=== PATIENT | male | born 1950 | race Caucasian/White ===

== ENCOUNTER 2020-12-23 07:33 | Inpatient (IN) | payer MEDICARE, MEDICAID, SELFPAY ==
[2020-12-23] VITALS (10 sets, daily range): BP systolic 93–196; BP diastolic 58–116; PULSE 106–114; RESP 16–23; TEMP 35.6–37.3; O2SAT 92–100; BMI 19.5
--- NOTE | 2020-12-23 07:44 | EKG12_ITS ---
Test Reason : FALL Blood Pressure : / mmHG Vent. Rate : 108 BPM Atrial Rate : 100 BPM P-R Int : 000 ms QRS Dur : 078 ms QT Int : 344 ms P-R-T Axes : 000 007 061 degrees QTc Int : 460 ms Undetermined rhythm : Consider Atrial Fibrillation Low voltage QRS (Limb Leads) Confirmed by SANDIE ROGERS, LAWANDA ([id number]), loan expeditor ARSLAN GIVENS ([id number]) on 12/27/2020 8:55:06 AM Referred By: EVELIN Confirmed By:LAWANDA HOOPER MD
--- NOTE | 2020-12-23 07:48 | EDS_ITS ---
HPI History of Present Illness Chief Complaint: Fall Informant: patient and EMS Narrative Narrative: 70-year-old male with a history of seizure disorder presents to the emergency department following multiple falls over the past couple days. He tells me about 2 days ago he fell injuring his low back was able to get up and care for himself. He fell again during the night and injured his upper back and was unable to get up off the floor. Eventually he is able to crawl out of the bathroom and call his consulting technical manager of his apartment complex and then EMS was dispatched to his residence. Patient states he feels globally weak. He denies any recent seizure activity. [facility] Medical History (Updated 12/23/20 @ 10:[address] Claude Wilkes DO) High cholesterol Neurofibromatosis Seizures Home Medications ethosuximide [Zarontin] 250 mg PO BID 03/09/13 [History Last Taken Unknown] phenobarbital 32.4 mg PO TID 03/09/13 [History Last Taken Unknown] phenytoin sodium extended 100 mg PO TID 03/09/13 [History Last Taken Unknown] primidone 250 mg PO BID 03/09/13 [History Last Taken Unknown] simvastatin 10 mg PO QHS 12/23/20 [History Last Taken Unknown] Allergy/AdvReac Type Severity Reaction Status Date / Time No Known Allergies Allergy Verified 12/23/20 07:49 Surgical History unable to obtain Social History (Updated 12/23/20 @ 07:[address] Claude Wilkes DO) Smoking Status: Former smoker substance use type: does not use ROS ROS ED Constitutional Constitutional ED: Denies chills, fever(s) or weight loss Eyes Eyes: Denies change in vision or diplopia ENT ENT ED: Denies ear pain, rhinorrhea or sore throat Cardiovascular Cardiovascular: Denies chest pain, orthopnea, palpitations or racing heartbeat Respiratory/Chest Respiratory/Chest: Reports dyspnea and dyspnea on exertion; Denies cough or orthopnea Gastrointestinal Gastrointestinal: Denies abdominal pain, diarrhea, nausea or vomiting Genitourinary Genitourinary ED: Denies dysuria, hematuria or urinary frequency Musculoskeletal Musculoskeletal: Reports back pain and myalgias; Denies arthralgias Integumentary Denies abscess or rash Neurologic Neurologic: Denies headache(s) or weakness Psychiatric Psychiatric: Denies anxiety, depression, suicidal ideation or suicidal thoughts Endocrine Endocrinology: Denies polydipsia, polyphagia or polyuria Allergic/Immunologic Allergic/Immunologic ED: Denies mouth swelling, tongue swelling or urticaria EXAM Physical Exam Narrative Exam Narrative: Patient appears very elderly and frail Const Vital Signs: 12/23/20 07:34 12/23/20 08:04 12/23/20 08:07 Temperature 96.0 F L 96.0 F L Temperature Source Temporal Temporal Pulse Rate 113 H 113 H Respiratory Rate 20 H 20 H Respiratory Effort Normal Non-Labored Blood Pressure 129/105 H 129/105 H Blood Pressure Mean 113 113 Pulse Ox 92 92 Oxygen Delivery Method Room Air Room Air 12/23/20 09:01 12/23/20 10:00 Temperature 96.8 F L 96.5 F L Temperature Source Temporal Temporal Pulse Rate 108 H 109 H Respiratory Rate 20 H 23 H Respiratory Effort Blood Pressure 196/94 H 167/98 H Blood Pressure Mean 128 121 Pulse Ox 92 93 Oxygen Delivery Method Room Air Room Air Positive well nourished and well developed General Appearance ED: well developed HEENT Reports normocephalic, head/scalp atraumatic, TM's clear and moist mucous membranes Negative for trauma Tympanic Membrane ED: Yes TM's clear Eyes PERRL and EOMs intact bilaterally Neck no lymphadenopathy, supple and no JVD Resp normal respiratory effort and clear to auscultation bilaterally Cardio regular rate, regular rhythm and no murmurs GI normal to inspection, nondistended, normoactive bowel sounds and non-tender Palpation: soft Back/Spine normal ROM Back/Spine Narrative: Patient complains of generalized lumbar and thoracic back pain. Extremity General Extremety ED: Negative for edema or tenderness General Extremity: Negative for edema Neuro oriented x3 and CN's II-XII intact bilaterally Sensorium / Orientation: alert Motor Exam: strength 5/5 throughout Psych mental status grossly normal Mood & Affect: Negative for depressed or tearful Skin no rashes or lesions noted Skin Narrative: Patient has some mild erythema possible rug aragon on his knees. MDM MDM MDM Narrative Medical decision making narrative: White count 21.5 hemoglobin 16.2. Platelet count of 275. Urinalysis which was a cath specimen is 5-10 red cells 25-50 white cells 2+ bacteria negative nitrates positive leukocyte esterase. CPK is 4000. Lactic acid is normal. Patient's creatinine is elevated off baseline representing AKA with a significantly high BUN of 80. Dilantin level in the therapeutic range but phenobarbital in the supratherapeutic range. Urine culture and blood cultures were sent. CT of the brain cervical spine chest abdomen pelvis does not show anything acute and no acute fractures. Patient received IV fluids. Patient received a dose of IV Rocephin plan will be for hospitalization for continued care. Lab Data Attestation: I reviewed the patient's lab results. Labs: Laboratory Results - last 24 hr 12/23/20 12/23/20 12/23/20 08:02 08:10 08:10 WBC 21.5 H RBC 4.77 Hgb 16.2 Hct 51.2 MCV 107.3 H MCH 34.0 H MCHC 31.6 L RDW Std Deviation 58.9 H RDW Coeff of Sully 14.7 H Plt Count 275 MPV 9.9 Immature Gran % (Auto) 1.300 H Neut % (Auto) 85.9 H Lymph % (Auto) 5.8 L [place] % (Auto) 6.8 Eos % (Auto) 0.0 Baso % (Auto) 0.2 Absolute Neuts (auto) 18.5 H Absolute Lymphs (auto) 1.24 Nucleated RBC % 0.1 PT 15.4 H INR 1.3 APTT 42.8 H Sodium Potassium Chloride Carbon Dioxide Anion Gap BUN Creatinine Estim Creat Clear Calc Est GFR (MDRD) Af Amer Est GFR (MDRD) Non-Af BUN/Creatinine Ratio Glucose Lactic Acid Calcium Total Bilirubin AST ALT Alkaline Phosphatase Total Creatine Kinase Troponin I High Sens Total Protein Albumin Globulin Albumin/Globulin Ratio Lipase Urine Color Yellow Urine Clarity Sl. Cloudy Urine pH 5.0 Ur Specific [place] 1.020 Urine Protein 30 H Urine Glucose (UA) Normal Urine Ketones 15 H Urine Occult Blood 250 H Urine Nitrite Negative Urine Bilirubin Negative Urine Urobilinogen Normal Ur Leukocyte Esterase 500 H Urine RBC 5-10 SEEN Urine WBC 25-50 SEEN Ur Squamous Epith Cells 0-5 SEEN Urine Bacteria 2+ Urine Mucus 1+ Phenytoin Phenobarbital 12/23/20 12/23/20 12/23/20 08:10 08:10 08:10 WBC RBC Hgb Hct MCV MCH MCHC RDW Std Deviation RDW Coeff of Sully Plt Count MPV Immature Gran % (Auto) Neut % (Auto) Lymph % (Auto) [place] % (Auto) Eos % (Auto) Baso % (Auto) Absolute Neuts (auto) Absolute Lymphs (auto) Nucleated RBC % PT INR APTT Sodium 145 Potassium 4.6 Chloride 110 H Carbon Dioxide 17.0 L Anion Gap 18 H BUN 80 H Creatinine 2.36 H Estim Creat Clear Calc 25.11 Est GFR (MDRD) Af Amer 35 L Est GFR (MDRD) Non-Af 29 L BUN/Creatinine Ratio 33.9 H Glucose 84 Lactic Acid Cancelled Calcium 9.2 Total Bilirubin 0.40 AST 213 H ALT 86 H Alkaline Phosphatase 146 H Total Creatine Kinase 4079 H Troponin I High Sens 28 Total Protein 9.1 H Albumin 3.4 Globulin 5.7 H Albumin/Globulin Ratio 0.6 L Lipase 75 Urine Color Urine Clarity Urine pH Ur Specific [place] Urine Protein Urine Glucose (UA) Urine Ketones Urine Occult Blood Urine Nitrite Urine Bilirubin Urine Urobilinogen Ur Leukocyte Esterase Urine RBC Urine WBC Ur Squamous Epith Cells Urine Bacteria Urine Mucus Phenytoin 11.2 Phenobarbital 51.4 H* 12/23/20 09:25 WBC RBC Hgb Hct MCV MCH MCHC RDW Std Deviation RDW Coeff of Sully Plt Count MPV Immature Gran % (Auto) Neut % (Auto) Lymph % (Auto) [place] % (Auto) Eos % (Auto) Baso % (Auto) Absolute Neuts (auto) Absolute Lymphs (auto) Nucleated RBC % PT INR APTT Sodium Potassium Chloride Carbon Dioxide Anion Gap BUN Creatinine Estim Creat Clear Calc Est GFR (MDRD) Af Amer Est GFR (MDRD) Non-Af BUN/Creatinine Ratio Glucose Lactic Acid 0.6 Calcium Total Bilirubin AST ALT Alkaline Phosphatase Total Creatine Kinase Troponin I High Sens Total Protein Albumin Globulin Albumin/Globulin Ratio Lipase Urine Color Urine Clarity Urine pH Ur Specific [place]kinson Urine Protein Urine Glucose (UA) Urine Ketones Urine Occult Blood Urine Nitrite Urine Bilirubin Urine Urobilinogen Ur Leukocyte Esterase Urine RBC Urine WBC Ur Squamous Epith Cells Urine Bacteria Urine Mucus Phenytoin Phenobarbital Radiography Diagnostic Testing: Clinical Impression(s) from Imaging Studies Brain CT 12/23/20 09:36 IMPRESSION: Chronic involutional changes of the brain. Electronically Signed: Yonatan Correa MD at 10:05 EDT , Service support , Cervical Spine CT 12/23/20 09:36 IMPRESSION: Multilevel degenerative changes, as described above. Multiple well-defined small soft tissue nodules in the cervical region. Electronically Signed: Yonatan Correa MD at 10:07 EDT , Service support , Chest/Abdomen/Pelvis CT 12/23/20 09:36 IMPRESSION: 1.9 cm x 3 some cystic nodule in the anterior lateral aspect of the upper pole of the left kidney with peripheral calcification. Electronically Signed: Yonatan Correa MD at 10:13 EDT , Service support , EKG Initial EKG: Attestation: I personally reviewed and interpreted this EKG as follows: Comments: Sinus tachycardia ventricular rate of 108 bpm Discharge Plan Triage Chief Complaint: Fall ED Provider: Claude Wilkes Dx/Rx/DC Orders Clinical Impression: Acute kidney injury, Acute dehydration, Rhabdomyolysis, Acute UTI, Acute lumbar myofascial strain, Acute cervical myofascial strain Prescriptions: No Action ethosuximide [Zarontin] 250 MG capsule 250 mg PO BID RF: 0 phenytoin sodium extended 100 MG capsule 100 mg PO TID RF: 0 primidone 250 MG tablet 250 mg PO BID RF: 0 phenobarbital 32.4 MG tablet 32.4 mg PO TID RF: 0 simvastatin 10 mg Tablet 10 mg PO QHS RF: 0 Primary Care Provider: Stephanie Tejada Referrals: Stephanie Tejada MD [Primary Care Provider] - Disposition Disposition: [facility]
[2020-12-23] MEDS: 0.9% Normal Saline 1,000 ML 1000 ML IV (08:20)
[2020-12-23 08:26] LABS: Absolute Lymphocyte Count 1.24 X10^3/uL (0.83-4.51); Absolute Neutrophil Count 18.5 X10^3/uL (2.0-7.7); Basophil# 0.05 X10^3/uL; Basophil% 0.2 % (0-1); Hematocrit 51.2 % (40-54); Hemoglobin 16.2 g/dL (13.0-16.5); Lymphocyte # 1.24 X10^3/ul (0.83-4.51); Lymphocyte % 5.8 % (19-41); Mean Corp Hgb Conc 31.6 g/dL (32-36); Mean Corpuscular Volume 107.3 fL (80-94); Mean Platelet Vol. 9.9 fl (6.2-12.0); Monocyte# 1.45 X10^3/uL; Monocyte% 6.8 % (0-10); NRBC Flagged by Analyzer 0.1 % (0-5); Neutrophil # 18.47 X10^3/uL (2.7-7.7); Neutrophil % 85.9 % (47-70); Platelet Count 275 K/mm3 (150-450); RBC Distribution Width CV 14.7 % (11.6-14.6); RBC Distribution Width SD 58.9 fl (35.1-43.9); Red Blood Count 4.77 M/mm3 (4.6-6.2); White Blood Count 21.5 K/mm3 (4.4-11.0)
[2020-12-23 08:31] LABS: International Normalized Ratio 1.3; Prothrombin Time (Protime)PT. 15.4 SECONDS (11.7-14.9)
[2020-12-23 08:32] LABS: Partial Thromboplast Time 42.8 Seconds (24.1-36.2)
[2020-12-23 09:05] LABS: Color, Urine Yellow (Yellow); Glucose, Dipstick Normal (Normal); Ketone-Dipstick 15 mg/dl (Negative); Leukocyte Esterase-Dipstick 500 /ul (Negative); Nitrite-Dipstick Negative (Negative); Occult Blood-Urine 250 /ul (Negative); Protein-Dipstick 30 mg/dl (Negative); Urine Bilirubin Dipstick Negative (Negative); Urine Clarity Sl. Cloudy (Clear); Urine Urobilinogen Normal (Normal)
[2020-12-23 09:16] LABS: Phenytoin (Dilantin) Level 11.2 mL (10.0-20.0)
[2020-12-23 09:18] LABS: Bacteria 2+ /hpf (None Seen); Mucous, Urine 1+ /hpf (<or=2+); Red Blood Cells-Urine 5-10 SEEN /hpf (0-5); Squamous Epithelial Cells - UA 0-5 SEEN /hpf (0-5); White Blood Cells 25-50 SEEN /hpf (0-5)
[2020-12-23 09:31] LABS: ALB/GLOB Ratio 0.6 RATIO (0.9-2.4); AST(SGOT) 213 U/L (15-37); Alanine Aminotransfer ALT/SGPT 86 U/L (16-61); Albumin, Serum 3.4 g/dL (3.2-5.0); Alkaline Phosphatase 146 U/L (45-117); Anion Gap 18 (5-15); BUN 80 mg/dL (7-18); BUN/Creat Ratio 33.9 RATIO (10-20); CPK Total, Creatine Kinase 4079 U/L (39-308); Calcium,Total 9.2 mg/dL (8.5-10.1); Chloride 110 mmol/L (98-107); Creatinine, Serum 2.36 mg/dL (0.70-1.30); EST Glomerular Filtration Rate 29 mL/min (>60); Est Glom Filt Rate - Afr Amer 35 mL/min (>60); Estimated Creatinine Clearance 25.11 ml/min; Globulin 5.7 g/dL (2.2-4.2); Glucose 84 mg/dL (74-106); Lipase 75 U/L (73-393); Potassium 4.6 mmol/L (3.5-5.1); Protein, Total 9.1 g/dL (6.4-8.2); Sodium Level 145 mmol/L (136-145); Troponin-I HS 28 pg/mL (3.0-78.0)
--- NOTE | 2020-12-23 09:36 | CT_ITS ---
STUDY: CT CERVICAL SPINE WITHOUT CONTRAST REASON FOR EXAM: Male, 70 years old. Injury RADIATION DOSAGE (If Supplied By Facility): CTDIvol = ( 14.036 ) mGy, DLP = ( 328.59 ) mGycm TECHNIQUE: High resolution transaxial imaging was performed without contrast material. Sagittal and coronal images were reconstructed. Individualized dose optimization techniques were used for this CT. COMPARISON: None FINDINGS: Multiple subcutaneous nodules are seen in the cervical region. Does the patient have neurofibromatosis? Normal craniovertebral junction. Normal anterior atlantoaxial articulation. Normal odontoid process. Normal cervical lordosis. Normal vertebral bodies and posterior osseous elements. C2-3: Normal endplates. Normal disc height and morphology. Normal central canal and intervertebral neuroforamina. C3-4: Normal endplates. Normal disc height and morphology. Normal central canal and intervertebral neuroforamina. C4-5: Normal endplates. Normal disc height and morphology. Normal central canal and intervertebral neuroforamina. C5-6: Moderate degree of disc space narrowing. Spondylosis. Uncovertebral arthrosis. Facet joint osteoarthritis and hypertrophy. Bilateral neural foraminal stenosis. This is worse on the right side. C6-7: Facet joint osteoarthritis and hypertrophy. Mild degree of bilateral neural foraminal stenosis. C7-T1: Normal endplates. Normal disc height and morphology. Normal central canal and intervertebral neuroforamina. Calcification of the carotid bifurcations bilaterally. CT/Spine Cervical without Contras IMPRESSION: Multilevel degenerative changes, as described above. Multiple well-defined small soft tissue nodules in the cervical region. Electronically Signed: Yonatan Correa MD at 10:07 EDT , Service support ,
--- NOTE | 2020-12-23 09:36 | CT_ITS ---
STUDY: CT BRAIN WITHOUT CONTRAST REASON FOR EXAM: Male, 70 years old. Head injury. RADIATION DOSAGE (If Supplied By Facility): CTDIvol = ( 44.99 ) mGy, DLP = ( 829.85 ) mGycm TECHNIQUE: Transaxial CT imaging of the brain was performed without administration of intravenous contrast material. Individualized dose optimization techniques were used for this CT. COMPARISON: No relevant priors. FINDINGS: There are several well-defined soft tissue nodules in the skull overlying the left posterior parietal and right parietal bones. The largest nodule measures 1 cm x 1.5 cm. Normal calvarium. There is mild cerebral atrophy with widening of the extra-axial spaces and ventricular dilatation. There are areas of decreased attenuation within the white matter tracts of the supratentorial brain, consistent with microvascular disease changes. 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 Normal brainstem. Normal cerebellum. There is no intracranial hemorrhage. There are no findings of an acute ischemic infarction. Atherosclerotic calcification of the cavernous portions of the internal carotid arteries and vertebral arteries. Mild mucosal thickening of the ethmoid sinuses and maxillary sinuses. CT/Brain/Head without Contrast IMPRESSION: Chronic involutional changes of the brain. Electronically Signed: Yonatan Correa MD at 10:05 EDT , Service support ,
--- NOTE | 2020-12-23 09:36 | CT_ITS ---
STUDY: CT CHEST, ABDOMEN T PELVIS WITHOUT CONTRAST REASON FOR EXAM: Male, 70 years old. Trauma RADIATION DOSAGE (If Supplied By Facility): CTDIvol = ( 10.15 ) mGy, DLP = ( 931.67 ) mGycm TECHNIQUE: Transaxial imaging was performed without the administration of intravenous contrast material. Individualized dose optimization techniques were used for this CT. COMPARISON: No relevant priors. FINDINGS: CHEST Small benign-appearing bilateral axillary lymph nodes. Multiple small soft tissue nodules are seen in the anterior and posterior thorax. Findings suggest R no fibromatosis. Hyperinflation. Evidence of bilateral increased interstitial markings and scarring with subpleural blebs worse in the lower lobes. There is no demonstrated pleural abnormality. There are calcifications of the coronary arteries. There are multiple small lymph nodes within the mediastinum, which are normal in size and morphology most compatible with reactive lymph hyperplasia. Normal hilar regions. Normal unenhanced pulmonary arteries. There is atherosclerotic calcification of the aortic arch . There is demineralization of the thoracic spine. ABDOMEN Normal liver. Normal gallbladder and extrahepatic biliary system. Normal spleen. Normal pancreas. Normal bilateral adrenal glands. Normal right kidney. There is a 1.9 cm x 3 cm cystic nodule in the anterior lateral aspect of the upper pole of the left kidney with peripheral calcification. There is a small hiatal hernia. Normal small intestine. Normal colon. The appendix is visualized and appears normal. There is diffuse atherosclerotic calcification of the abdominal aorta and its major visceral branches, without a demonstrated aneurysm. Normal inferior vena cava. Normal retroperitoneum. Normal abdominal wall. Loss of the normal cervical lordosis. Disc space narrowing at the L2-L3 level. PELVIS A BRODY catheter is seen within the urinary bladder. Urinary bladder is empty. The prostate is enlarged. It measures 5 cm x 4.7 cm. Calcifications are seen within it. CT/CT Chest, Abd, Pelvis WO Cont IMPRESSION: 1.9 cm x 3 some cystic nodule in the anterior lateral aspect of the upper pole of the left kidney with peripheral calcification. Electronically Signed: Yonatan Correa MD at 10:13 EDT , Service support ,
[2020-12-23] MEDS: 0.9% Normal Saline 1,000 ML 250 ML IV (09:52)
[2020-12-23] MEDS: Ceftriaxone 1 GM/50 ML BAG IV (09:53)
[2020-12-23 10:20] LABS: Lactic Acid 0.6 mmol/L (0.4-1.9)
--- NOTE | 2020-12-23 11:46 | PCS.PANDOC ---
PANDEMIC DOCUMENTATION INITIATED: Date: 10/10/2020 Time: 190
[2020-12-23] MEDS: 0.9% Normal Saline 1,000 ML 150 ML IV ×2 (14:18→21:02)
--- NOTE | 2020-12-23 15:50 | CASEMGMT ---
HUGH SAGASTUME OYSTER WASHER TANIKA to room to meet with patient for initial transition planning/care coordination assessment. HUGH SAGASTUME introduced self and role at [facility]. Pt voices understanding and consents to assessment at this time. Pt resting in bed in no distress at this time. Brother, Daniel, is at bedside. Pt is A/O at this time and answers all questions appropriately. Care providers, pharmacy, and demographics verified/updated at this time. PCP: Dr Tejada. Pt last saw her in person about 1 1/2 yrs ago prior to COVID and has had 1-2 phone appts w/her since then. Specialists: Dr Godfrey @ [facility] Preferred Pharmacy: [facility] Insurance: [employer] Prescription Benefit: Yes Living Will/HPOA: Pt and danyelle state they do not think pt has LW or HCPOA and pt would like to complete these while @ [facility]. Pt states would want his brother, Daniel Hawthorne to be primary POA and 1st alternative to be his sister, Sharlene Hawthorne. Aparna GUALLPA, made aware. LNOK: Daniel, Brother. Sharlene Collado, sister. Pt also has 2 other brothers. Living Arrangements: Lives alone in single-story apartment w/3 steps to enter. Pt was independent w/ADL's and IADL's until recently he has become very weak and has had multiple falls. (Pt states he was able to do his own grocery shopping, prepare meals, home mgmt tasks, etc, prior) Transportation: Pt purchases taxi vouchers and uses [employer]. Brother, Daniel, takes him to dr palacios when available. DME: Denies using any DME. He has a cane but does not use it. HHC/SNF: No hx of either. Pt states he would like to go to SNF @ d/c and wants to get 100% better before returning home. Neither pt nor brother have preference and would like to review list of SNF's. PLAN: SNF [facility], aware of pt would like to complete AD and also pt wishing to go to SNF @ d/c and pt/brother would like list to review. Dede SNYDER RN, CM
[2020-12-23] MEDS: Phenytoin Na 100 MG Capsule PO (17:12)
--- NOTE | 2020-12-23 17:29 | CASEMGMT ---
Social Work Note SW received consult for SNF placement and Advanced Directives. SW in to speak with pt. Pt currently working with PT. SW introduced self and role at [facility]. SW spoke with pt about SNF. Patient was provided a list of SNF providers including quality and resource use data and consistent with the patient?s preferred geographic region, medical needs, and insurance network. SW also provided pt with advanced directives. SW informed pt that this worker will have SW check in with pt tomorrow regarding SNF choices and advanced directives. Pt states understanding. Plan: SNF pending acceptance and pre-cert [facility]
--- NOTE | 2020-12-23 18:07 | HP.PCM.HOS_ITS ---
HPI - General General Date of Admission: 12/23/20 HPI Narrative SABA DOMINGUEZ, is a 70 M who presents to the hospital after being found down for possible over 24 hours. He has a history of neurofibromatosis and has been getting weak over the last several days, he states that he has had multiple falls since Saturday and his last time he fell yesterday morning he was unable to get up. He was able to crawl and call for help and was brought to the ER. He has also had some weight loss, initially it was on purpose but he states lately he is just lost his appetite and has not been eating a whole lot at home. In the ER he was found to have an elevated CPK over 4000 with a creatinine of 2.36 which is above normal for him. He was also found to have a likely UTI with a leukocytosis. [facility] Medical History (Updated 12/23/20 @ 18:[address] Chase Bruno MD) High cholesterol Migraines Neurofibromatosis Seizures Home Medications ethosuximide [Zarontin] 250 mg PO BID 03/09/13 [History Last Taken 12/21/20] phenobarbital 32.4 mg PO TID 03/09/13 [History Last Taken 12/20/20] phenytoin sodium extended 100 mg PO TID 03/09/13 [History Last Taken 12/21/20] primidone 250 mg PO BID 03/09/13 [History Last Taken 12/21/20] fluticasone propionate [Flonase] 1 spray INTRANASAL DAILY 12/23/20 [History Last Taken 12/21/20] latanoprost 1 drp EACH EYE DAILY 12/23/20 [History Last Taken 12/21/20] simvastatin 10 mg PO QHS 12/23/20 [History Last Taken 12/20/20] vit D3-folic [id number] 1 tab PO DAILY 12/23/20 [History Last Taken 12/21/20] Allergy/AdvReac Type Severity Reaction Status Date / Time No Known Allergies Allergy Verified 12/23/20 07:49 Family History (Updated 12/23/20 @ 18:[address] Chase Bruno MD) Other CVA (cerebral vascular accident) Surgical History unable to obtain no surgical history Social History (Updated 12/23/20 @ 07:[address] Claude Wilkes DO) Smoking Status: Former smoker substance use type: does not use ROS Constitutional Constitutional: Reports weakness; Denies chills, fatigue, fever(s) or malaise Eyes Eyes: Denies blurry vision ENT HEENT: Denies headache(s) or nasal discharge Cardiovascular Cardiovascular: Denies chest pain, dyspnea on exertion or syncope Respiratory/Chest Respiratory/Chest: Denies cough, shortness of breath at rest or shortness of breath with exertion Gastrointestinal Gastrointestinal: Denies constipation, diarrhea, nausea or vomiting Genitourinary Genitourinary: Denies dysuria Musculoskeletal Musculoskeletal: Reports back pain Neurologic Neurologic: Denies focal weakness, numbness or tremor(s) Psychiatric Psychiatric: Denies anxiety or depression Vital Signs Vital Signs Vital Signs: 12/23/20 07:34 12/23/20 08:04 12/23/20 08:07 Temperature 96.0 F L 96.0 F L Temperature Source Temporal Temporal Pulse Rate 113 H 113 H Respiratory Rate 20 H 20 H Respiratory Effort Normal Non-Labored Respiratory Depth Respiratory Pattern Blood Pressure 129/105 H 129/105 H Blood Pressure Mean 113 113 Blood Pressure Source Blood Pressure Position Blood Pressure Location Pulse Ox 92 92 Oxygen Delivery Method Room Air Room Air Oxygen Flow Rate (L/min) 12/23/20 09:01 12/23/20 10:00 12/23/20 10:40 Temperature 96.8 F L 96.5 F L 97.7 F L Temperature Source Temporal Temporal Axillary Pulse Rate 108 H 109 H Respiratory Rate 20 H 23 H Respiratory Effort Respiratory Depth Respiratory Pattern Blood Pressure 196/94 H 167/98 H Blood Pressure Mean 128 121 Blood Pressure Source Blood Pressure Position Blood Pressure Location Pulse Ox 92 93 Oxygen Delivery Method Room Air Room Air Oxygen Flow Rate (L/min) 12/23/20 11:16 12/23/20 12:21 12/23/20 12:38 Temperature 97.7 F L 97 F L Temperature Source Oral Temporal Pulse Rate 114 H 112 H Respiratory Rate 20 H 16 Respiratory Effort Normal Respiratory Depth Normal Respiratory Pattern Normal Blood Pressure 106/65 154/116 H Blood Pressure Mean 78 128 Blood Pressure Source Monitor Blood Pressure Position Semi-Fowlers Blood Pressure Location Right Arm Pulse Ox 95 93 Oxygen Delivery Method Nasal Cannula Nasal Cannula Nasal Cannula Oxygen Flow Rate (L/min) 2 2 2 12/23/20 17:22 Temperature 97.7 F L Temperature Source Oral Pulse Rate 106 H Respiratory Rate 16 Respiratory Effort Respiratory Depth Respiratory Pattern Blood Pressure 96/58 L Blood Pressure Mean 70 Blood Pressure Source Monitor Blood Pressure Position Semi-Fowlers Blood Pressure Location Left Arm Pulse Ox 100 Oxygen Delivery Method Nasal Cannula Oxygen Flow Rate (L/min) 2 Weight Weight: 128 lb Body Mass Index (BMI) 20.0 Physical Exam Const alert, oriented x3 and no apparent distress General Appearance: cooperative HEENT normocephalic and moist oral mucous membranes Eyes PERRL, EOMs intact bilaterally and conjunctivae normal Neck supple and no JVD Resp normal respiratory effort, no retractions, no use of accessory muscles and clear to auscultation bilaterally Auscultation: Negative for crackles, rales, rhonchi or wheezes Cardio regular rate, regular rhythm, S1 normal heart sound, S2 normal heart sound and no murmurs GI soft to palpation, non-tender and non-distended; Negative for hepatosplenomegaly Extremity no clubbing, cyanosis or edema Skin Skin Narrative: Extensive neurofibromas as well as abrasions his bilateral lower extremities Neuro no focal motor deficits and no sensory deficits noted Psych affect normal Appearance: appropriate Results Lab / Micro Data Result Diagrams: 12/23/20 08:10 12/23/20 08:10 Labs: Laboratory Results - last 24 hr 12/23/20 08:02: Urine Color Yellow, Urine Clarity Sl. Cloudy, Urine pH 5.0, Ur Specific [place] 1.020, Urine Protein 30 H, Urine Glucose (UA) Normal, Urine Ketones 15 H, Urine Occult Blood 250 H, Urine Nitrite Negative, Urine Bilirubin Negative, Urine Urobilinogen Normal, Ur Leukocyte Esterase 500 H, Urine RBC 5-10 SEEN, Urine WBC 25-50 SEEN, Ur Squamous Epith Cells 0-5 SEEN, Urine Bacteria 2+, Urine Mucus 1+ 12/23/20 08:10: WBC 21.5 H, RBC 4.77, Hgb 16.2, Hct 51.2, MCV 107.3 H, MCH 34.0 H, MCHC 31.6 L, RDW Std Deviation 58.9 H, RDW Coeff of Sully 14.7 H, Plt Count 275, MPV 9.9, Immature Gran % (Auto) 1.300 H, Neut % (Auto) 85.9 H, Lymph % (Auto) 5.8 L, [place] % (Auto) 6.8, Eos % (Auto) 0.0, Baso % (Auto) 0.2, Absolute Neuts (auto) 18.5 H, Absolute Lymphs (auto) 1.24, Nucleated RBC % 0.1 12/23/20 08:10: PT 15.4 H, INR 1.3, APTT 42.8 H 12/23/20 08:10: Sodium 145, Potassium 4.6, Chloride 110 H, Carbon Dioxide 17.0 L , Anion Gap 18 H, BUN 80 H, Creatinine 2.36 H, Estim Creat Clear Calc 25.11, Est GFR (MDRD) Af Amer 35 L, Est GFR (MDRD) Non-Af 29 L, BUN/Creatinine Ratio 33.9 H , Glucose 84, Calcium 9.2, Total Bilirubin 0.40, AST 213 H, ALT 86 H, Alkaline Phosphatase 146 H, Total Creatine Kinase 4079 H, Troponin I High Sens 28, Total Protein 9.1 H, Albumin 3.4, Globulin 5.7 H, Albumin/Globulin Ratio 0.6 L, Lipase 75 12/23/20 08:10: Lactic Acid Cancelled 12/23/20 08:10: Phenytoin 11.2, Phenobarbital 51.4 H* 12/23/20 09:25: Lactic Acid 0.[address] 12/23/20 09:36 IMPRESSION: Chronic involutional changes of the brain. Electronically Signed: Yonatan Correa MD at 10:05 EDT , Service support , Cervical Spine CT 12/23/20 09:36 IMPRESSION: Multilevel degenerative changes, as described above. Multiple well-defined small soft tissue nodules in the cervical region. Electronically Signed: Yonatan Correa MD at 10:07 EDT , Service support , Chest/Abdomen/Pelvis CT 12/23/20 09:36 IMPRESSION: 1.9 cm x 3 some cystic nodule in the anterior lateral aspect of the upper pole of the left kidney with peripheral calcification. Electronically Signed: Yonatan Correa MD at 10:13 EDT , Service support , Assessment & Plan Assessment/Plan (1) Rhabdomyolysis: (2) Acute UTI: (3) Acute kidney injury: (4) Sepsis: PLAN: 1. Sepsis secondary to UTI complicated by rhabdomyolysis/ARTURO -UA is consistent with UTI, will continue with Rocephin -Continue with aggressive IV fluids secondary to his sepsis and his rhabdomyolysis -Repeat CPK in the morning -Blood cultures and urine cultures are pending -PT/OT for evaluation and placement 2. Neurofibromatosis/epilepsy -We will obtain a speech therapy consult secondary to some swallowing issues at the bedside swallow by nursing -If unable to continue with p.o. antiseizure medications, will make adjustments to IV -Phenytoin level is normal DVT: SCDs Charges/Coding Visit Charges Inpatient E&M: 67419 Init Hosp L3
[2020-12-23] MEDS: 0.9% Saline Lock 10 ML Syringe IV (21:02)
[2020-12-23] MEDS: Primidone 250 MG Tablet PO (21:04)
[2020-12-23] MEDS: Atorvastatin Calcium 10 MG Tablet 5 MG PO (21:04)
[2020-12-23] MEDS: ETHOSUXIMIDE 250 MG CAPSULE PO (21:19)
[2020-12-24] VITALS (15 sets, daily range): BP systolic 81–124; BP diastolic 42–72; PULSE 74–128; RESP 18–30; TEMP 36.6–39.5; O2SAT 93–99
[2020-12-24] MEDS: 0.9% Normal Saline 1,000 ML 150 ML IV (03:12)
[2020-12-24 06:37] LABS: Absolute Lymphocyte Count 0.67 X10^3/uL (0.83-4.51); Eosinophil# 0.01 X10^3/uL; Eosinophils% 0.1 % (0-5); Hematocrit 34.4 % (40-54); Hemoglobin 11.1 g/dL (13.0-16.5); Lymphocyte # 0.67 X10^3/ul (0.83-4.51); Lymphocyte % 7.1 % (19-41); Mean Corp Hgb Conc 32.3 g/dL (32-36); Mean Corpuscular Hgb 33.9 pg (27.0-32.0); Mean Corpuscular Volume 105.2 fL (80-94); Mean Platelet Vol. 9.6 fl (6.2-12.0); Monocyte# 0.73 X10^3/uL; Monocyte% 7.7 % (0-10); NRBC Flagged by Analyzer 0 % (0-5); Neutrophil # 8.02 X10^3/uL (2.7-7.7); Neutrophil % 84.6 % (47-70); Platelet Count 136 K/mm3 (150-450); RBC Distribution Width CV 14.8 % (11.6-14.6); RBC Distribution Width SD 56.8 fl (35.1-43.9); Red Blood Count 3.27 M/mm3 (4.6-6.2); White Blood Count 9.5 K/mm3 (4.4-11.0)
[2020-12-24 07:33] LABS: Anion Gap 3 (5-15); BUN 40 mg/dL (7-18); BUN/Creat Ratio 35.1 RATIO (10-20); Calcium,Total 7.9 mg/dL (8.5-10.1); Chloride 123 mmol/L (98-107); Creatinine, Serum 1.14 mg/dL (0.70-1.30); EST Glomerular Filtration Rate 68 mL/min (>60); Est Glom Filt Rate - Afr Amer 82 mL/min (>60); Estimated Creatinine Clearance 50.22 ml/min; Glucose 113 mg/dL (74-106); Potassium 4.2 mmol/L (3.5-5.1); Sodium Level 150 mmol/L (136-145)
[2020-12-24] MEDS: Ceftriaxone 1 GM/50 ML BAG IV (10:07)
[2020-12-24] MEDS: Primidone 250 MG Tablet PO ×2 (10:11→20:43)
[2020-12-24] MEDS: Phenytoin Na 100 MG Capsule PO ×3 (10:11→17:03)
[2020-12-24] MEDS: ETHOSUXIMIDE 250 MG CAPSULE PO ×2 (10:14→20:48)
--- NOTE | 2020-12-24 10:15 | PN.HOSP_ITS ---
Subjective Subjective Doing well, no issues overnight. Does have some back pain that is rating a 4 out of 10 Objective Data Objective Data Vital Signs: Vital Signs Temp Pulse Resp BP Pulse Ox 98.8 F 106 H 20 H 95/54 L 94 12/24/20 08:36 12/24/20 08:36 12/24/20 08:36 12/24/20 08:36 12/24/20 08:36 Oxygen Flow Rate (L/min) 2 Oxygen Delivery Method Nasal Cannula Weight: 128 lb Body Mass Index (BMI) 20.0 Intake & Output: Intake and Output for Last 24 Hours 12/23/20 12/24/20 12/25/20 03:59 03:59 03:59 Intake Total 3975.00 / 3975.00 862.5 / 862.5 Output Total 950 / 950 275 / 275 Balance 3025.00 / 3025.00 587.5 / 587.5 Lab / Micro Data Result Diagrams: 12/24/20 06:30 12/24/20 06:30 Labs: Laboratory Results - last 24 hr 12/23/20 09:25: Lactic Acid 0.6 12/24/20 06:30: WBC 9.5, RBC 3.27 L, Hgb 11.1 L, Hct 34.4 L, MCV 105.2 H, MCH 33.9 H, MCHC 32.3, RDW Std Deviation 56.8 H, RDW Coeff of Sully 14.8 H, Plt Count 136 L, MPV 9.6, Immature Gran % (Auto) 0.500, Neut % (Auto) 84.6 H, Lymph % (Auto) 7.1 L, [place] % (Auto) 7.7, Eos % (Auto) 0.1, Baso % (Auto) 0.0, Absolute Neuts (auto) 8.0 H, Absolute Lymphs (auto) 0.67 L, Nucleated RBC % 0 12/24/20 06:30: Sodium 150 H, Potassium 4.2, Chloride 123 H, Carbon Dioxide 24.0, Anion Gap 3 L, BUN 40 H, Creatinine 1.14, Estim Creat Clear Calc 50.22, Est GFR (MDRD) Af Amer 82, Est GFR (MDRD) Non-Af 68, BUN/Creatinine Ratio 35.1 H , Glucose 113 H, Calcium 7.9 L 12/24/20 06:30: Phenobarbital 44.3 H* Physical Exam Const alert, oriented x3 and no apparent distress General Appearance: cooperative HEENT normocephalic and moist oral mucous membranes Eyes PERRL, EOMs intact bilaterally and conjunctivae normal Neck supple and no JVD Resp normal respiratory effort, no retractions, no use of accessory muscles and clear to auscultation bilaterally Auscultation: Negative for crackles, rales, rhonchi or wheezes Cardio regular rate, regular rhythm, S1 normal heart sound, S2 normal heart sound and no murmurs GI soft to palpation, non-tender and non-distended; Negative for hepatosplenomegaly Extremity no clubbing, cyanosis or edema Skin Skin Narrative: Extensive neurofibromas as well as abrasions over his bilateral lower extremities Neuro no focal motor deficits and no sensory deficits noted Psych affect normal Appearance: appropriate Assessment & Plan Assessment/Plan (1) Rhabdomyolysis: (2) Acute UTI: (3) Acute kidney injury: (4) Sepsis: PLAN: 1. Sepsis secondary to UTI complicated by rhabdomyolysis/ARTURO -UA is consistent with UTI, will continue with Rocephin -Creatinine has improved, however he is now hypernatremic and hyperchloremic therefore we will change him over to D5W -Repeat CPK in the morning -Blood cultures and urine cultures are pending -PT/OT for evaluation and placement -Speech therapy for evaluation 2. Neurofibromatosis/epilepsy -We will obtain a speech therapy consult secondary to some swallowing issues at the bedside swallow by nursing -If unable to continue with p.o. antiseizure medications, will make adjustments to IV -Phenytoin level is normal DVT: SCDs Charges/Coding Visit Charges Inpatient E&M: 89184 Subs Hosp L2
--- NOTE | 2020-12-24 13:00 | CM.ED ---
SW Note Referral Source: SW Referral Reason: Discharge Planning and Advanced Directive SW met with patient and his brother, Daniel Bella. Shayne inquired about the list and stated that his sister in law works at the [facility] but it is not highlighted. RAMU explained highlighted SNFs are in network. RAMU asked if family has determined a SNF and Shayne said that his sister is working on researching it now. RAMU requested that they leave message for Assigned child welfare caseworker, Syl, so she is aware of the plan on Saturday. Shayne verbalized understanding. SW and RN met with patient as Shayne had completed the Advanced Directives and this greeting card writer and RN were going to witness. However, patient started to sit up to sign but then said that he was having difficulty breathing. SW asked patient if he wanted to proceed to sign the Advanced Directives or wait to sign later. Patient said that he would sign them later. Shayne said that patient and him have discussed his (patients) wishes and are clear about the patient's desires and wishes but the Advanced Directives are a formality. Patient will be here over the weekend, per family, and thus assigned social secretary can follow up with patient on Saturday. RAMU provided Shayne with unit phone call and assigned social secretary phone number as he inquired as to how to obtain information. RAMU advised he can call unit or social secretary for status update. No other issues or concerns voiced. RAMU updated this is daily report. Plan: SNF at discharge. Anitha MELO
--- NOTE | 2020-12-24 13:20 | EKG12_ITS ---
Test Reason : MORNING EKG Blood Pressure : / mmHG Vent. Rate : 093 BPM Atrial Rate : 093 BPM P-R Int : 138 ms QRS Dur : 084 ms QT Int : 350 ms P-R-T Axes : 035 -08 035 degrees QTc Int : 435 ms Sinus rhythm with Premature atrial complexes Otherwise normal ECG When compared with ECG of 25-DEC-2020 18:20, MANUAL COMPARISON REQUIRED, DATA IS UNCONFIRMED Confirmed by LEIF ROGERS, LOYD ([id number]), website/blog editor ARSLAN GIVENS ([id number]) on 12/27/2020 12:29:10 P M Referred By: NIKHIL Confirmed By:BRADY YADAV MD
--- NOTE | 2020-12-24 13:25 | RAD_ITS ---
History: SOB EXAMINATION/TECHNIQUE: XR Chest 1 View: Portable COMPARISON: CT chest December 23, 2020 FINDINGS: LINES/DEVICES: None. LUNGS: Bilateral interstitial lung densities consistent with acute or chronic interstitial lung disease. No pneumothorax. MEDIASTINUM AND CARDIOVASCULAR STRUCTURES: Cardiac silhouette not enlarged. Central airways and mediastinal contour are unremarkable. BONES AND SOFT TISSUES: Unremarkable. RAD/Chest 1 View (Portable) IMPRESSION: Diffuse interstitial lung disease. at 1437 Reported and signed by: Jarett Hodgson MD Electronically Signed: Jarett Hodgson MD at 14:36 EDT Tel , Service support ,
[2020-12-24] MEDS: Lidocaine 5% Patch 1 PATCH TOPICAL (13:30)
--- NOTE | 2020-12-24 13:30 | NURSING ---
Patient was sitting in chair, states it was hard the breathe. VS taken and pulse ox was in the 70's. Patient was tachycardic. physical integration practitioner was called and patient was placed on non-rebreather. He was assisted back to bed. Dr. Bruno was notified and orders for EKG and chest xray were obtained. Pulse ox in the 90's with the NRB on. Was eventually weaned to 5L 02 N/C. Will continue to monitor.
--- NOTE | 2020-12-24 14:19 | CT_ITS ---
EXAM: CT ANGIOGRAPHY CHEST WITHOUT AND WITH INTRAVENOUS CONTRAST : 1950 CLINICAL INDICATION: Shortness of breath TECHNIQUE: Helically acquired angiography images were obtained of the chest without and with intravenous contrast. This CT exam was performed using one or more of the following dose reduction techniques: automated exposure control, adjustment of the mA and/or kV according to patient size, and/or use of iterative reconstruction technique. This report was created using [employer] report generation technology. MIP reconstructed images were created and reviewed. CONTRAST: IV 100mL Isovue-370 COMPARISON: December 23, 2020 FINDINGS: PULMONARY ARTERIES: Unremarkable. Normal in caliber. No evidence of pulmonary embolism. AORTA: Unremarkable. Normal in caliber. No evidence of dissection. GREAT VESSELS OF AORTIC ARCH: Unremarkable. Normal in caliber. No evidence of dissection. LUNGS AND PLEURAL SPACES: Increasing airspace opacification of both lower lobes of the lung which may represent pneumonia or pulmonary edema. The peripheral interstitial thickening of both lungs again seen related to chronic interstitial lung disease. Small peripheral pulmonary blebs are noted. No mass. No pleural effusion or thickening. HEART: Heart is normal size. No pericardial effusion. No signs of right heart strain. MEDIASTINUM: Moderate size hiatal hernia again noted. Stable prominent mediastinal lymph nodes noted likely reactive in nature. Esophagus is unremarkable. THYROID: Unremarkable. No thyroid lesions. BONES/JOINTS: Unremarkable. No suspicious lytic or blastic abnormality. CT/CTA Chest W/WO Contrast IMPRESSION: 1. No evidence of acute pulmonary embolism. 2. Increasing bibasilar pulmonary opacification which may represent pneumonia or pulmonary edema. 3. Chronic interstitial lung disease. Individualized dose optimization techniques were used for this CT. at 1637 Reported and signed by: Jarett Hodgson MD Electronically Signed: Jarett Hodgson MD at 16:36 EDT Tel , Service support ,
[2020-12-24] MEDS: Acetaminophen 325 MG Tablet 650 MG PO (14:49)
--- NOTE | 2020-12-24 16:58 | NURSING ---
LAB CALLED WITH RESULTS FOR BLOOD CULTURE AND TEXT SENT TO THIERRY Villarreal
[2020-12-24] MEDS: Furosemide 20 MG/2 ML VIAL IV (17:03)
[2020-12-24] MEDS: 0.9% Saline Lock 10 ML Syringe IV ×2 (17:03→20:44)
[2020-12-24] MEDS: Atorvastatin Calcium 10 MG Tablet 5 MG PO (20:43)
[2020-12-25] VITALS (23 sets, daily range): BP systolic 73–122; BP diastolic 45–68; PULSE 89–163; RESP 18–25; TEMP 36.4–39; O2SAT 92–100
[2020-12-25 06:34] LABS: Absolute Lymphocyte Count 1.01 X10^3/uL (0.83-4.51); Absolute Neutrophil Count 5.3 X10^3/uL (2.0-7.7); Basophil# 0.01 X10^3/uL; Basophil% 0.1 % (0-1); Eosinophil# 0.04 X10^3/uL; Eosinophils% 0.6 % (0-5); Hematocrit 33.3 % (40-54); Hemoglobin 10.9 g/dL (13.0-16.5); Lymphocyte # 1.01 X10^3/ul (0.83-4.51); Lymphocyte % 14.5 % (19-41); Mean Corp Hgb Conc 32.7 g/dL (32-36); Mean Corpuscular Hgb 34.2 pg (27.0-32.0); Mean Corpuscular Volume 104.4 fL (80-94); Mean Platelet Vol. 9.5 fl (6.2-12.0); Monocyte# 0.56 X10^3/uL; NRBC Flagged by Analyzer 0 % (0-5); Neutrophil # 5.32 X10^3/uL (2.7-7.7); Neutrophil % 76.2 % (47-70); Platelet Count 102 K/mm3 (150-450); RBC Distribution Width CV 14.7 % (11.6-14.6); RBC Distribution Width SD 57.5 fl (35.1-43.9); Red Blood Count 3.19 M/mm3 (4.6-6.2)
[2020-12-25 07:22] LABS: ALB/GLOB Ratio 0.5 RATIO (0.9-2.4); AST(SGOT) 82 U/L (15-37); Alanine Aminotransfer ALT/SGPT 49 U/L (16-61); Alkaline Phosphatase 106 U/L (45-117); Anion Gap 5 (5-15); BUN 18 mg/dL (7-18); BUN/Creat Ratio 24.1 RATIO (10-20); CPK Total, Creatine Kinase 1025 U/L (39-308); Calcium,Total 8.2 mg/dL (8.5-10.1); Chloride 116 mmol/L (98-107); Creatinine, Serum 0.75 mg/dL (0.70-1.30); EST Glomerular Filtration Rate 110 mL/min (>60); Est Glom Filt Rate - Afr Amer 133 mL/min (>60); Estimated Creatinine Clearance 57.25 ml/min; Glucose 93 mg/dL (74-106); Potassium 3.5 mmol/L (3.5-5.1); Sodium Level 147 mmol/L (136-145)
[2020-12-25] MEDS: Phenytoin Na 100 MG Capsule PO ×3 (08:24→16:57)
[2020-12-25] MEDS: Furosemide 20 MG/2 ML VIAL IV (08:24)
[2020-12-25] MEDS: Ceftriaxone 1 GM/50 ML BAG IV (09:58)
[2020-12-25] MEDS: Lidocaine 5% Patch 1 PATCH TOPICAL (09:58)
[2020-12-25] MEDS: Primidone 250 MG Tablet PO ×2 (09:59→21:14)
[2020-12-25] MEDS: ETHOSUXIMIDE 250 MG CAPSULE PO ×2 (10:02→21:14)
[2020-12-25] MEDS: Phenobarbital 32.4 MG Tablet PO ×2 (10:02→21:17)
--- NOTE | 2020-12-25 11:08 | PCM.PN.HOSP ---
Subjective Subjective Doing well, his oxygen has improved a little bit down to 3 L nasal cannula. He does have crackles on exam. The Lasix helped yesterday. His blood pressures to that this morning are stable at 122 systolic Objective Data Objective Data Vital Signs: Vital Signs Temp Pulse Resp BP Pulse Ox 98.4 F 91 20 H 92/57 L 94 12/25/20 09:56 12/25/20 09:56 12/25/20 09:56 12/25/20 09:56 12/25/20 09:56 Oxygen Flow Rate (L/min) 3 Oxygen Delivery Method Room Air Weight: 128 lb Body Mass Index (BMI) 20.0 Intake & Output: Intake and Output for Last 24 Hours 12/24/20 12/25/20 12/26/20 03:59 03:59 03:59 Intake Total 3975.00 / 3975.00 2296.25 / 2296.25 250 / 250 Output Total 950 / 950 2050 / 2050 375 / 375 Balance 3025.00 / 3025.00 246.25 / 246.25 -125 / -125 Lab / Micro Data Result Diagrams: 12/25/20 06:00 12/25/20 06:00 Labs: Laboratory Results - last 24 hr 12/25/20 06:00: WBC 7.0, RBC 3.19 L, Hgb 10.9 L, Hct 33.3 L, MCV 104.4 H, MCH 34.2 H, MCHC 32.7, RDW Std Deviation 57.5 H, RDW Coeff of Sully 14.7 H, Plt Count 102 L, MPV 9.5, Immature Gran % (Auto) 0.600, Neut % (Auto) 76.2 H, Lymph % (Auto) 14.5 L, [place] % (Auto) 8.0, Eos % (Auto) 0.6, Baso % (Auto) 0.1, Absolute Neuts (auto) 5.3, Absolute Lymphs (auto) 1.01, Nucleated RBC % 0 12/25/20 06:00: Sodium 147 H, Potassium 3.5, Chloride 116 H, Carbon Dioxide 26.0, Anion Gap 5, BUN 18, Creatinine 0.75, Estim Creat Clear Calc 57.25, Est GFR (MDRD) Af Amer 133, Est GFR (MDRD) Non-Af 110, BUN/Creatinine Ratio 24.1 H, Glucose 93, Calcium 8.2 L, Total Bilirubin 0.30, AST 82 H, ALT 49, Alkaline Phosphatase 106, Total Creatine Kinase 1025 H, Total Protein 6.0 L, Albumin 2.0 L, Globulin 4.0, Albumin/Globulin Ratio 0.5 L Micro: Microbiology 12/23/20 08:02 Urine Catheter - Whitaker Urine Culture - Preliminary Gram negative danilo 12/23/20 08:59 Blood Culture (Wb) - Anticubital Left Blood Culture - Preliminary No growth in 48 hours. 12/23/20 08:10 Blood Culture (Wb) - Anticubital Left Bacteria Detection (PCR) - Final Coag Negative Staph 12/23/20 08:10 Blood Culture (Wb) - Anticubital Left Blood Culture - Preliminary Radiography Diagnostic Testing: Radiology Impression Chest X-Ray 12/24/20 13:25 IMPRESSION: Diffuse interstitial lung disease. at 1437 Reported and signed by: Jarett Hodgson MD Electronically Signed: Jarett Hodgson MD at 14:36 EDT Tel , Service support , Chest CTA 12/24/20 14:19 IMPRESSION: 1. No evidence of acute pulmonary embolism. 2. Increasing bibasilar pulmonary opacification which may represent pneumonia or pulmonary edema. 3. Chronic interstitial lung disease. Individualized dose optimization techniques were used for this CT. at 1637 Reported and signed by: Jarett Hodgson MD Electronically Signed: Jarett Hodgson MD at 16:36 EDT Tel , Service support , Physical Exam Const alert, oriented x3 and no apparent distress General Appearance: cooperative HEENT normocephalic and moist oral mucous membranes Eyes PERRL, EOMs intact bilaterally and conjunctivae normal Neck supple and no JVD Resp normal respiratory effort, no retractions and no use of accessory muscles Auscultation: crackles; Negative for rales, rhonchi or wheezes Cardio regular rate, regular rhythm, S1 normal heart sound, S2 normal heart sound and no murmurs GI soft to palpation, non-tender and non-distended; Negative for hepatosplenomegaly Extremity no clubbing, cyanosis or edema Skin Skin Narrative: Extensive neurofibromas as well as abrasions over his bilateral lower extremities Neuro no focal motor deficits and no sensory deficits noted Psych affect normal Appearance: appropriate Assessment & Plan Assessment/Plan (1) Rhabdomyolysis: (2) Acute UTI: (3) Acute kidney injury: (4) Sepsis: (5) Acute respiratory failure with hypoxia: (6) Pulmonary edema: PLAN: 1. Sepsis secondary to UTI complicated by rhabdomyolysis/Acute hypoxic respiratory failure secondary to pulmonary edema/ARTURO -UA is consistent with UTI, will continue with Rocephin -We will discontinue all fluids secondary to his episode last evening where he became significantly hypoxic and tachycardic. CTA of the chest was negative for PE and he did have significant improvement with a dose of Lasix which will be repeated this morning. -Repeat CPK in the morning -Blood cultures with 1 out of 4 coag negative staph, urine cultures with gram-negative danilo. Blood cultures are contaminant -PT/OT for evaluation and placement -Speech therapy for evaluation 2. Neurofibromatosis/epilepsy -Speech therapy evaluated him and made recommendations for pur?ed food and nectar thick liquids -Phenytoin level is normal and phenobarbital level is coming down transitioned to twice daily dosing instead of 3 times daily dosing DVT: SCDs Charges/Coding Visit Charges Inpatient E&M: 74873 Subs Hosp L2
[2020-12-25] MEDS: Acetaminophen 325 MG Tablet 650 MG PO (15:10)
--- NOTE | 2020-12-25 17:17 | EKG12_ITS ---
Test Reason : Blood Pressure : / mmHG Vent. Rate : 149 BPM Atrial Rate : 166 BPM P-R Int : 000 ms QRS Dur : 082 ms QT Int : 270 ms P-R-T Axes : 000 -28 051 degrees QTc Int : 425 ms Atrial fibrillation Nonspecific T wave abnormality , probably digitalis effect Abnormal ECG When compared with ECG of 25-DEC-2020 17:20, MANUAL COMPARISON REQUIRED, DATA IS UNCONFIRMED Confirmed by LEIF ROGERS, LOYD ([id number]), editor newspaper ARSLAN GIVENS ([id number]) on 12/27/2020 12:29:38 P M Referred By: Confirmed By:BRADY YADAV MD
--- NOTE | 2020-12-25 17:32 | NURSING ---
VS were being taken and patient's HR was noted to be in the 150's on the monitor and via auscultation. Patient denies symptoms. States he feels fine. Denies cp, sob, etc. And EKG was done and showed aflutter, non-specific t wave abnormalities. Dr. Bruno was notified and will transfer patient to PCU. Another set of VS taken revleals a bp of 73/61. Dr. Bruno aware as well. x1 afternoon dose of lasix held.
--- NOTE | 2020-12-25 17:45 | NURSING ---
Report called to HUGH Cueva in ICU.
--- NOTE | 2020-12-25 17:50 | NURSING ---
Patient transferred to ICU with this RN and HUGH Neri.
[2020-12-25] MEDS: Norepinephrine 8 mg/250 mL 0.9% NS 9.4 MG CONT INF (18:20)
[2020-12-25] MEDS: 0.9% Normal Saline 1,000 ML 75 ML IV (18:30)
--- NOTE | 2020-12-25 18:51 | PCM.PN.BLA ---
Progress Note Yesterday afternoon he developed shortness of breath and was found to be hypoxic to the 70s and tachycardic. This was worked up with a CTA to the chest which was negative for a PE but he did have increased interstitial edema secondary to the IV fluids he was receiving secondary to his rhabdomyolysis, UTI and acute renal failure. He is unaware of any history of heart failure and the brother does not think he has a history of heart failure. He was started on IV Lasix 20 mg and he diuresed and his blood pressure improved and his oxygen requirements went from 5 L to 3 L overnight. This morning he was doing well and received another dose of IV Lasix. He is currently 3 L positive. Around 530 I was notified that he went into an abnormal rhythm with a heart rate to the 150s and 160s. He was still alert but was becoming hypotensive down into the 70s systolic. An EKG was obtained that showed a potentially abnormal sinus mechanism tachycardia. P waves were evident in the V1 lead. Cardiology was consulted and they agreed with my assessment on the EKG and that cardioversion would likely not be helpful. We transferred him to the ICU where he was started on peripheral Levophed to bolster his blood pressures and he was also started on a little bit of fluid out of the concern that he may have been over diuresed. Repeat EKG did show more clearly A. fib, therefore he was given a bolus of IV amiodarone and started on a heparin drip as well. If his blood pressures does not improve with these interventions he may need to be cardioverted Critical care time assessing patient and discussing with consultants and treatments about 45 minutes Procedures Hospitalists Procedures: 82821 Critial Care 1st Hr
[2020-12-25 19:05] LABS: International Normalized Ratio 1.3; Prothrombin Time (Protime)PT. 15.5 SECONDS (11.7-14.9)
[2020-12-25 19:06] LABS: Partial Thromboplast Time 51.8 Seconds (24.1-36.2)
[2020-12-25] MEDS: HEPARIN/D5w 25,000 UNITS 25,000 UNITS/250 ML IV.SOLN. 8 UNITS IV (20:57)
[2020-12-25] MEDS: Heparin Injection (Vial) 5,000 UNIT/ML VIAL 4000 UNIT IV (20:58)
[2020-12-25] MEDS: Atorvastatin Calcium 10 MG Tablet 5 MG PO (21:14)
[2020-12-26] VITALS (32 sets, daily range): BP systolic 87–112; BP diastolic 54–80; PULSE 86–165; RESP 14–28; TEMP 36.7–37.4; O2SAT 91–100
[2020-12-26 03:40] LABS: Absolute Lymphocyte Count 1.35 X10^3/uL (0.83-4.51); Absolute Neutrophil Count 9.4 X10^3/uL (2.0-7.7); Basophil# 0.05 X10^3/uL; Basophil% 0.4 % (0-1); Eosinophil# 0.16 X10^3/uL; Eosinophils% 1.3 % (0-5); Hematocrit 39.6 % (40-54); Hemoglobin 12.9 g/dL (13.0-16.5); Lymphocyte # 1.35 X10^3/ul (0.83-4.51); Lymphocyte % 11.2 % (19-41); Mean Corp Hgb Conc 32.6 g/dL (32-36); Mean Corpuscular Hgb 34.3 pg (27.0-32.0); Mean Corpuscular Volume 105.3 fL (80-94); Mean Platelet Vol. 10.5 fl (6.2-12.0); Monocyte# 1.05 X10^3/uL; Monocyte% 8.7 % (0-10); NRBC Flagged by Analyzer 0 % (0-5); Neutrophil # 9.35 X10^3/uL (2.7-7.7); Neutrophil % 77.2 % (47-70); Platelet Count 133 K/mm3 (150-450); RBC Distribution Width CV 14.5 % (11.6-14.6); RBC Distribution Width SD 56.2 fl (35.1-43.9); Red Blood Count 3.76 M/mm3 (4.6-6.2); White Blood Count 12.1 K/mm3 (4.4-11.0)
[2020-12-26 03:51] LABS: Anion Gap 5 (5-15); BUN 15 mg/dL (7-18); BUN/Creat Ratio 18.5 RATIO (10-20); Calcium,Total 8.2 mg/dL (8.5-10.1); Chloride 109 mmol/L (98-107); Creatinine, Serum 0.81 mg/dL (0.70-1.30); EST Glomerular Filtration Rate 100 mL/min (>60); Est Glom Filt Rate - Afr Amer 121 mL/min (>60); Estimated Creatinine Clearance 70.68 ml/min; Glucose 102 mg/dL (74-106); Potassium 3.6 mmol/L (3.5-5.1); Sodium Level 143 mmol/L (136-145)
[2020-12-26 03:58] LABS: Partial Thromboplast Time 125.8 Seconds (24.1-36.2)
--- NOTE | 2020-12-26 05:00 | ECHOCS_ITS ---
Reason For Study: AFib/Flutter Procedure This was a 2D Doppler, Color Flow transthoracic echocardiogram. The study was technically difficult. Contrast injection was performed. Exam performed portable in ICU/CCU. Left Ventricle Normal LV size. Left ventricular systolic function is normal. The estimated ejection fraction is 65 %. No evidence for diastolic dysfunction. No regional wall motion abnormalities noted. Right Ventricle Normal RV size. Normal systolic function. Atria Normal left atrium. Normal right atrium. No doppler evidence for ASD. Mitral Valve There is no mitral annular calcification. Normal mitral valve. Trivial mitral valve insufficiency. Tricuspid Valve Normal tricuspid valve. Mild tricuspid valve insufficiency. Right ventricular systolic pressure estimated to be 68 mmHg. Aortic Valve The aortic valve is not well visualized. Mild (1+) aortic valve insufficiency. Pulmonic Valve The pulmonic valve is not well visualized. Great Vessels Borderline enlarged aortic root. Pericardium/Pleural No pericardial effusion. Medication Diluted definity 3ml given slow IV push to enhance endocardial definition. MMode/2D Measurements & Calculations LVIDd: 4.0 cm IVSd: 0.83 cm Ao root diam: 3.9 cm LVIDs: 2.9 cm LVPWd: 0.84 cm FS: 28.4 % LAV(MOD-bp): 24.8 ml LA A4 area: 10.9 cm2 RA A4 area: 14.8 cm2 LAV(MOD-bp) Indexed: 14.6 ml/m2 LAV(MOD-sp2): 32.2 ml LAV(MOD-sp4): 19.1 ml Time Measurements MV dec time: 0.26 sec Doppler Measurements & Calculations MV E max kendall: 43.7 cm/sec Lat Peak E' Kendall: 6.2 cm/sec Med Peak E' Kendall: 4.8 cm/sec MV A max kendall: 76.3 cm/sec E/E' lat: 7.1 E/E' med: 9.2 MV E/A: 0.57 MV V2 max: 75.9 cm/sec MV P1/2t max kendall: 63.1 cm/sec Ao V2 max: 102.8 cm/sec MV max P.3 mmHg MV P1/2t: 73.0 msec Ao max P.2 mmHg MV V2 mean: 39.6 cm/sec MV dec slope: 253.4 cm/sec2 MV mean P.77 mmHg MV V2 VTI: 18.6 cm MVA(P1/2t): 3.0 cm2 AI max kendall: 360.2 cm/sec LV V1 max: 84.8 cm/sec PA V2 max: 69.9 cm/sec AI max P.9 mmHg LV V1 max P.9 mmHg AI dec slope: 313.6 cm/sec2 AI P1/2t: 336.4 msec TR max kendall: 402.9 cm/sec TR max P.9 mmHg ECHO/Echo Complete W/ Contrast Interpretation Summary The study was technically difficult. Contrast injection was performed. Left ventricular systolic function is normal. The estimated ejection fraction is 65 %. Trivial mitral valve insufficiency. Mild tricuspid valve insufficiency. Mild (1+) aortic valve insufficiency. Borderline enlarged aortic root. Right ventricular systolic pressure estimated to be 68 mmHg c/w pulmonary hyper tension. No evidence for diastolic dysfunction. Ordering Physician: Hilary Stanley Referring Physician: Stephanie Tejada Performed By: Gigi Clark RCS
--- NOTE | 2020-12-26 05:00 | EKG12_ITS ---
Test Reason : TACHY Blood Pressure : / mmHG Vent. Rate : 122 BPM Atrial Rate : 122 BPM P-R Int : 136 ms QRS Dur : 078 ms QT Int : 282 ms P-R-T Axes : 060 -20 064 degrees QTc Int : 401 ms Sinus tachycardia Otherwise normal ECG When compared with ECG of 23-DEC-2020 09:01, MANUAL COMPARISON REQUIRED, DATA IS UNCONFIRMED Confirmed by LEIF ROGERS, LOYD ([id number]), primer expeditor and drier ARSLAN GIVENS ([id number]) on 12/27/2020 12:30:38 P M Referred By: NIKHIL Confirmed By:BRADY YADAV MD
[2020-12-26] MEDS: 0.9% Saline Lock 10 ML Syringe IV (05:26)
[2020-12-26] MEDS: Amiodarone 200 MG Tablet PO ×2 (05:31→21:11)
--- NOTE | 2020-12-26 06:48 | EX.PCM.CONCC ---
Assessment & Plan Assessment/Plan (1) Sepsis: PLAN: RECOMMENDATIONS: 1. Continue medical management of atrial fibrillation per cardiology recommendations. 2. Wean supplemental oxygen to maintain saturations at or above 90%. 3. Encourage incentive spirometer use and mobilize patient as tolerated. 4. Continue antimicrobials. 5. The patient is medically stable for transfer out of the intensive care unit. 6. Will sign off from a critical care perspective. IMPRESSIONS: 1. Hypotension The patient was initially transferred to the ICU with hypotension, requiring vasopressor support. I do suspect that his hypotension was likely secondary to intravascular volume depletion in the setting of diuresis coupled with an arrhythmia genic etiology in the setting of atrial fibrillation with RVR. The patient did receive some some supplemental IV fluid hydration along with medical management of his atrial fibrillation. Since that time, his hemodynamic status has stabilized. The patient has been weaned off of vasopressor support. He remains hemodynamically stable. 2. Atrial fibrillation with RVR The patient is since converted back to normal sinus rhythm. Echocardiogram is pending. Continue medical management per cardiology recommendations. 3. Acute kidney injury Potentially related to rhabdomyolysis. IV fluids were already initiated. Continue to monitor urine output. No current indication for renal replacement therapy. 4. History of neurofibromatosis and epilepsy Complicates care, management, recovery and prognosis. Continue home medications as indicated. This note was generated with [employer] dictation software. It may contain incorrect words, spelling, and punctuation that were not noted in checking the note before signing. HPI Consult Data Date of Consult: 12/26/20 HPI Narrative Reason for Consultation: Sinus tachycardia, UTI, rhabdomyolysis HPI Narrative: The patient is a 70-year-old male, with a history as outlined below, who initially presented to the emergency department on December 23 after being found down, in the setting of progressive generalized weakness. The patient had apparently experienced several falls in the days leading up to his hospitalization. He does have a history of neurofibromatosis. On presentation to the emergency department, the patient was initially noted to be afebrile and hemodynamically stable. He was, nevertheless tachycardic and tachypneic. Initial laboratory evaluation revealed an elevated white blood cell count to 21,000. Coagulation profile revealed an INR of 1.3. Chemistry profile was notable for a bicarbonate of 17, anion gap of 18, BUN of 80 and creatinine of 2.36. Lactate was within normal limits. AST and ALT were increased to 213 and 86, respectively. Total CK was elevated to 4000. Urine analysis was positive for leukocyte esterase and 2+ urine bacteria. Phenobarbital level was elevated at 51. Diffuse interstitial lung disease was noted on chest imaging. The patient was initially admitted to the hospital, where he was placed on the medical surgical floor for management of sepsis secondary to UTI. On December 25, the patient developed shortness of breath and was found to be hypoxemic. CTA showed no evidence for PE. The patient also developed atrial fibrillation with RVR and was therefore transitioned to the medical intensive care unit, where he received IV amiodarone and had to be started on vasopressor support. The patient remains on supplemental IV fluids, a continuous heparin infusion and antimicrobials. As of early this morning, the patient was able to be weaned off of Levophed completely. [facility] Medical History (Updated 12/26/20 @ 09:[address] Bernabe Lemon MD) Atrial fibrillation and flutter High cholesterol Migraines Neurofibromatosis Neurofibromatosis Seizures Home Medications ethosuximide [Zarontin] 250 mg PO BID 03/09/13 [History Last Taken 12/21/20] phenobarbital 32.4 mg PO TID 03/09/13 [History Last Taken 12/20/20] phenytoin sodium extended 100 mg PO TID 03/09/13 [History Last Taken 12/21/20] primidone 250 mg PO BID 03/09/13 [History Last Taken 12/21/20] fluticasone propionate [Flonase] 1 spray INTRANASAL DAILY 12/23/20 [History Last Taken 12/21/20] latanoprost 1 drp EACH EYE DAILY 12/23/20 [History Last Taken 12/21/20] simvastatin 10 mg PO QHS 12/23/20 [History Last Taken 12/20/20] vit D3-folic [id number] 1 tab PO DAILY 12/23/20 [History Last Taken 12/21/20] Allergy/AdvReac Type Severity Reaction Status Date / Time No Known Allergies Allergy Verified 12/23/20 07:49 Family History (Updated 12/23/20 @ 18:[address] Chase Bruno MD) Other CVA (cerebral vascular accident) Surgical History no surgical history Social History (Updated 12/23/20 @ 07:[address] Claude Wilkes DO) Smoking Status: Former smoker substance use type: does not use ROS Constitutional Constitutional: Reports fatigue and weakness Eyes Eyes: Denies blurry vision or change in vision ENT HEENT: Denies headache(s), hoarseness or loss taste/smell Cardiovascular Cardiovascular: Reports dyspnea Respiratory/Chest Respiratory/Chest: Reports dyspnea; Denies cough Gastrointestinal Gastrointestinal: Denies abdominal pain, diarrhea, nausea or vomiting Genitourinary Genitourinary: Denies difficulty urinating Musculoskeletal Musculoskeletal: Denies arthralgias Integumentary Integumentary: Reports skin ulcer Neurologic Neurologic: Denies abnormal gait or abnormal speech Psychiatric Psychiatric: Denies anxiety or depression Endocrine Endocrinology: Reports fatigue Hematologic/Lymphatic Hematologic/Lymphatic: Denies easy bleeding or easy bruising Physical Exam Const alert and no apparent distress General Appearance: cooperative HEENT normocephalic and head/scalp atraumatic Eyes PERRL, EOMs intact bilaterally and conjunctivae normal Neck supple General: trachea midline Resp Auscultation: diminished lung sounds Cardio regular rate and regular rhythm GI normal to inspection, nondistended, normoactive bowel sounds Extremity no clubbing, cyanosis or edema Skin Skin Narrative: Multiple dermatofibroma scattered throughout body. Neuro moves all extremities and no focal motor deficits Psych Mood & Affect: flat affect Lab / Micro Data Result Diagrams: 12/26/20 03:30 12/26/20 03:30 Labs: Laboratory Results - last 24 hr 12/25/20 06:00: Sodium 147 H, Potassium 3.5, Chloride 116 H, Carbon Dioxide 26.0, Anion Gap 5, BUN 18, Creatinine 0.75, Estim Creat Clear Calc 57.25, Est GFR (MDRD) Af Amer 133, Est GFR (MDRD) Non-Af 110, BUN/Creatinine Ratio 24.1 H, Glucose 93, Calcium 8.2 L, Total Bilirubin 0.30, AST 82 H, ALT 49, Alkaline Phosphatase 106, Total Creatine Kinase 1025 H, Total Protein 6.0 L, Albumin 2.0 L, Globulin 4.0, Albumin/Globulin Ratio 0.5 L 12/25/20 18:45: PT 15.5 H, INR 1.3, APTT 51.8 H 12/26/20 03:30: Sodium 143, Potassium 3.6, Chloride 109 H, Carbon Dioxide 29.0, Anion Gap 5, BUN 15, Creatinine 0.81, Estim Creat Clear Calc 70.68, Est GFR (MDRD) Af Amer 121, Est GFR (MDRD) Non-Af 100, BUN/Creatinine Ratio 18.5, Glucose 102, Calcium 8.2 L 12/26/20 03:30: APTT 125.8 H* 12/26/20 03:30: WBC 12.1 H, RBC 3.76 L, Hgb 12.9 L, Hct 39.6 L, MCV 105.3 H, MCH 34.3 H, MCHC 32.6, RDW Std Deviation 56.2 H, RDW Coeff of Sully 14.5, Plt Count 133 L, MPV 10.5, Immature Gran % (Auto) 1.200 H, Neut % (Auto) 77.2 H, Lymph % (Auto) 11.2 L, [place] % (Auto) 8.7, Eos % (Auto) 1.3, Baso % (Auto) 0.4, Absolute Neuts (auto) 9.4 H, Absolute Lymphs (auto) 1.35, Nucleated RBC % 0 Micro: Microbiology 12/23/20 08:10 Blood Culture (Wb) - Anticubital Left Bacteria Detection (PCR) - Final Coag Negative Staph 12/23/20 08:10 Blood Culture (Wb) - Anticubital Left Blood Culture - Preliminary Coag Negative Staph 12/23/20 08:02 Urine Catheter - Whitaker Urine Culture - Preliminary Gram negative danilo 12/23/20 08:59 Blood Culture (Wb) - Anticubital Left Blood Culture - Preliminary No growth in 48 hours. Charges/Coding Visit Charges Inpatient E&M: 99968 Init Hosp L3
[2020-12-26 07:21] LABS: Troponin-I HS 37 pg/mL (3.0-78.0)
--- NOTE | 2020-12-26 07:40 | PCM.PN.HOSP ---
Subjective Subjective Patient afebrile. Mild short of breath blood pressure on lower side and higher 90s. Respiratory rate in 20 to 24/min. Objective Data Objective Data Vital Signs: Vital Signs Temp Pulse Resp BP Pulse Ox 98.9 F 94 14 93/56 L 99 12/26/20 00:00 12/26/20 07:15 12/26/20 07:00 12/26/20 07:15 12/26/20 07:00 Oxygen Flow Rate (L/min) 3 Oxygen Delivery Method Nasal Cannula Weight: 133 lb 6.075 oz Body Mass Index (BMI) 20.0 Intake & Output: Intake and Output for Last 24 Hours 12/24/20 12/25/20 12/26/20 23:59 23:59 23:59 Intake Total 3021.25 / 3221.25 1642.39 / 1804.97 771.15 / 771.15 Output Total 1625 / 2500 1850 / 1850 200 / 200 Balance 1396.25 / 721.25 -207.61 / -45.03 571.15 / 571.15 Lab / Micro Data Result Diagrams: 12/26/20 03:30 12/26/20 03:30 Labs: Laboratory Results - last 24 hr 12/25/20 18:45: PT 15.5 H, INR 1.3, APTT 51.8 H 12/26/20 03:30: Sodium 143, Potassium 3.6, Chloride 109 H, Carbon Dioxide 29.0, Anion Gap 5, BUN 15, Creatinine 0.81, Estim Creat Clear Calc 70.68, Est GFR (MDRD) Af Amer 121, Est GFR (MDRD) Non-Af 100, BUN/Creatinine Ratio 18.5, Glucose 102, Calcium 8.2 L 12/26/20 03:30: APTT 125.8 H* 12/26/20 03:30: WBC 12.1 H, RBC 3.76 L, Hgb 12.9 L, Hct 39.6 L, MCV 105.3 H, MCH 34.3 H, MCHC 32.6, RDW Std Deviation 56.2 H, RDW Coeff of Sully 14.5, Plt Count 133 L, MPV 10.5, Immature Gran % (Auto) 1.200 H, Neut % (Auto) 77.2 H, Lymph % (Auto) 11.2 L, [place] % (Auto) 8.7, Eos % (Auto) 1.3, Baso % (Auto) 0.4, Absolute Neuts (auto) 9.4 H, Absolute Lymphs (auto) 1.35, Nucleated RBC % 0 12/26/20 03:30: Troponin I High Sens 37 Micro: Microbiology 12/23/20 08:10 Blood Culture (Wb) - Anticubital Left Bacteria Detection (PCR) - Final Coag Negative Staph 12/23/20 08:10 Blood Culture (Wb) - Anticubital Left Blood Culture - Preliminary Coag Negative Staph 12/23/20 08:02 Urine Catheter - Whitaker Urine Culture - Preliminary Gram negative danilo 12/23/20 08:59 Blood Culture (Wb) - Anticubital Left Blood Culture - Preliminary No growth in 48 hours. Physical Exam Narrative General: Awake, oriented x3, Cooperative HEENT: Atraumatic, PERRLA, EOMI, Normocephalic Oral: No Gingival or Mucosal Lesions/ Ulcerations Neck: Supple, No JVD, Negative Carotid Bruits Lungs: Air entry diminished in bilateral lung bases. No crepitation/rhonchi Cardiovascular: Regular rate, Regular Rhythm, Normal S1, Normal S2, No murmurs Abdomen: Bowel Sounds Present, Soft, Non Tender, Non-Distended : Whitaker catheter. Dark urine. No renal angle tenderness. No suprapubic tenderness. Extremities: No edema, Capillary Refill Less than 3 Seconds Skin: Multiple subcutaneous nodules all over the body. Musculoskeletal: No Tenderness to Palpation of Joints or Extremities Neurological: Cranial nerves II-XII grossly intact, weakness of both lower extremity muscles at knee and hip joint. Psych/Mental Status: Flat affect. Assessment & Plan Assessment/Plan (1) Rhabdomyolysis: (2) Acute UTI: (3) Acute kidney injury: (4) Sepsis: (5) Acute respiratory failure with hypoxia: (6) Pulmonary edema: PLAN: 1. Acute kidney injury, most probably from rhabdomyolysis and septic shock mostly due to UTI: Patient is admitted in ICU. Urine culture shows E. coli 80,000-100,000 colonies. Blood culture commonly is negative staph. Urine output is low, oliguria. On IV ceftriaxone. Patient was on norepinephrine drip last night currently off. 2. Acute hypoxic respiratory failure secondary to pulmonary edema: CT angiogram negative for PE. Since patient had fluid overload and Lasix was given. PT OT and speech evaluation. 3. Paroxysmal A. fib with RVR: On IV amiodarone and heparin drip. Patient history of frequent fall with debilitation not good candidate for long-term oral systemic anticoagulant therapy. 4. Neurofibromatosis with history of epilepsy: Phenytoin level was normal. Patient on ethosuximide, phenobarbital, primidone and Dilantin. Phenobarbital level is elevated at 44.3. Phenytoin level normal DVT: On IV heparin drip Charges/Coding Visit Charges Inpatient E&M: 67612 Subs Hosp L3
[2020-12-26] MEDS: Primidone 250 MG Tablet PO ×2 (08:42→21:11)
[2020-12-26] MEDS: Phenytoin Na 100 MG Capsule PO ×3 (08:43→18:51)
[2020-12-26] MEDS: ETHOSUXIMIDE 250 MG CAPSULE PO ×2 (08:44→21:12)
[2020-12-26] MEDS: Ceftriaxone 1 GM/50 ML BAG IV (08:44)
--- NOTE | 2020-12-26 09:01 | PCM.CONS.C ---
Assessment & Plan Assessment/Plan (1) Atrial fibrillation and flutter: PLAN: The patient appears to have had paroxysmal atrial fibrillation/flutter. At the present time he is in sinus rhythm. He is pending further cardiovascular evaluation with a transthoracic echocardiogram. He is continuing medical therapy with IV amiodarone which has been converted to oral amiodarone beginning this day (partially secondary to loss of his IV access and difficulty regaining IV access) He is continuing IV heparin at the moment. However, based upon his debilitated state, frequent falls, etc., he may not be an ideal candidate for long-term oral systemic anticoagulant therapy. (2) Rhabdomyolysis: PLAN: The patient was found to have findings compatible with rhabdomyolysis. He is continuing evaluation care per internal medicine and pulmonology/critical care medicine. (3) Sepsis: PLAN: The patient was thought to have sepsis secondary to UTI. He was transiently on IV vasopressor support. That has been placed on hold at this time. He will continue evaluation care per internal medicine and pulmonology/critical care medicine. (4) Acute UTI: PLAN: The patient is undergoing evaluation care for his UTI. (5) Acute kidney injury: PLAN: The patient was thought to have acute kidney injury secondary to his acute noncardiovascular events. His renal function was noted to be improving. He will continue evaluation and care. (6) Neurofibromatosis: PLAN: The patient has a longstanding history of neurofibromatosis. He states his main concern, based upon this diagnosis, is his weakness and frequent falls. Again his weakness and frequent falls does make it challenging for him to be considered a candidate for long-term oral systemic anticoagulant therapy as the risk-benefit ratio may not be in his favor. Addt'l Comments The patient's case was discussed and reviewed with the patient, Dr. Stanley, and Dr. Mckee. This note was generated using a voice recognition system and there may be incorrect words, spelling or punctuation that were not noted when reviewing the office note prior to saving. HPI Consult Data Date of Consult: 12/26/20 HPI Narrative HPI Narrative: SABA DOMINGUEZ, is a 70-year-old white male who presents for cardiovascular consultation based upon concerns of atrial fibrillation superimposed upon findings thought compatible with rhabdomyolysis superimposed upon a history of neurofibromatosis. Based upon the patient's history and the [facility] medical records available for review it appears the patient has had recent falling episodes. He was able to summon assistance and was brought to [facility] for further evaluation. There were concerns of objective findings compatible with rhabdomyolysis as well as concerns of findings of sepsis related to an underlying UTI. He was placed in the ICU for further evaluation and care. During his ICU stay he developed atrial flutter/fibrillation. He was treated medically with IV amiodarone therapy and IV heparin therapy. He has subsequent been noted by ECG this day 2 of return to sinus rhythm. During this time he does not recall any ongoing chest discomfort or difficulty breathing. He does not recall any obvious palpitations or rapid heart rate sensations. He does not recall any episodes of syncope. He did have abnormal CPK levels compatible with his rhabdomyolysis which have improved. His troponin I level was negative. His creatinine level was increased and has subsequently been decreasing. His ECG demonstrated throughout his stay from sinus rhythm atrial fibrillation/flutter and then back to sinus rhythm a nonspecific T wave abnormality. He states his main concerns are feeling weak and his multiple falling episodes. [facility] Medical History (Updated 12/26/20 @ 09:[address] Bernabe Lemon MD) Atrial fibrillation and flutter High cholesterol Migraines Neurofibromatosis Neurofibromatosis Seizures Home Medications ethosuximide [Zarontin] 250 mg PO BID 03/09/13 [History Last Taken 12/21/20] phenobarbital 32.4 mg PO TID 03/09/13 [History Last Taken 12/20/20] phenytoin sodium extended 100 mg PO TID 03/09/13 [History Last Taken 12/21/20] primidone 250 mg PO BID 03/09/13 [History Last Taken 12/21/20] fluticasone propionate [Flonase] 1 spray INTRANASAL DAILY 12/23/20 [History Last Taken 12/21/20] latanoprost 1 drp EACH EYE DAILY 12/23/20 [History Last Taken 12/21/20] simvastatin 10 mg PO QHS 12/23/20 [History Last Taken 12/20/20] vit D3-folic [id number] 1 tab PO DAILY 12/23/20 [History Last Taken 12/21/20] Allergy/AdvReac Type Severity Reaction Status Date / Time No Known Allergies Allergy Verified 12/23/20 07:49 Family History (Updated 10/29/21 @ 18:[address] Chase Bruno MD) Other CVA (cerebral vascular accident) Surgical History no surgical history Social History (Updated 12/23/20 @ 07:[address] Claude Wilkes DO) Smoking Status: Former smoker substance use type: does not use ROS Constitutional Constitutional: Reports weakness Eyes Eyes: Reports as per HPI ENT HEENT: Reports as per HPI Cardiovascular Cardiovascular: Reports weakness in extremities Respiratory/Chest Respiratory/Chest: Reports as per HPI Gastrointestinal Gastrointestinal: Reports as per HPI Genitourinary Genitourinary: Reports as per HPI Musculoskeletal Musculoskeletal: Reports muscle weakness Integumentary Integumentary: Reports other Details: Endings compatible with neurofibromatosis Neurologic Neurologic: Reports as per HPI Psychiatric Psychiatric: Reports as per HPI Physical Exam Const alert and oriented x3 Orientation / Consciousness: awake HEENT normocephalic and head/scalp atraumatic Eyes PERRL and EOMs intact bilaterally Neck full ROM, supple and no JVD Resp clear to auscultation bilaterally Cardio regular rate, regular rhythm, S1 normal heart sound and S2 normal heart sound GI normal to inspection, nondistended, normoactive bowel sounds Extremity no pedal edema Skin Skin Narrative: Dermatologic findings compatible with neurofibromatosis Neuro moves all extremities Psych mental status grossly normal Risk Stratification Risk Stratification Applicable: No Procedure Criteria Type of Procedure Procedure Type: Elective Elective Risks - COVID COVID Risk Discussion: The surgeon/proceduralist and patient have discussed in detail the risk of exposure to and/or potential harm posed by the COVID-19 virus with having a surgery/procedure at this time versus the risk of delaying the surgery/procedure. It is not possible to know either the risk of delaying the surgery or procedure or chance of getting an infection with perfect accuracy, but a joint decision was made between the patient and the surgeon/proceduralist to proceed at this time with the scheduled surgery/procedure as indicated on the consent form. Objective Data Vital Signs: Vital Signs Temp Pulse Resp BP Pulse Ox 98.9 F 94 14 93/56 L 99 12/26/20 00:00 12/26/20 07:15 12/26/20 07:00 12/26/20 07:15 12/26/20 07:00 Oxygen Flow Rate (L/min) 3 Oxygen Delivery Method Nasal Cannula Weight: 133 lb 6.075 oz Body Mass Index (BMI) 20.0 Intake & Output: Intake and Output for Last 24 Hours 12/24/20 12/25/20 12/26/20 23:59 23:59 23:59 Intake Total 3021.25 / 3221.25 1642.39 / 1804.97 771.15 / 771.15 Output Total 1625 / 2500 1850 / 1850 200 / 200 Balance 1396.25 / 721.25 -207.61 / -45.03 571.15 / 571.15 Lab / Micro Data Result Diagrams: 12/26/20 03:30 12/26/20 03:30 Labs: Laboratory Results - last 24 hr 12/25/20 18:45: PT 15.5 H, INR 1.3, APTT 51.8 H 12/26/20 03:30: Sodium 143, Potassium 3.6, Chloride 109 H, Carbon Dioxide 29.0, Anion Gap 5, BUN 15, Creatinine 0.81, Estim Creat Clear Calc 70.68, Est GFR (MDRD) Af Amer 121, Est GFR (MDRD) Non-Af 100, BUN/Creatinine Ratio 18.5, Glucose 102, Calcium 8.2 L 12/26/20 03:30: APTT 125.8 H* 12/26/20 03:30: WBC 12.1 H, RBC 3.76 L, Hgb 12.9 L, Hct 39.6 L, MCV 105.3 H, MCH 34.3 H, MCHC 32.6, RDW Std Deviation 56.2 H, RDW Coeff of Sully 14.5, Plt Count 133 L, MPV 10.5, Immature Gran % (Auto) 1.200 H, Neut % (Auto) 77.2 H, Lymph % (Auto) 11.2 L, [place] % (Auto) 8.7, Eos % (Auto) 1.3, Baso % (Auto) 0.4, Absolute Neuts (auto) 9.4 H, Absolute Lymphs (auto) 1.35, Nucleated RBC % 0 12/26/20 03:30: Troponin I High Sens 37 Micro: Microbiology 12/23/20 08:02 Urine Catheter - Whitaker Urine Culture - Final Escherichia coli 12/23/20 08:10 Blood Culture (Wb) - Anticubital Left Bacteria Detection (PCR) - Final Coag Negative Staph 12/23/20 08:10 Blood Culture (Wb) - Anticubital Left Blood Culture - Preliminary Coag Negative Staph 12/23/20 08:59 Blood Culture (Wb) - Anticubital Left Blood Culture - Preliminary No growth in 48 hours. Cardiology Labs/Tests 12/25/20 18:45: PT 15.5 H, INR 1.3, APTT 51.8 H 12/26/20 03:30: Sodium 143, Potassium 3.6, Chloride 109 H, Carbon Dioxide 29.0, Anion Gap 5, BUN 15, Creatinine 0.81, Est GFR (MDRD) Af Amer 121, Est GFR (MDRD) Non-Af 100, BUN/Creatinine Ratio 18.5, Glucose 102, Calcium 8.2 L 12/26/20 03:30: APTT 125.8 H* 12/26/20 03:30: WBC 12.1 H, RBC 3.76 L, Hgb 12.9 L, Hct 39.6 L, MCV 105.3 H, MCH 34.3 H, MCHC 32.6, Plt Count 133 L, MPV 10.5, Immature Gran % (Auto) 1.200 H, Neut % (Auto) 77.2 H, Lymph % (Auto) 11.2 L, [place] % (Auto) 8.7, Eos % (Auto) 1.3, Baso % (Auto) 0.4, Absolute Neuts (auto) 9.4 H, Nucleated RBC % 0 Rhythm: Sinus rhythm EKG: As noted above ECHO: Pending
[2020-12-26 09:11] LABS: BNP,B-Type NATRIURETIC PEPTIDE 223.7 pg/mL (0-100)
[2020-12-26] MEDS: 0.9% Normal Saline 1,000 ML 75 ML IV (09:13)
[2020-12-26] MEDS: Lidocaine 5% Patch 1 PATCH TOPICAL (10:04)
[2020-12-26] MEDS: Phenobarbital 32.4 MG Tablet PO ×2 (10:07→21:14)
--- NOTE | 2020-12-26 11:09 | CASEMGMT ---
Addendum entered by Edith Mcgee 12/26/20 14:41: SW spoke w/Justine at [facility], confirmed they do not take pt's insurance. SW spoke w/pt and pt's brother, confirmed with them that [facility] does not take pt's insurance. SW explained will start the referral process to the other facilities on the list he made once pt is closer to getting out of the ICU. Pt's brother states understanding. SW will continue to follow. GRADY Hammer Addendum entered by Edith Mcgee 12/26/20 13:10: Pt's brother Shayne is here in the hospital, SW spoke w/Shayne and pt in room. We discussed LW/POA forms, they are on the window sill but pt still does not feel well enough to sign the forms. Shayne gave SW list of nursing homes they would like to consider. Their first choice would be the [facility] as pt's sister in law's sister works there. They may not be in network however, SW explained will call to find out if they truly do not take pt's insurance. If they do not take pt's insurance, the next choices are 1. [facility]. [facility] [address] [facility]. [facility]. SW called [facility], SW attempted to leave a message in admissions, but the voicemail is full. SW will try again later. GRADY Hammer Original Note: RAMU called pt's brother, message left. SW will continue to follow for support/discharge needs. GRADY Hammer
[2020-12-26 13:39] LABS: Partial Thromboplast Time 85.6 Seconds (24.1-36.2)
[2020-12-26] MEDS: Lactated Ringers 500 ML 999 ML IV (14:21)
[2020-12-26] MEDS: Acetaminophen 325 MG Tablet 650 MG PO (16:27)
--- NOTE | 2020-12-26 20:00 | NURSING ---
Pt had PTT due at 1900. Lab notified this RN they were unable to draw blood after multiple attempts. This RN notified battery recharger. thread inspector notified joint supervisor on shift. Both battery recharger and joint supervisor attempted to draw PTT and unsuccessful.
[2020-12-26] MEDS: Atorvastatin Calcium 10 MG Tablet 5 MG PO (21:10)
[2020-12-26] MEDS: 0.45% Normal Saline 1,000 ML 60 ML IV (21:14)
[2020-12-27] VITALS (12 sets, daily range): BP systolic 92–121; BP diastolic 60–69; PULSE 83–103; RESP 16–20; TEMP 36.6–37.3; O2SAT 94–97
[2020-12-27 01:49] LABS: Partial Thromboplast Time 51.7 Seconds (24.1-36.2)
--- NOTE | 2020-12-27 04:40 | EKG12_ITS ---
Test Reason : AM EKG Blood Pressure : / mmHG Vent. Rate : 094 BPM Atrial Rate : 094 BPM P-R Int : 136 ms QRS Dur : 084 ms QT Int : 350 ms P-R-T Axes : 049 014 037 degrees QTc Int : 437 ms Sinus rhythm with Premature atrial complexes Low voltage QRS (Limb Leads) Confirmed by SANDIE ROGERS, LAWANDA ([id number]), state editor ARSLAN GIVENS ([id number]) on 12/28/2020 8:54:04 AM Referred By: JONATHON Confirmed By:LAWANDA HOOPER MD
--- NOTE | 2020-12-27 05:55 | EKG12_ITS ---
Test Reason : TACHYCARDIA Blood Pressure : / mmHG Vent. Rate : 163 BPM Atrial Rate : 326 BPM P-R Int : 000 ms QRS Dur : 078 ms QT Int : 216 ms P-R-T Axes : 242 -39 094 degrees QTc Int : 355 ms Atrial flutter with variable A-V block with premature ventricular or aberrantly conducted complexes Left axis deviation Nonspecific ST and T wave abnormality Abnormal ECG When compared with ECG of 24-DEC-2020 13:27, MANUAL COMPARISON REQUIRED, DATA IS UNCONFIRMED Confirmed by LEIF ROGERS, LOYD ([id number]), website/blog editor ARSLAN GIVENS ([id number]) on 12/27/2020 12:29:54 P M Referred By: NIKHIL Confirmed By:BRAYD YADAV MD
--- NOTE | 2020-12-27 08:12 | PN.HOSP_ITS ---
Subjective Subjective No acute issues overnight. Patient still mild short of breath on 4 L of oxygen. 2D echo was done. Objective Data Objective Data Vital Signs: Vital Signs Temp Pulse Resp BP Pulse Ox 98.7 F 94 20 H 99/62 96 12/27/20 04:30 12/27/20 07:06 12/27/20 04:30 12/27/20 04:30 12/27/20 04:30 Oxygen Flow Rate (L/min) 4 Oxygen Delivery Method Nasal Cannula Weight: 137 lb 9.095 oz Body Mass Index (BMI) 20.0 Intake & Output: Intake and Output for Last 24 Hours 12/25/20 12/26/20 12/27/20 23:59 23:59 23:59 Intake Total 1642.39 / 1804.97 2540.15 / 2600.15 106.13 / 106.13 Output Total 1850 / 1850 205 / 455 325 / 325 Balance -207.61 / -45.03 2335.15 / 2145.15 -218.87 / -218.87 Lab / Micro Data Result Diagrams: 12/27/20 07:53 12/27/20 07:53 Labs: Laboratory Results - last 24 hr 12/26/20 03:30: B-Natriuretic Peptide 223.7 H 12/26/20 13:05: APTT 85.6 H 12/27/20 01:30: APTT 51.7 H Micro: Microbiology 12/23/20 08:02 Urine Catheter - Whitaker Urine Culture - Final Escherichia coli 12/23/20 08:10 Blood Culture (Wb) - Anticubital Left Bacteria Detection (PCR) - Final Coag Negative Staph 12/23/20 08:10 Blood Culture (Wb) - Anticubital Left Blood Culture - Preliminary Coag Negative Staph 12/23/20 08:59 Blood Culture (Wb) - Anticubital Left Blood Culture - Preliminary No growth in 48 hours. Radiography Diagnostic Testing: Radiology Impression Echocardiogram 12/26/20 05:00 Interpretation Summary The study was technically difficult. Contrast injection was performed. Left ventricular systolic function is normal. The estimated ejection fraction is 65 %. Trivial mitral valve insufficiency. Mild tricuspid valve insufficiency. Mild (1+) aortic valve insufficiency. Borderline enlarged aortic root. Right ventricular systolic pressure estimated to be 68 mmHg c/w pulmonary hypertension. No evidence for diastolic dysfunction. Ordering Physician: Hilary Stanley Referring Physician: Stephanie Tejada Performed By: Gigi Clark RCS Physical Exam Narrative General: Awake, oriented x3, Cooperative HEENT: Atraumatic, PERRLA, EOMI, Normocephalic Oral: No Gingival or Mucosal Lesions/ Ulcerations Neck: Supple, No JVD, Negative Carotid Bruits Lungs: Air entry diminished in bilateral lung bases. No crepitation/rhonchi Cardiovascular: Regular rate, Regular Rhythm, Normal S1, P2 loud, No murmurs Abdomen: Bowel Sounds Present, Soft, Non Tender, Non-Distended : Whitaker catheter. Dark urine. No renal angle tenderness. No suprapubic tenderness. Extremities: No edema, Capillary Refill Less than 3 Seconds Skin: Multiple subcutaneous nodules all over the body. Musculoskeletal: No Tenderness to Palpation of Joints or Extremities Neurological: Cranial nerves II-XII grossly intact, weakness of both lower extremity muscles at knee and hip joint. Psych/Mental Status: Flat affect. Assessment & Plan Assessment/Plan (1) Rhabdomyolysis: (2) Acute UTI: (3) Acute kidney injury: (4) Sepsis: (5) Acute respiratory failure with hypoxia: (6) Pulmonary edema: PLAN: 1. Acute kidney injury, most probably from rhabdomyolysis and septic shock mostly due to UTI: Patient is admitted in ICU. Urine culture shows E. coli 80,000-100,000 colonies. Blood culture coagulase negative staph. Urine output is low, oliguria. On IV ceftriaxone. Patient was on norepinephrine drip last night currently off. 12/27: Patient was transferred to PCU on 12/26. No fever. Patient has coagulase- negative staph, skin contamination. Urine culture also not in pathology cringe but since patient has septic shock he is on ceftriaxone. 2. Acute hypoxic respiratory failure secondary to pulmonary edema with severe pulmonary hypertension: CT angiogram negative for PE. Since patient had fluid overload and Lasix was given. PT OT and speech evaluation. 2D echo was noted and shows RVSP of 62 mainly consistent with severe pulmonary hypertension. Mild TR and AR. 3. Paroxysmal A. fib with RVR: On IV amiodarone and heparin drip. Patient history of frequent fall with debilitation not good candidate for long-term oral systemic anticoagulant therapy. 4. Neurofibromatosis with history of epilepsy: Phenytoin level was normal. Pa tient on ethosuximide, phenobarbital, primidone and Dilantin. Phenobarbital level is elevated at 44.3. Phenytoin level normal DVT: On IV heparin drip Charges/Coding Visit Charges Inpatient E&M: 94154 Subs Hosp L2
[2020-12-27 08:21] LABS: Hematocrit 34.2 % (40-54); Hemoglobin 11.2 g/dL (13.0-16.5); Mean Corp Hgb Conc 32.7 g/dL (32-36); Mean Corpuscular Hgb 33.9 pg (27.0-32.0); Mean Corpuscular Volume 103.6 fL (80-94); Mean Platelet Vol. 10.9 fl (6.2-12.0); Platelet Count 120 K/mm3 (150-450); RBC Distribution Width CV 14.2 % (11.6-14.6); RBC Distribution Width SD 54.2 fl (35.1-43.9); White Blood Count 12.1 K/mm3 (4.4-11.0)
[2020-12-27 08:34] LABS: International Normalized Ratio 1.4; Prothrombin Time (Protime)PT. 16.5 SECONDS (11.7-14.9)
--- NOTE | 2020-12-27 08:34 | PN.CARD_ITS ---
Subjective Subjective The patient is awake and alert. He denies ongoing chest discomfort or difficulty breathing at this time. He has not sensed any palpitations or rapid heart rates. Objective Data Vital Signs: Vital Signs Temp Pulse Resp BP Pulse Ox 98.7 F 94 20 H 99/62 96 12/27/20 04:30 12/27/20 07:06 12/27/20 04:30 12/27/20 04:30 12/27/20 04:30 Oxygen Flow Rate (L/min) 4 Oxygen Delivery Method Nasal Cannula Weight: 137 lb 9.095 oz Body Mass Index (BMI) 20.0 Intake & Output: Intake and Output for Last 24 Hours 12/25/20 12/26/20 12/27/20 23:59 23:59 23:59 Intake Total 1642.39 / 1804.97 2540.15 / 2600.15 106.13 / 106.13 Output Total 1850 / 1850 205 / 455 325 / 325 Balance -207.61 / -45.03 2335.15 / 2145.15 -218.87 / -218.87 Lab / Micro Data Result Diagrams: 12/27/20 07:53 12/26/20 03:30 Labs: Laboratory Results - last 24 hr 12/26/20 03:30: B-Natriuretic Peptide 223.7 H 12/26/20 13:05: APTT 85.6 H 12/27/20 01:30: APTT 51.7 H 12/27/20 07:53: WBC 12.1 H, RBC 3.30 L, Hgb 11.2 L, Hct 34.2 L, MCV 103.6 H, MCH 33.9 H, MCHC 32.7, RDW Std Deviation 54.2 H, RDW Coeff of Sully 14.2, Plt Count 120 L, MPV 10.9 Micro: Microbiology 12/23/20 08:02 Urine Catheter - Whitaker Urine Culture - Final Escherichia coli Cardiology Labs/Tests 12/26/20 03:30: B-Natriuretic Peptide 223.7 H 12/26/20 13:05: APTT 85.6 H 12/27/20 01:30: APTT 51.7 H 12/27/20 07:53: WBC 12.1 H, RBC 3.30 L, Hgb 11.2 L, Hct 34.2 L, MCV 103.6 H, MCH 33.9 H, MCHC 32.7, Plt Count 120 L, MPV 10.9 Rhythm: Sinus rhythm; PACs EKG: Sinus rhythm; PACs ECHO: As noted below Radiography Diagnostic Testing: Radiology Impression Echocardiogram 12/26/20 05:00 Interpretation Summary The study was technically difficult. Contrast injection was performed. Left ventricular systolic function is normal. The estimated ejection fraction is 65 %. Trivial mitral valve insufficiency. Mild tricuspid valve insufficiency. Mild (1+) aortic valve insufficiency. Borderline enlarged aortic root. Right ventricular systolic pressure estimated to be 68 mmHg c/w pulmonary hypertension. No evidence for diastolic dysfunction. Ordering Physician: Hilary Stanley Referring Physician: Stephanie Tejada Performed By: Gigi Clark RCS Physical Exam Const alert and oriented x3 Orientation / Consciousness: awake HEENT normocephalic and head/scalp atraumatic Eyes PERRL and EOMs intact bilaterally Neck full ROM, supple and no JVD Resp clear to auscultation bilaterally Cardio regular rate, regular rhythm, S1 normal heart sound and S2 normal heart sound GI normal to inspection, nondistended, normoactive bowel sounds Extremity no pedal edema Skin Skin Narrative: Dermatologic findings compatible with neurofibromatosis Neuro moves all extremities Psych mental status grossly normal Assessment & Plan Assessment/Plan (1) Atrial fibrillation and flutter: PLAN: The patient appears to have had paroxysmal atrial fibrillation/flutter. At the present time he is in sinus rhythm. He has undergone evaluation with a transthoracic echocardiogram with the results as noted. He is continuing oral amiodarone therapy at this time. He is continuing IV heparin at the moment. However, as he appears to be remaining in sinus rhythm at this time, it appears this can be discontinued. (2) Rhabdomyolysis: PLAN: The patient was found to have findings compatible with rhabdomyolysis. He is continuing evaluation care per internal medicine and pulmonology/critical care medicine. (3) Sepsis: PLAN: The patient was thought to have sepsis secondary to UTI. He will continue evaluation care per internal medicine and pulmonology/critical care medicine. (4) Acute UTI: PLAN: The patient is undergoing evaluation care for his UTI. (5) Acute kidney injury: PLAN: The patient was thought to have acute kidney injury secondary to his acute noncardiovascular events. His renal function was noted to be improving. He will continue evaluation and care. (6) Neurofibromatosis: PLAN: The patient has a longstanding history of neurofibromatosis. He states his main concern, based upon this diagnosis, is his weakness and frequent falls. Again his weakness and frequent falls does make it challenging for him to be considered a candidate for long-term oral systemic anticoagulant therapy as the risk-benefit ratio may not be in his favor. Addt'l Comments The above was discussed and reviewed with the patient. This note was generated using a voice recognition system and there may be incorrect words, spelling or punctuation that were not noted when reviewing the office note prior to saving.
[2020-12-27 08:35] LABS: Partial Thromboplast Time 60.3 Seconds (24.1-36.2)
[2020-12-27] MEDS: Primidone 250 MG Tablet PO ×2 (08:46→20:01)
[2020-12-27] MEDS: Amiodarone 200 MG Tablet PO ×2 (08:46→20:00)
[2020-12-27] MEDS: Phenytoin Na 100 MG Capsule PO ×3 (08:46→18:19)
[2020-12-27] MEDS: ETHOSUXIMIDE 250 MG CAPSULE PO ×2 (08:47→20:02)
--- NOTE | 2020-12-27 08:48 | CASEMGMT ---
Pt moved down to PCU. SW called [facility], faxed referral. SW also faxed referral to [facility], let Madelyn at [facility] know about referral as well, and that family is looking at a couple of different facilities. SW will continue to follow. GRADY Hammer
[2020-12-27] MEDS: Aspirin 81 MG TAB.CHEW PO (08:53)
[2020-12-27] MEDS: Phenobarbital 32.4 MG Tablet PO ×2 (08:53→20:04)
[2020-12-27 08:56] LABS: Anion Gap 6 (5-15); BUN 16 mg/dL (7-18); Calcium,Total 8.4 mg/dL (8.5-10.1); Chloride 110 mmol/L (98-107); Creatinine, Serum 0.84 mg/dL (0.70-1.30); EST Glomerular Filtration Rate 96 mL/min (>60); Est Glom Filt Rate - Afr Amer 116 mL/min (>60); Estimated Creatinine Clearance 73.25 ml/min; Glucose 87 mg/dL (74-106); Potassium 4.2 mmol/L (3.5-5.1); Sodium Level 141 mmol/L (136-145)
[2020-12-27] MEDS: Ceftriaxone 1 GM/50 ML BAG IV (09:07)
--- NOTE | 2020-12-27 09:55 | CASEMGMT ---
RAMU received a phone call from Madelyn with [facility]. [facility] can accept patient. RAMU is waiting on [facility]'s response as this was patient and family's 1st choice. Toña MARION
--- NOTE | 2020-12-27 11:09 | CASEMGMT ---
SW received a call that [facility] can take pt. Message left for U to let Ramona at [facility] know when to start precert. GRADY Hammer
--- NOTE | 2020-12-27 11:18 | CASEMGMT ---
RAMU called Marilin at [facility] and told her to go ahead and start the pre-cert. RAMU also called Madelyn with [facility] and let her know that patient has chosen another facility. RAMU then called patient's brother Shayne and let him know [facility] is able to accept patient. RAMU let Shayne know that patient will stay in the hospital until insurance gives approval. Shayne also asked SW about having patient sign Healthcare POA papers. RAMU told Shayne that SW will check with patient today. Plan: [facility] pending pre-cert and patient being medically ready. Toña Carrasquillo [facility] [employer]
[2020-12-27] MEDS: 0.45% Normal Saline 1,000 ML 60 ML IV (13:54)
[2020-12-27] MEDS: Atorvastatin Calcium 10 MG Tablet 5 MG PO (20:01)
[2020-12-27] MEDS: Acetaminophen 325 MG Tablet 650 MG PO (23:12)
[2020-12-28] VITALS (13 sets, daily range): BP systolic 103–108; BP diastolic 59–73; PULSE 81–95; RESP 17–18; TEMP 36.4–37.1; O2SAT 92–98
[2020-12-28] MEDS: 0.45% Normal Saline 1,000 ML 60 ML IV ×2 (04:57→20:51)
[2020-12-28] MEDS: 0.9% Saline Lock 10 ML Syringe IV (04:58)
[2020-12-28] MEDS: Amiodarone 200 MG Tablet PO (09:29)
[2020-12-28] MEDS: Primidone 250 MG Tablet PO ×2 (09:29→20:50)
[2020-12-28] MEDS: Aspirin 81 MG TAB.CHEW PO (09:29)
[2020-12-28] MEDS: Phenytoin Na 100 MG Capsule PO ×3 (09:29→17:37)
[2020-12-28] MEDS: ETHOSUXIMIDE 250 MG CAPSULE PO ×2 (09:33→20:51)
[2020-12-28] MEDS: Ceftriaxone 1 GM/50 ML BAG IV (09:33)
[2020-12-28] MEDS: Phenobarbital 32.4 MG Tablet PO ×2 (09:41→20:50)
--- NOTE | 2020-12-28 09:54 | PCM.TXEXTCAR ---
Diet 12/23/20 17:01 Diet: Regular - General Food consistency:: Pureed Liquid Consistency:: [place]/Mildly Thick Type of Dietary Supplement:: Ensure Pudding Diet Comments: assist,alt. sips/bites,no straws;applesauce,apple juice &van ES pud Qmeal Routine Orders/Code Status Suppository Type: Dulcolax 10mg Suppository Frequency: Daily PRN Wound(s) right elbow: Wound Type: Abrasion right knee: Wound Type: Abrasion Therapies Weight Bearing: Weight bearing as tolerated Extremity Affected:: Bilateral Lower Physical Therapy: Eval and Treat Occupational Therapy: Eval and Treat Speech Therapy: Eval and Treat Problem/Diagnosis (1) Rhabdomyolysis: Status: Acute (2) Acute UTI: Status: Acute (3) Acute kidney injury: Status: Acute (4) Sepsis: Status: Acute (5) Acute respiratory failure with hypoxia: Status: Acute (6) Pulmonary edema: Status: Acute Allergies/Procedures Done in Hospital Allergies No Known Allergies Allergy (Verified 12/23/20 07:49) Type of Care/Length of Stay Estimated LOS: Convalescent Care Less Than 30 days Type of Care Needed: Skilled Rehab Potential: Good Prognosis: Good Additional Orders/Day of Discharge Day of Discharge: 12/28/20 Dietary and Speech Recommendations Dietitian Recommendations/Changes: Continue Regular diet w/ consistency as per PLASTIC WELDING MACHINE OPERATOR--currently pureed w/ nectar-thick liquids & tolerating well. Will add 120 ml ensure enlive 4x/day w/ medpass. Will add ensure pudding TID w/ meals. Cardiac diet as indicted if PO optimal at meals. Discharge Plan Admission Admit Date/Time: 12/23/20 11:18 Primary Reason for Your Visit: Acute kidney injury Attending Provider: Sumanth Mckee Primary Care Provider: Stephanie Tejada Consulting Providers: Hilary Stanley ; Femi Hernandez ; Agapito Herrera ; Liseth Orellana ANTIQUE COLLECTOR Discharge Orders/Prescriptions Prescriptions: New amiodarone 200 mg Tablet 200 mg PO BID Qty: 0 RF: 0 Continued ethosuximide [Zarontin] 250 MG capsule 250 mg PO BID RF: 0 phenytoin sodium extended 100 MG capsule 100 mg PO TID RF: 0 primidone 250 MG tablet 250 mg PO BID RF: 0 simvastatin 10 mg Tablet 10 mg PO QHS RF: 0 fluticasone propionate 50 mcg/actuation [place],Suspension 1 spray INTRANASAL DAILY RF: 0 latanoprost 0.005 % Drops 1 drp EACH EYE DAILY RF: 0 vit D3-folic [id number] 2,000-800-0.32 unit-mcg-mg Tablet 1 tab PO DAILY RF: 0 Changed phenobarbital 32.4 MG tablet 32.4 mg PO BID Qty: 0 RF: 0 Referrals / Follow Up: Stephanie Tejada MD [Primary Care Provider] - Within 2 Weeks Thiago Mayorga MD [STAFF PHYSICIAN] - Within 2 Weeks (FOR SEIZURE WITH Neurofibromatosis) Maximus Lopez MD [STAFF PHYSICIAN] - Within 1 Month (as needed for UTI ) Disposition Disposition (needs filled in before D/C Order can be placed): Shelter Facility
--- NOTE | 2020-12-28 11:52 | DS.PCM_ITS ---
Providers Date of Admission: 12/23/20 Primary Care Physician: Dr. Stephanie Tejada MD Consultations 12/25/20 18:42 Consult: Cardiology Routine Consulting Provider: Hilary Stanley Reason for Consult: Sinus tach EMERGENT Consult: Yes MD Notified: Yes Date Notified: 12/25/20 Time Notified: 17:58 Method of Notification: Verbal Consult: Supercharger Repair Supervisor / Pulmonary Medicine Routine Consulting Provider: Pulmonary Medicine [facility] Reason for Consult: Sinus tach, UTI, Rhabdo EMERGENT Consult: No MD Notified: Yes Date Notified: 12/25/20 Time Notified: 17:59 Method of Notification: Text Reason For Visit: ARTURO RHABDOMYOLYSIS Diagnosis Discharge Diagnosis (1) Rhabdomyolysis: Status: Acute Code(s): M62.82 - Rhabdomyolysis (2) Acute UTI: Status: Acute Code(s): N39.0 - Urinary tract infection, site not specified (3) Acute kidney injury: Status: Acute Code(s): N17.9 - Acute kidney failure, unspecified (4) Sepsis: Status: Acute Code(s): A41.9 - Sepsis, unspecified organism (5) Acute respiratory failure with hypoxia: Status: Acute Code(s): J96.01 - Acute respiratory failure with hypoxia (6) Pulmonary edema: Status: Acute Code(s): J81.1 - Chronic pulmonary edema Medications at Discharge Home Medications ethosuximide [Zarontin] 250 mg PO BID 03/09/13 phenobarbital 32.4 mg PO TID 03/09/13 phenytoin sodium extended 100 mg PO TID 03/09/13 primidone 250 mg PO BID 03/09/13 fluticasone propionate [Flonase] 1 spray INTRANASAL DAILY 12/23/20 latanoprost 1 drp EACH EYE DAILY 12/23/20 simvastatin 10 mg PO QHS 12/23/20 vit D3-folic [id number] 1 tab PO DAILY 12/23/20 Weight / BMI Weight Weight: 141 lb 1.533 oz Body Mass Index (BMI) 20.0 ABG / Lab / Microbiology Data Result Diagrams: 12/27/20 07:53 12/27/20 07:53 Microbiology: Microbiology 12/23/20 08:59 Blood Culture (Wb) - Anticubital Left Blood Culture - Final No growth in 5 days. 12/23/20 08:10 Blood Culture (Wb) - Anticubital Left Bacteria Detection (PCR) - Final Coag Negative Staph 12/23/20 08:10 Blood Culture (Wb) - Anticubital Left Blood Culture - Final Coag Negative Staph 12/23/20 08:02 Urine Catheter - Whitaker Urine Culture - Final Escherichia coli Discharge Plan Admission Admit Date/Time: 12/23/20 11:18 Attending Provider: Sumanth Mckee Primary Care Provider: Stephanie Teajda Consulting Providers: Hilary Stanley ; Femi Hernandez ; Agapito Herrera ; Liseth Orellana RESOURCE RECOVERY ENGINEER Discharge Orders/Prescriptions Prescriptions: No Action ethosuximide [Zarontin] 250 MG capsule 250 mg PO BID RF: 0 phenytoin sodium extended 100 MG capsule 100 mg PO TID RF: 0 primidone 250 MG tablet 250 mg PO BID RF: 0 phenobarbital 32.4 MG tablet 32.4 mg PO TID RF: 0 simvastatin 10 mg Tablet 10 mg PO QHS RF: 0 fluticasone propionate [Flonase] 50 mcg/actuation [place],Suspension 1 spray INTRANASAL DAILY RF: 0 latanoprost 0.005 % Drops 1 drp EACH EYE DAILY RF: 0 vit D3-folic [id number] 2,000-800-0.32 unit-mcg-mg Tablet 1 tab PO DAILY RF: 0 Referrals / Follow Up: Stephanie Tejada MD [Primary Care Provider] -
--- NOTE | 2020-12-28 11:52 | DCINST_ITS ---
Discharge Instructions Follow Up Care Test Results: Test results from this visit will be discussed in further detail at your follow-up appointment, if applicable. Discharge Plan Admission Admit Date/Time: 12/23/20 11:18 Attending Provider: Sumanth Mckee Primary Care Provider: Stephanie Tejada Consulting Providers: Hilary Stanley ; Femi Hernandez ; Agapito Herrera ; Liseth Orellana FOREIGN DIPLOMAT Discharge Orders/Prescriptions Prescriptions: No Action ethosuximide [Zarontin] 250 MG capsule 250 mg PO BID RF: 0 phenytoin sodium extended 100 MG capsule 100 mg PO TID RF: 0 primidone 250 MG tablet 250 mg PO BID RF: 0 phenobarbital 32.4 MG tablet 32.4 mg PO TID RF: 0 simvastatin 10 mg Tablet 10 mg PO QHS RF: 0 fluticasone propionate [Flonase] 50 mcg/actuation [place],Suspension 1 spray INTRANASAL DAILY RF: 0 latanoprost 0.005 % Drops 1 drp EACH EYE DAILY RF: 0 vit D3-folic [id number] 2,000-800-0.32 unit-mcg-mg Tablet 1 tab PO DAILY RF: 0 Referrals / Follow Up: Stephanie Tejada MD [Primary Care Provider] -
[2020-12-28] MEDS: Acetaminophen 325 MG Tablet 650 MG PO ×2 (11:57→20:38)
--- NOTE | 2020-12-28 13:55 | CASEMGMT ---
RAMU spoke with Marilin at [facility] and patient was approved. RAMU let Marilin know that patient will be coming today. RAMU completed convalescent on HENS. RAMU called patient's brother, Shayne. RAMU let him know patient was approved and will go to [facility] today. Shayne asked about clothing for patient and visitation at [facility]. RAMU told him patient will get to wear regular clothes. RAMU told him SW will have to call [facility] to check on the current visitation. RAMU let Shayne know that RAMU will let him know when a time has been set up. Toña Carrasquillo PARTNER [employer] [place]
--- NOTE | 2020-12-28 14:13 | CASEMGMT ---
RAMU spoke with Marilin at [facility] and let her know patient's rapid COVID test was positive. RAMU let Marilin know that a PCR test that is more accurate was ordered. RAMU told her it would be back today and SW will let her know as soon as RAMU knows something more. Toña Carrasquillo PHYSICIST [employer] [place]
--- NOTE | 2020-12-28 14:38 | PN.HOSP_ITS ---
Subjective Subjective Patient on 2 L of oxygen. Objective Data Objective Data Vital Signs: Vital Signs Temp Pulse Resp BP Pulse Ox 98.8 F 84 17 104/68 95 12/28/20 09:18 12/28/20 11:23 12/28/20 09:18 12/28/20 09:18 12/28/20 09:18 Oxygen Flow Rate (L/min) 2 Oxygen Delivery Method Nasal Cannula Weight: 141 lb 1.533 oz Body Mass Index (BMI) 20.0 Intake & Output: Intake and Output for Last 24 Hours 12/26/20 12/27/20 12/28/20 23:59 23:59 23:59 Intake Total 2540.15 / 2600.15 1732.21 / 1732.21 1472 / 1472 Output Total 205 / 455 1475 / 1475 425 / 425 Balance 2335.15 / 2145.15 257.21 / 257.21 1047 / 1047 Lab / Micro Data Result Diagrams: 12/27/20 07:53 12/27/20 07:53 Micro: Microbiology 12/28/20 13:00 Nasal Secretion SARS-CoV-2 Antigen (Rapid) - Final SARS-CoV-2 (COVID 19) 12/23/20 08:59 Blood Culture (Wb) - Anticubital Left Blood Culture - Final No growth in 5 days. 12/23/20 08:10 Blood Culture (Wb) - Anticubital Left Bacteria Detection (PCR) - Final Coag Negative Staph 12/23/20 08:10 Blood Culture (Wb) - Anticubital Left Blood Culture - Final Coag Negative Staph 12/23/20 08:02 Urine Catheter - Whitaker Urine Culture - Final Escherichia coli Physical Exam Narrative General: Awake, oriented x3, Cooperative HEENT: Atraumatic, PERRLA, EOMI, Normocephalic Oral: No Gingival or Mucosal Lesions/ Ulcerations Neck: Supple, No JVD, Negative Carotid Bruits Lungs: Air entry diminished in bilateral lung bases. No crepitation/rhonchi Cardiovascular: Regular rate, Regular Rhythm, Normal S1, P2 loud, No murmurs Abdomen: Bowel Sounds Present, Soft, Non Tender, Non-Distended : Whitaker catheter. Dark urine. No renal angle tenderness. No suprapubic tenderness. Extremities: No edema, Capillary Refill Less than 3 Seconds Skin: Multiple subcutaneous nodules all over the body. Mild bruise present on right leg from fall since admission. Healing Musculoskeletal: No Tenderness to Palpation of Joints or Extremities Neurological: Cranial nerves II-XII grossly intact, weakness of both lower extre mity muscles at knee and hip joint. Psych/Mental Status: Flat affect. Assessment & Plan Assessment/Plan (1) Rhabdomyolysis: (2) Acute UTI: (3) Acute kidney injury: (4) Sepsis: (5) Acute respiratory failure with hypoxia: (6) Pulmonary edema: PLAN: 1. Acute kidney injury, most probably from rhabdomyolysis and septic shock mostly due to UTI: Patient is admitted in ICU. Urine culture shows E. coli 80 ,000-100,000 colonies. Blood culture coagulase negative staph. Urine output is low, oliguria. On IV ceftriaxone. Patient was on norepinephrine drip last night currently off. 12/27: Patient was transferred to PCU on 12/26. No fever. Patient has coagulase- negative staph, skin contamination. Urine culture also not in pathology cringe but since patient has septic shock he is on ceftriaxone. 12/28: Patient on 6-day of ceftriaxone. Will stop tomorrow. Rapid antigen came positive just before discharge to SNF. PCR is ordered. 2. Acute hypoxic respiratory failure secondary to pulmonary edema with severe pulmonary hypertension: CT angiogram negative for PE. Since patient had fluid overload and Lasix was given. PT OT and speech evaluation. 2D echo was noted and shows RVSP of 62 mainly consistent with severe pulmonary hypertension. Mild TR and AR. 3. Paroxysmal A. fib with RVR: On IV amiodarone and heparin drip. Patient history of frequent fall with debilitation not good candidate for long-term oral systemic anticoagulant therapy. 4. Neurofibromatosis with history of epilepsy: Phenytoin level was normal. Patient on ethosuximide, phenobarbital, primidone and Dilantin. Phenobarbital le supa is elevated at 44.3. Phenytoin level normal DVT: On IV heparin drip Charges/Coding Visit Charges Inpatient E&M: 56766 Subs Hosp L2
--- NOTE | 2020-12-28 14:48 | CASEMGMT ---
ARMU received a call from Marilin at [facility]. Marilin said that they can no longer accept patient due to the positive test. RAMU asked if his PCR is negative can they take him and she said no. RAMU notified physician as discharge will now have to be canceled. Patient will need a new pre-cert for whichever facility he ends up going to. RAMU called patient's brother, Shayne. RAMU let Shayne know the above information. RAMU let him know patient will not be discharged today since we will need to pick a new facility and we will need another insurance authorization. RAMU let Shayne know SW will update him when SW has more information. Toña Carrasquillo PET FOOD DEBONER [place]
--- NOTE | 2020-12-28 15:41 | PN.CARD_ITS ---
Subjective Subjective The patient appears to be resting comfortably today with no acute cardiovascular complaints. Objective Data Vital Signs: Vital Signs Temp Pulse Resp BP Pulse Ox 97.7 F L 81 18 107/67 96 12/28/20 15:10 12/28/20 15:10 12/28/20 15:10 12/28/20 15:10 12/28/20 15:10 Oxygen Flow Rate (L/min) 2 Oxygen Delivery Method Nasal Cannula Weight: 141 lb 1.533 oz Body Mass Index (BMI) 20.0 Intake & Output: Intake and Output for Last 24 Hours 12/26/20 12/27/20 12/28/20 23:59 23:59 23:59 Intake Total 2540.15 / 2600.15 1732.21 / 1732.21 1472 / 1472 Output Total 205 / 455 1475 / 1475 425 / 425 Balance 2335.15 / 2145.15 257.21 / 257.21 1047 / 1047 Lab / Micro Data Result Diagrams: 12/27/20 07:53 12/27/20 07:53 Micro: Microbiology 12/28/20 13:00 Nasal Secretion SARS-CoV-2 Antigen (Rapid) - Final SARS-CoV-2 (COVID 19) 12/23/20 08:59 Blood Culture (Wb) - Anticubital Left Blood Culture - Final No growth in 5 days. 12/23/20 08:10 Blood Culture (Wb) - Anticubital Left Bacteria Detection (PCR) - Final Coag Negative Staph 12/23/20 08:10 Blood Culture (Wb) - Anticubital Left Blood Culture - Final Coag Negative Staph Cardiology Labs/Tests Rhythm: Sinus rhythm Physical Exam Const alert and oriented x3 Orientation / Consciousness: awake HEENT normocephalic and head/scalp atraumatic Eyes PERRL and EOMs intact bilaterally Neck full ROM, supple and no JVD Resp clear to auscultation bilaterally Cardio regular rate, regular rhythm, S1 normal heart sound and S2 normal heart sound GI normal to inspection, nondistended, normoactive bowel sounds Extremity no pedal edema Skin Skin Narrative: Dermatologic findings compatible with neurofibromatosis Neuro moves all extremities Psych mental status grossly normal Assessment & Plan Assessment/Plan (1) Atrial fibrillation and flutter: PLAN: The patient appears to have had paroxysmal atrial fibrillation/flutter. At the present time he is in sinus rhythm. He has undergone evaluation with a transthoracic echocardiogram with the results as noted. He is continuing oral amiodarone therapy at this time. His dose will be decreased to daily. As his clinical course progresses, if he maintains sinus rhythm, perhaps he can discontinue this medication and be followed for any obvious recurrence of his atrial dysrhythmia. (2) Rhabdomyolysis: PLAN: The patient was found to have findings compatible with rhabdomyo lysis. He is continuing evaluation care per internal medicine and pulmonology/critical care medicine. (3) Sepsis: PLAN: The patient was thought to have sepsis secondary to UTI. He will continue evaluation care per internal medicine and pulmonology/critical care medicine. (4) Acute UTI: PLAN: The patient is undergoing evaluation care for his UTI. (5) Acute kidney injury: PLAN: The patient was thought to have acute kidney injury secondary to his acute noncardiovascular events. His renal function was noted to be improving. He will continue evaluation and care. (6) Neurofibromatosis: PLAN: The patient has a longstanding history of neurofibromatosis. He states his main concern, based upon this diagnosis, is his weakness and frequent falls. Again his weakness and frequent falls does make it challenging for him to be considered a candidate for long-term oral systemic anticoagulant therapy as the risk-benefit ratio may not be in his favor. Addt'l Comments This note was generated using a voice recognition system and there may be incorrect words, spelling or punctuation that were not noted when reviewing the office note prior to saving.
[2020-12-28 17:26] LABS: Probe Check PASS
[2020-12-28] MEDS: dexAMETHasone 4 MG Tablet 6 MG PO (20:50)
[2020-12-28] MEDS: Atorvastatin Calcium 10 MG Tablet 5 MG PO (20:50)
[2020-12-29] VITALS (13 sets, daily range): BP systolic 93–134; BP diastolic 57–75; PULSE 80–95; RESP 16–18; TEMP 36.4–36.6; O2SAT 93–100
--- NOTE | 2020-12-29 08:51 | CASEMGMT ---
SW reviewed chart and noted patient's PCR test is positive for COVID. SW will talk with patient's brother, Shayne regarding placement. The only local facility that is accepting positive patient's is [facility]. They are in network with patient's insurance. Toña Carrasquillo SENIOR TECHNICAL SUPPORT ENGINEER [facility]
[2020-12-29] MEDS: Ceftriaxone 1 GM/50 ML BAG IV (09:02)
[2020-12-29] MEDS: dexAMETHasone 4 MG Tablet 6 MG PO (09:04)
[2020-12-29] MEDS: ETHOSUXIMIDE 250 MG CAPSULE PO ×2 (09:04→21:30)
[2020-12-29] MEDS: Primidone 250 MG Tablet PO ×2 (09:04→21:30)
[2020-12-29] MEDS: Aspirin 81 MG TAB.CHEW PO (09:05)
[2020-12-29] MEDS: Amiodarone 200 MG Tablet PO (09:05)
[2020-12-29] MEDS: Phenobarbital 32.4 MG Tablet PO ×2 (09:05→21:36)
[2020-12-29] MEDS: Phenytoin Na 100 MG Capsule PO ×3 (09:05→17:24)
--- NOTE | 2020-12-29 09:17 | CASEMGMT ---
RAMU called patient's brother, Shayne and left him a voice mail requesting a return call. Toña MARION
--- NOTE | 2020-12-29 09:30 | CASEMGMT ---
RAMU received a call from patient's sister, Criss. She said Shayne is unavailable right now and she wanted to call SW back. She asked if patient will be discharged right away or if they will treat patient for COVID. RAMU told her SW does not know as this will be up to the physician. RAMU told her that [facility] is the only local facility that is taking positive patients. RAMU told her [facility] in [place] is the next closest facility and the other ones are in [facility]. Criss said they are not happy with patient going to [facility]. She is waiting on a return call from the charge nurse. She will talk with her brothers and someone will get back to RAMU. Toña Carrasquillo BOAT DIESEL MOTOR MECHANIC SANAM
--- NOTE | 2020-12-29 10:18 | RAD_ITS ---
STUDY: X-RAY CHEST REASON FOR EXAM: Male, 70 years old. covid pneumonia TECHNIQUE: Single AP portable view of the chest. COMPARISON: Comparison is made with prior study dated 12/24/2020. FINDINGS: EKG electrodes are seen. Persistent bibasilar infiltrates more prominent on the left side. 129 of the right costo phrenic angle. Normal size heart. Normal mediastinum and ankur. Normal visualized pulmonary arteries. Normal visualized aortic arch and descending thoracic aorta. Normal visualized thoracic spine. There is degenerative osteoarthritis of the bilateral shoulders. Multiple nodules are seen within the soft tissues. There is no demonstrated abnormality of the visualized soft tissue structures of the upper abdomen. RAD/Chest 1 View (Portable) IMPRESSION: Essentially stable examination with evidence of bibasilar infiltrates more prominent at the left lung base. Blunting of the right costophrenic angle. Electronically Signed: Yonatan Correa MD at 13:42 EDT , Service support ,
--- NOTE | 2020-12-29 10:21 | CASEMGMT ---
RAMU received another phone call from patient's sister Criss. Criss lives in [facility]. Criss asked RAMU to check with [facility] [place] to see if they are accepting positive patients. RAMU also answered some other questions Criss asked. Toña MARION
--- NOTE | 2020-12-29 11:04 | NURSING ---
Update provided to patient's sister Madelyn.
[2020-12-29 11:39] LABS: Absolute Lymphocyte Count 0.65 X10^3/uL (0.83-4.51); Absolute Neutrophil Count 11.9 X10^3/uL (2.0-7.7); Basophil# 0.03 X10^3/uL; Basophil% 0.2 % (0-1); Eosinophil# 0.35 X10^3/uL; Eosinophils% 2.5 % (0-5); Hematocrit 36.8 % (40-54); Hemoglobin 12.4 g/dL (13.0-16.5); Lymphocyte # 0.65 X10^3/ul (0.83-4.51); Lymphocyte % 4.7 % (19-41); Mean Corp Hgb Conc 33.7 g/dL (32-36); Mean Corpuscular Hgb 34.3 pg (27.0-32.0); Mean Corpuscular Volume 101.7 fL (80-94); Monocyte# 0.84 X10^3/uL; NRBC Flagged by Analyzer 0 % (0-5); Neutrophil # 11.93 X10^3/uL (2.7-7.7); Neutrophil % 85.4 % (47-70); Platelet Count 169 K/mm3 (150-450); RBC Distribution Width CV 13.9 % (11.6-14.6); RBC Distribution Width SD 52.4 fl (35.1-43.9); Red Blood Count 3.62 M/mm3 (4.6-6.2)
[2020-12-29 11:55] LABS: ALB/GLOB Ratio 0.3 RATIO (0.9-2.4); AST(SGOT) 26 U/L (15-37); Alanine Aminotransfer ALT/SGPT 24 U/L (16-61); Albumin, Serum 1.6 g/dL (3.2-5.0); Alkaline Phosphatase 84 U/L (45-117); Anion Gap 9 (5-15); BUN 15 mg/dL (7-18); BUN/Creat Ratio 14.9 RATIO (10-20); Calcium,Total 8.6 mg/dL (8.5-10.1); Chloride 104 mmol/L (98-107); Creatinine, Serum 1.01 mg/dL (0.70-1.30); EST Glomerular Filtration Rate 78 mL/min (>60); Est Glom Filt Rate - Afr Amer 94 mL/min (>60); Glucose 111 mg/dL (74-106); Magnesium 1.8 mg/dL (1.6-2.6); Potassium 3.8 mmol/L (3.5-5.1); Protein, Total 6.6 g/dL (6.4-8.2); Sodium Level 136 mmol/L (136-145)
--- NOTE | 2020-12-29 12:46 | PN.CARD_ITS ---
Subjective Subjective The patient is awake and alert. He does not describe any new acute cardiovascular symptoms. Objective Data Vital Signs: Vital Signs Temp Pulse Resp BP Pulse Ox 97.6 F L 83 16 98/61 96 12/29/20 11:00 12/29/20 11:00 12/29/20 11:00 12/29/20 11:00 12/29/20 11:42 Oxygen Flow Rate (L/min) 2 Oxygen Delivery Method Nasal Cannula Weight: 140 lb 3.424 oz Body Mass Index (BMI) 20.0 Intake & Output: Intake and Output for Last 24 Hours 12/27/20 12/28/20 12/29/20 23:59 23:59 23:59 Intake Total 1732.21 / 1732.21 2268 / 2268 1261 / 1261 Output Total 1475 / 1475 825 / 825 350 / 350 Balance 257.21 / 257.21 1443 / 1443 911 / 911 Lab / Micro Data Result Diagrams: 12/29/20 11:22 12/29/20 11:22 Labs: Laboratory Results - last 24 hr 12/28/20 15:00: COVID-19 (JORGE A) Positive 12/29/20 11:22: WBC 14.0 H, RBC 3.62 L, Hgb 12.4 L, Hct 36.8 L, MCV 101.7 H, MCH 34.3 H, MCHC 33.7, RDW Std Deviation 52.4 H, RDW Coeff of Sully 13.9, Plt Count 169, MPV 11.0, Immature Gran % (Auto) 1.200 H, Neut % (Auto) 85.4 H, Lymph % (Auto) 4.7 L, Dickenson % (Auto) 6.0, Eos % (Auto) 2.5, Baso % (Auto) 0.2, Absolute Neuts (auto) 11.9 H, Absolute Lymphs (auto) 0.65 L, Nucleated RBC % 0 12/29/20 11:22: Sodium 136, Potassium 3.8, Chloride 104, Carbon Dioxide 23.0, Anion Gap 9, BUN 15, Creatinine 1.01, Estim Creat Clear Calc 62.10, Est GFR (M DRD) Af Amer 94, Est GFR (MDRD) Non-Af 78, BUN/Creatinine Ratio 14.9, Glucose 111 H, Calcium 8.6, Magnesium 1.8, Total Bilirubin 0.20, AST 26, ALT 24, Alkaline Phosphatase 84, Total Protein 6.6, Albumin 1.6 L, Globulin 5.0 H, Albumin/Globulin Ratio 0.3 L Micro: Microbiology 12/28/20 13:00 Nasal Secretion SARS-CoV-2 Antigen (Rapid) - Final SARS-CoV-2 (COVID 19) 12/23/20 08:59 Blood Culture (Wb) - Anticubital Left Blood Culture - Final No growth in 5 days. 12/23/20 08:10 Blood Culture (Wb) - Anticubital Left Bacteria Detection (PCR) - Final Coag Negative Staph 12/23/20 08:10 Blood Culture (Wb) - Anticubital Left Blood Culture - Final Coag Negative Staph Cardiology Labs/Tests 12/29/20 11:22: WBC 14.0 H, RBC 3.62 L, Hgb 12.4 L, Hct 36.8 L, MCV 101.7 H, MCH 34.3 H, MCHC 33.7, Plt Count 169, MPV 11.0, Immature Gran % (Auto) 1.200 H, Neut % (Auto) 85.4 H, Lymph % (Auto) 4.7 L, Dickenson % (Auto) 6.0, Eos % (Auto) 2.5, Baso % (Auto) 0.2, Absolute Neuts (auto) 11.9 H, Nucleated RBC % 0 12/29/20 11:22: Sodium 136, Potassium 3.8, Chloride 104, Carbon Dioxide 23.0, Anion Gap 9, BUN 15, Creatinine 1.01, Est GFR (MDRD) Af Amer 94, Est GFR (MDRD) Non-Af 78, BUN/Creatinine Ratio 14.9, Glucose 111 H, Calcium 8.6, Magnesium 1.8, Total Bilirubin 0.20 Rhythm: Sinus rhythm; one brief episode appearing compatible with PAF. Physical Exam Const alert and oriented x3 Orientation / Consciousness: awake HEENT normocephalic and head/scalp atraumatic Eyes PERRL and EOMs intact bilaterally Neck full ROM, supple and no JVD Resp clear to auscultation bilaterally Cardio regular rate, regular rhythm, S1 normal heart sound and S2 normal heart sound GI normal to inspection, nondistended, normoactive bowel sounds Extremity no pedal edema Skin Skin Narrative: Dermatologic findings compatible with neurofibromatosis Neuro moves all extremities Psych mental status grossly normal Assessment & Plan Assessment/Plan (1) Atrial fibrillation and flutter: PLAN: The patient appears to have had paroxysmal atrial fibrillation/flutter. At the present time he is in sinus rhythm. He appears to have had one brief episode appearing compatible with PAF. Based upon the above he will continue his amiodarone therapy at this time. He can continue anticoagulant therapy as deemed appropriate, however, again based upon his history he does not appear to be an ideal candidate for long-term oral systemic anticoagulant therapy. (2) Rhabdomyolysis: PLAN: The patient was found to have findings compatible with rhabdomyolysis. He is continuing evaluation care per internal medicine and pulmonology/critical care medicine. (3) Sepsis: PLAN: The patient was thought to have sepsis secondary to UTI. He will continue evaluation care per internal medicine and pulmonology/critical care medicine. (4) Acute UTI: PLAN: The patient is undergoing evaluation care for his UTI. (5) Acute kidney injury: PLAN: The patient was thought to have acute kidney injury secondary to his acute noncardiovascular events. His renal function was noted to be improving. He will continue evaluation and care. (6) Neurofibromatosis: PLAN: The patient has a longstanding history of neurofibromatosis. He states his main concern, based upon this diagnosis, is his weakness and frequent falls. Again his weakness and frequent falls does make it challenging for him to be considered a candidate for long-term oral systemic anticoagulant therapy as the risk-benefit ratio may not be in his favor. (7) COVID-19: PLAN: The patient has now been tested and reported positive for COVID-19. He will continue evaluation care per internal medicine and infectious disease as deemed appropriate. Addt'l Comments This note was generated using a voice recognition system and there may be incorrect words, spelling or punctuation that were not noted when reviewing the office note prior to saving.
[2020-12-29] MEDS: 0.45% Normal Saline 1,000 ML 60 ML IV (13:13)
--- NOTE | 2020-12-29 14:07 | PCM.PN.HOSP ---
Subjective Subjective Patient does not have any increase in shortness of breath. On further history he said he has chronic shortness of breath intermittently on and off. He does not have personal history of smoking but secondhand smoke inhalation. Does not have evaluation PFT for COPD. Chest x-ray and labs were ordered. ID consulted. Objective Data Objective Data Vital Signs: Vital Signs Temp Pulse Resp BP Pulse Ox 97.6 F L 83 16 98/61 96 12/29/20 11:00 12/29/20 11:00 12/29/20 11:00 12/29/20 11:00 12/29/20 11:42 Oxygen Flow Rate (L/min) 2 Oxygen Delivery Method Nasal Cannula Weight: 140 lb 3.424 oz Body Mass Index (BMI) 20.0 Intake & Output: Intake and Output for Last 24 Hours 12/27/20 12/28/20 12/29/20 23:59 23:59 23:59 Intake Total 1732.21 / 1732.21 2268 / 2268 1482 / 1482 Output Total 1475 / 1475 825 / 825 350 / 350 Balance 257.21 / 257.21 1443 / 1443 1132 / 1132 Lab / Micro Data Result Diagrams: 12/29/20 11:22 12/29/20 11:22 Labs: Laboratory Results - last 24 hr 12/28/20 15:00: COVID-19 (JORGE A) Positive 12/29/20 11:22: WBC 14.0 H, RBC 3.62 L, Hgb 12.4 L, Hct 36.8 L, MCV 101.7 H, MCH 34.3 H, MCHC 33.7, RDW Std Deviation 52.4 H, RDW Coeff of Sully 13.9, Plt Count 169, MPV 11.0, Immature Gran % (Auto) 1.200 H, Neut % (Auto) 85.4 H, Lymph % (Auto) 4.7 L, [place] % (Auto) 6.0, Eos % (Auto) 2.5, Baso % (Auto) 0.2, Absolute Neuts (auto) 11.9 H, Absolute Lymphs (auto) 0.65 L, Nucleated RBC % 0 12/29/20 11:22: Sodium 136, Potassium 3.8, Chloride 104, Carbon Dioxide 23.0, Anion Gap 9, BUN 15, Creatinine 1.01, Estim Creat Clear Calc 62.10, Est GFR (MDRD) Af Amer 94, Est GFR (MDRD) Non-Af 78, BUN/Creatinine Ratio 14.9, Glucose 111 H, Calcium 8.6, Magnesium 1.8, Total Bilirubin 0.20, AST 26, ALT 24, Alkaline Phosphatase 84, Total Protein 6.6, Albumin 1.6 L, Globulin 5.0 H, Albumin/Globulin Ratio 0.3 L Micro: Microbiology 12/28/20 13:00 Nasal Secretion SARS-CoV-2 Antigen (Rapid) - Final SARS-CoV-2 (COVID 19) 12/23/20 08:59 Blood Culture (Wb) - Anticubital Left Blood Culture - Final No growth in 5 days. 12/23/20 08:10 Blood Culture (Wb) - Anticubital Left Bacteria Detection (PCR) - Final Coag Negative Staph 12/23/20 08:10 Blood Culture (Wb) - Anticubital Left Blood Culture - Final Coag Negative Staph 12/23/20 08:02 Urine Catheter - Whitaker Urine Culture - Final Escherichia coli Radiography Diagnostic Testing: Radiology Impression Chest X-Ray 12/29/20 10:18 IMPRESSION: Essentially stable examination with evidence of bibasilar infiltrates more prominent at the left lung base. Blunting of the right costophrenic angle. Electronically Signed: Yonatan Correa MD at 13:42 EDT , Service support , Physical Exam Narrative General: Awake, oriented x3, Cooperative HEENT: Atraumatic, PERRLA, EOMI, Normocephalic Oral: No Gingival or Mucosal Lesions/ Ulcerations Neck: Supple, No JVD, Negative Carotid Bruits Lungs: Air entry diminished in bilateral lung bases. No crepitation/rhonchi Cardiovascular: Regular rate, Regular Rhythm, Normal S1, P2 loud, No murmurs Abdomen: Bowel Sounds Present, Soft, Non Tender, Non-Distended : No renal angle tenderness. No suprapubic tenderness. Extremities: No edema, Capillary Refill Less than 3 Seconds Skin: Multiple subcutaneous nodules all over the body. Mild bruise present on right leg from fall since admission. Healing Musculoskeletal: No Tenderness to Palpation of Joints or Extremities Neurological: Cranial nerves II-XII grossly intact, weakness of both lower extremity muscles at knee and hip joint. Psych/Mental Status: Flat affect. Assessment & Plan Assessment/Plan (1) Rhabdomyolysis: (2) Acute UTI: (3) Acute kidney injury: (4) Sepsis: (5) Acute respiratory failure with hypoxia: (6) Pulmonary edema: PLAN: 1. Acute kidney injury, most probably from rhabdomyolysis and septic shock mostly due to UTI: Patient is admitted in ICU. Urine culture shows E. coli 80,000-100,000 colonies. Blood culture coagulase negative staph. Urine output is low, oliguria. On IV ceftriaxone. Patient was on norepinephrine drip last night currently off. 12/27: Patient was transferred to PCU on 12/26. No fever. Patient has coagulase-negative staph, skin contamination. Urine culture also not in pathology cringe but since patient has septic shock he is on ceftriaxone. 12/28: Patient on 6-day of ceftriaxone. Will stop tomorrow. Rapid antigen came positive just before discharge to SNF. PCR is ordered. 12/29: PCR is positive. Patient was a started on dexamethasone yesterday. ID consulted and is out of window for remdesivir. Exact time of onset of cold symptoms unclear patient has chronic shortness of breath and he was found laying on the floor, reason for admission with rhabdomyolysis. Discussed with the rehabilitation case coordinator will need SNF with new application for pre-CERT. 2. Acute hypoxic respiratory failure secondary to pulmonary edema with severe pulmonary hypertension: CT angiogram negative for PE. Since patient had fluid overload and Lasix was given. PT OT and speech evaluation. 2D echo was noted and shows RVSP of 62 mainly consistent with severe pulmonary hypertension. Mild TR and AR. 3. Paroxysmal A. fib with RVR: On IV amiodarone and heparin drip. Patient history of frequent fall with debilitation not good candidate for long-term oral systemic anticoagulant therapy. Patient heparin drip changed to Lovenox. Patient not a good candidate for anticoagulant and is not a good candidate for for NOACs because of strong P glycoprotein inducer as his multiple antiepileptic medications including Dilantin, phenobarbital and primidone. 4. Neurofibromatosis with history of epilepsy: Phenytoin level was normal. Patient on ethosuximide, phenobarbital, primidone and Dilantin. Phenobarbital level is elevated at 44.3. Phenytoin level normal DVT: On Lovenox as mentioned above. Charges/Coding Visit Charges Inpatient E&M: 74079 Subs Hosp L2
[2020-12-29] MEDS: Enoxaparin 60 MG/0.6 ML Syringe SC (15:16)
--- NOTE | 2020-12-29 15:31 | CON.PCM.ID_ITS ---
Assessment & Plan Assessment/Plan (1) COVID-19: PLAN: Now covid (+). Not screened on admit. Stable low level O2 reqs. On dex. CT showed no PE on admit. Completes ceftriaxone tomorrow. Fever resolved. Isolate for 20 days from (+) test 12/28. Will follow, thank you (2) Neurofibromatosis: (3) Acute UTI: (4) Acute respiratory failure with hypoxia: HPI Consult Data Date of Consult: 12/29/20 HPI Narrative HPI Narrative: SABA DOMINGUEZ, is a 70 M who presented with fall and found down at home. Denies feeling sick prior to that. No sick contacts. Some chronic cou gh, some chronic prostate issues, some chronic headache. Came to ED, admitted to icu with afib. Has been on ceftriaxone for uti, dysuria improved. Mild fever intermittently here. Covid done yesterday prior to ECF transfer, now covid (+); was not tested on admit. Started on dex. Feeling ok. No change in taste or smell. Full ROS performed and neg except as noted above. [facility] Medical History Atrial fibrillation and flutter COVID-19 High cholesterol Migraines Neurofibromatosis Neurofibromatosis Seizures Home Medications ethosuximide [Zarontin] 250 mg PO BID 03/09/13 [History Last Taken 12/21/20] phenytoin sodium extended 100 mg PO TID 03/09/13 [History Last Taken 12/21/20] primidone 250 mg PO BID 03/09/13 [History Last Taken 12/21/20] fluticasone propionate 1 spray INTRANASAL DAILY 12/23/20 [History Last Taken 12/21/20] latanoprost 1 drp EACH EYE DAILY 12/23/20 [History Last Taken 12/21/20] simvastatin 10 mg PO QHS 12/23/20 [History Last Taken 12/20/20] vit D3-folic ooyl-D5-S7-B12 1 tab PO DAILY 12/23/20 [History Last Taken 12/21/20] amiodarone 200 mg PO BID #0 tab 12/28/20 [Rx Last Taken Unknown] phenobarbital 32.4 mg PO BID #0 tab 12/28/20 [Rx Last Taken 12/20/20] Allergy/AdvReac Type Severity Reaction Status Date / Time No Known Allergies Allergy Verified 12/23/20 07:49 Family History (Updated 12/23/20 @ 18:[address] Chase Bruno MD) Other CVA (cerebral vascular accident) Surgical History no surgical history Social History (Updated 12/23/20 @ 07:[address] Claude Wilkes, DO) Smoking Status: Former smoker substance use type: does not use Physical Exam Const alert and no apparent distress General Appearance: cooperative Exam Limitations: no limitations HEENT normocephalic and head/scalp atraumatic Eyes PERRL and EOMs intact bilaterally Neck supple and No nodes Resp clear to auscultation bilaterally Auscultation: wheezes Cardio regular rate and regular rhythm GI normal to inspection, nondistended, normoactive bowel sounds Extremity no clubbing, cyanosis or edema Skin no rashes or lesions noted Skin Narrative: neurofibromatosis Neuro CN's II-XII intact bilaterally Lab / Micro Data Result Diagrams: 12/29/20 11:22 12/29/20 11:22 Labs: Laboratory Results - last 24 hr 12/28/20 15:00: COVID-19 (JORGE A) Positive 12/29/20 11:22: WBC 14.0 H, RBC 3.62 L, Hgb 12.4 L, Hct 36.8 L, MCV 101.7 H, MCH 34.3 H, MCHC 33.7, RDW Std Deviation 52.4 H, RDW Coeff of Sully 13.9, Plt Count 169, MPV 11.0, Immature Gran % (Auto) 1.200 H, Neut % (Auto) 85.4 H, Lymph % (Auto) 4.7 L, [place] % (Auto) 6.0, Eos % (Auto) 2.5, Baso % (Auto) 0.2, Absolute Neuts (auto) 11.9 H, Absolute Lymphs (auto) 0.65 L, Nucleated RBC % 0 12/29/20 11:22: Sodium 136, Potassium 3.8, Chloride 104, Carbon Dioxide 23.0, Anion Gap 9, BUN 15, Creatinine 1.01, Estim Creat Clear Calc 62.10, Est GFR (MDRD) Af Amer 94, Est GFR (MDRD) Non-Af 78, BUN/Creatinine Ratio 14.9, Glucose 111 H, Calcium 8.6, Magnesium 1.8, Total Bilirubin 0.20, AST 26, ALT 24, Alkaline Phosphatase 84, Total Protein 6.6, Albumin 1.6 L, Globulin 5.0 H, Albumin/Globulin Ratio 0.3 L Micro: Microbiology 12/28/20 13:00 Nasal Secretion SARS-CoV-2 Antigen (Rapid) - Final SARS-CoV-2 (COVID 19) Radiology Impression Chest X-Ray 12/29/20 10:18 IMPRESSION: Essentially stable examination with evidence of bibasilar infiltrates more prominent at the left lung base. Blunting of the right costophrenic angle. Electronically Signed: Yonatan Correa MD at 13:42 EDT , Service support ,
[2020-12-29] MEDS: Atorvastatin Calcium 10 MG Tablet 5 MG PO (21:29)
[2020-12-29] MEDS: Acetaminophen 325 MG Tablet 650 MG PO (21:30)
--- NOTE | 2020-12-29 22:00 | NURSING ---
po 97% on 2lnc. 02 decreased to 1lnc
[2020-12-30] VITALS (17 sets, daily range): BP systolic 91–160; BP diastolic 58–136; PULSE 81–130; RESP 16–24; TEMP 36.6–36.9; O2SAT 68–100
[2020-12-30] MEDS: Enoxaparin 60 MG/0.6 ML Syringe SC ×3 (01:52→21:53)
--- NOTE | 2020-12-30 02:01 | NURSING ---
Pt placed on ra
--- NOTE | 2020-12-30 06:49 | CASEMGMT ---
Late Entry: Noted from 12-29-20 SW had numerous phone calls from patient's sister Criss. Criss asked SW to check with [facility] about taking patient despite they are not in network and do not take positive COVID patients. A family member works there and told Criss they will look at the referral. SW called [facility] and this is not accurate. SW notified Criss. SW also notified Criss SW did check with the [facility] and they are not taking positive patients unless they are on a vent. Criss asked if RAMU could check with other facilities in [facility]. She was going to check with some as well and hopefully have a list for SW tomorrow. RAMU did call about 6 facilities and none of them were accepting positive COVID patients. Toña Carrasquillo MANAGER SURGERY [place]
--- NOTE | 2020-12-30 06:55 | EKG12_ITS ---
Test Reason : TACHYCARDIA Blood Pressure : / mmHG Vent. Rate : 137 BPM Atrial Rate : 441 BPM P-R Int : 000 ms QRS Dur : 072 ms QT Int : 268 ms P-R-T Axes : 054 000 060 degrees QTc Int : 404 ms Somatic/Motion Artifact Sinus tachycardia Nonspecific ST abnormality Abnormal ECG Confirmed by SANDIE ROGERS, LAWANDA ([id number]), marketing editor ARSLAN GIVENS ([id number]) on 01/02/2021 11:16:27 AM Referred By: JONATHON Confirmed By:LAWANDA HOOPER MD
[2020-12-30 06:59] LABS: Absolute Lymphocyte Count 1.03 X10^3/uL (0.83-4.51); Basophil# 0.04 X10^3/uL; Basophil% 0.4 % (0-1); Eosinophil# 0.41 X10^3/uL; Eosinophils% 3.6 % (0-5); Hematocrit 36.1 % (40-54); Hemoglobin 12.2 g/dL (13.0-16.5); Lymphocyte # 1.03 X10^3/ul (0.83-4.51); Lymphocyte % 9.1 % (19-41); Mean Corp Hgb Conc 33.8 g/dL (32-36); Mean Corpuscular Hgb 33.7 pg (27.0-32.0); Mean Corpuscular Volume 99.7 fL (80-94); Mean Platelet Vol. 11.2 fl (6.2-12.0); Monocyte% 6.2 % (0-10); NRBC Flagged by Analyzer 0 % (0-5); Neutrophil # 9.01 X10^3/uL (2.7-7.7); Neutrophil % 79.2 % (47-70); Platelet Count 213 K/mm3 (150-450); RBC Distribution Width CV 13.7 % (11.6-14.6); RBC Distribution Width SD 50.1 fl (35.1-43.9); Red Blood Count 3.62 M/mm3 (4.6-6.2); White Blood Count 11.4 K/mm3 (4.4-11.0)
--- NOTE | 2020-12-30 07:03 | NURSING ---
PT woke and started shaking c/o could not catch his breath. hrt went into 130. . Pt shaking all over when enter room. pulse ox 68%. pt placed on 50% mask. pulse ox 84%. pt then changed to 100% nonrebreather mask. resp getting ekg. pulse ox 100% on 100% nonrebreather mask.
[2020-12-30 07:30] LABS: Anion Gap 7 (5-15); BUN 17 mg/dL (7-18); BUN/Creat Ratio 16.7 RATIO (10-20); Calcium,Total 8.4 mg/dL (8.5-10.1); Chloride 107 mmol/L (98-107); Creatinine, Serum 1.02 mg/dL (0.70-1.30); EST Glomerular Filtration Rate 77 mL/min (>60); Est Glom Filt Rate - Afr Amer 93 mL/min (>60); Estimated Creatinine Clearance 61.87 ml/min; Glucose 83 mg/dL (74-106); Potassium 3.9 mmol/L (3.5-5.1); Sodium Level 138 mmol/L (136-145)
--- NOTE | 2020-12-30 07:30 | NURSING ---
dr roberts in to see pt
--- NOTE | 2020-12-30 07:46 | CT_ITS ---
STUDY: CT BRAIN WITHOUT CONTRAST REASON FOR EXAM: Male, 70 years old. Altered mental status, seizure? RADIATION DOSAGE (If Supplied By Facility): CTDIvol = ( 44.99 ) mGy, DLP = ( 796.11 ) mGycm TECHNIQUE: Transaxial CT imaging of the brain was performed without administration of intravenous contrast material. Individualized dose optimization techniques were used for this CT. COMPARISON: Comparison is made with prior examination dated 12/23/2020. FINDINGS: Multiple small soft tissue nodules are once again seen overlying the skull. Normal calvarium. There is mild cerebral atrophy with widening of the extra-axial spaces and ventricular dilatation. There are areas of decreased attenuation within the white matter tracts of the supratentorial brain, consistent with microvascular disease changes. 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 Old lacunar infarct in the left basal ganglion. Normal brainstem. Normal cerebellum. There is no intracranial hemorrhage. There are no findings of an acute ischemic infarction. Mild degree of mucosal thickening of the right maxillary sinus. Mild degree of mucosal thickening of the ethmoid sinuses and frontal sinuses. CT/Brain/Head without Contrast IMPRESSION: Chronic involutional changes of the brain. Electronically Signed: Yonatan Correa MD at 8:56 EDT , Service support ,
--- NOTE | 2020-12-30 07:49 | TELEMED_ITS ---
SOC Telemed has confirmed receipt of a request for visit. This document confirms receipt of the order initiating the consult. To find the results of the consultation, please view the patient's reports for the scanned Telemed Consult.
[2020-12-30 08:14] LABS: CPK Total, Creatine Kinase 43 U/L (39-308)
[2020-12-30] MEDS: LORazepam 2 MG/ML Syringe 1 MG IV (08:17)
[2020-12-30 08:21] LABS: AST(SGOT) 27 U/L (15-37); Alanine Aminotransfer ALT/SGPT 21 U/L (16-61); Albumin, Serum 1.7 g/dL (3.2-5.0); Alkaline Phosphatase 78 U/L (45-117); Bilirubin, Direct 0.07 mg/dL (0.00-0.30); Globulin 4.6 g/dL (2.2-4.2); Magnesium 1.9 mg/dL (1.6-2.6); Phosphorus 2.4 mg/dL (2.5-4.9); Protein, Total 6.3 g/dL (6.4-8.2)
[2020-12-30 09:12] LABS: Phenytoin (Dilantin) Level 3.9 mL (10.0-20.0)
--- NOTE | 2020-12-30 09:18 | CASEMGMT ---
RAMU called [facility] and they do not have any COVID positive beds available. SW called [facility] and they do possibly have a bed available. SW let her know SW will likely be sending a referral. RAMU called patient's sister Criss and let her know above. She was in agreement with RAMU faxing a referral to [facility]. RAMU asked if SW should call her with updates or Shayne. Criss said SW can call her with updates. SW faxed referral to [facility]. Await their response. Toña Carrasquillo ASSEMBLY AND PACKING SUPERVISOR SANAM
[2020-12-30] MEDS: Primidone 250 MG Tablet PO ×2 (09:24→21:54)
[2020-12-30] MEDS: dexAMETHasone 4 MG Tablet 6 MG PO (09:26)
[2020-12-30] MEDS: Amiodarone 200 MG Tablet PO (09:26)
[2020-12-30] MEDS: Aspirin 81 MG TAB.CHEW PO (09:27)
[2020-12-30] MEDS: Phenobarbital 32.4 MG Tablet PO ×2 (09:27→21:54)
[2020-12-30] MEDS: Phenytoin Na 100 MG Capsule PO ×2 (09:27→11:43)
[2020-12-30] MEDS: ETHOSUXIMIDE 250 MG CAPSULE PO ×2 (09:32→21:54)
[2020-12-30] MEDS: Lidocaine 5% Patch 1 PATCH TOPICAL (11:43)
--- NOTE | 2020-12-30 15:09 | PCM.PN.HOSP ---
Subjective Subjective The night nurse called me spool carrier stating that patient has altered mental status. As per the night nurse, he has started shaking complain of could not catch his breath. Heart rate was in 130s. Pulse ox was 68% and patient was put on nonrebreather. Subsequently twelve-lead EKG was done which showed mainly artifacts, sinus tachycardia. His previous EKG on 25 December 2020 showed atrial flutter with variable AV block, PVCs, LAD, nonspecific ST abnormality at 163 beats. Although it looks supraventricular tachycardia. Objective Data Objective Data Vital Signs: Vital Signs Temp Pulse Resp BP Pulse Ox 98.1 F 82 16 91/63 97 12/30/20 14:05 12/30/20 14:05 12/30/20 14:05 12/30/20 14:05 12/30/20 14:05 Oxygen Flow Rate (L/min) 2 Oxygen Delivery Method Nasal Cannula Weight: 141 lb 1.533 oz Body Mass Index (BMI) 20.0 Intake & Output: Intake and Output for Last 24 Hours 12/28/20 12/29/20 12/30/20 23:59 23:59 23:59 Intake Total 2268 / 2268 1744 / 1864 180 / 180 Output Total 825 / 825 475 / 675 600 / 600 Balance 1443 / 1443 1269 / 1189 -420 / -420 Lab / Micro Data Result Diagrams: 12/30/20 06:16 12/30/20 06:16 Labs: Laboratory Results - last 24 hr 12/30/20 06:16: WBC 11.4 H, RBC 3.62 L, Hgb 12.2 L, Hct 36.1 L, MCV 99.7 H, MCH 33.7 H, MCHC 33.8, RDW Std Deviation 50.1 H, RDW Coeff of Sully 13.7, Plt Count 213, MPV 11.2, Immature Gran % (Auto) 1.500 H, Neut % (Auto) 79.2 H, Lymph % (Auto) 9.1 L, [place] % (Auto) 6.2, Eos % (Auto) 3.6, Baso % (Auto) 0.4, Absolute Neuts (auto) 9.0 H, Absolute Lymphs (auto) 1.03, Nucleated RBC % 0 12/30/20 06:16: Sodium 138, Potassium 3.9, Chloride 107, Carbon Dioxide 24.0, Anion Gap 7, BUN 17, Creatinine 1.02, Estim Creat Clear Calc 61.87, Est GFR (MDRD) Af Amer 93, Est GFR (MDRD) Non-Af 77, BUN/Creatinine Ratio 16.7, Glucose 83, Calcium 8.4 L 12/30/20 06:16: Phosphorus 2.4 L, Magnesium 1.9, Total Bilirubin 0.20, Direct Bilirubin 0.07, AST 27, ALT 21, Alkaline Phosphatase 78, Total Protein 6.3 L, Albumin 1.7 L, Globulin 4.6 H 12/30/20 06:16: Total Creatine Kinase 43 12/30/20 08:10: Phenytoin 3.9 L, Phenobarbital 42.0 H* Micro: Microbiology 12/28/20 13:00 Nasal Secretion SARS-CoV-2 Antigen (Rapid) - Final SARS-CoV-2 (COVID 19) 12/23/20 08:59 Blood Culture (Wb) - Anticubital Left Blood Culture - Final No growth in 5 days. 12/23/20 08:10 Blood Culture (Wb) - Anticubital Left Bacteria Detection (PCR) - Final Coag Negative Staph 12/23/20 08:10 Blood Culture (Wb) - Anticubital Left Blood Culture - Final Coag Negative Staph 12/23/20 08:02 Urine Catheter - Whitaker Urine Culture - Final Escherichia coli Radiography Diagnostic Testing: Radiology Impression Brain CT 12/30/20 07:46 IMPRESSION: Chronic involutional changes of the brain. Electronically Signed: Yonatan Correa MD at 8:56 EDT , Service support , Physical Exam Narrative General: Awake, oriented x3, Cooperative HEENT: Atraumatic, PERRLA, EOMI, Normocephalic Oral: No Gingival or Mucosal Lesions/ Ulcerations Neck: Supple, No JVD, Negative Carotid Bruits Lungs: Air entry diminished in bilateral lung bases. No crepitation/rhonchi Cardiovascular: Regular rate, Regular Rhythm, Normal S1, P2 loud, No murmurs Abdomen: Bowel Sounds Present, Soft, Non Tender, Non-Distended : No renal angle tenderness. No suprapubic tenderness. Extremities: No edema, Capillary Refill Less than 3 Seconds Skin: Multiple subcutaneous nodules all over the body. Mild bruise present on right leg from fall since admission. Healing Musculoskeletal: No Tenderness to Palpation of Joints or Extremities. Mild weakness of both lower extremity muscles at knee and hip joint Neurological: Cranial nerves II-XII grossly intact. DTR 2+. Babinski sign negative. No hypertonia or clonus or muscle rigidity. Psych/Mental Status: Flat affect. Assessment & Plan Assessment/Plan (1) Rhabdomyolysis: (2) Acute UTI: (3) Acute kidney injury: (4) Sepsis: (5) Acute respiratory failure with hypoxia: (6) Pulmonary edema: PLAN: 1. Acute kidney injury, most probably from rhabdomyolysis and septic shock mostly due to UTI: Patient is admitted in ICU. Urine culture shows E. coli 80,000-100,000 colonies. Blood culture coagulase negative staph. Urine output is low, oliguria. On IV ceftriaxone. Patient was on norepinephrine drip last night currently off. 12/27: Patient was transferred to PCU on 12/26. No fever. Patient has coagulase-negative staph, skin contamination. Urine culture also not in pathology cringe but since patient has septic shock he is on ceftriaxone. 12/28: Patient on 6-day of ceftriaxone. Will stop tomorrow. Rapid antigen came positive just before discharge to SNF. PCR is ordered. 12/29: PCR is positive. Patient was a started on dexamethasone yesterday. ID consulted and is out of window for remdesivir. Exact time of onset of cold symptoms unclear patient has chronic shortness of breath and he was found laying on the floor, reason for admission with rhabdomyolysis. Discussed with the case therapist will need SNF with new application for pre-CERT. recommended to isolate for 20 days from 12/28. 12/30: As per nursing staff does not see any tonicoclonic seizure-like movement but patient was generalized shaking. Patient has altered mental status. Concern for nonconvulsive seizure. Phenytoin level 3.9, phenobarbital 42. Serum phosphorus 2.4. Serum magnesium normal. Leukocytosis better. Albumin level 1.7. Dilantin dose increased to 200 mg twice daily from 100 mg 3 times daily. EEG done not read. CT head did not show any acute change. SOC neurology consult order for further opinion. Dilantin has interaction with amiodarone but continued with saturator operator recommendation. Hypophosphatemia, phosphorus replaced. Discussed with the nursing staff. MRI brain ordered 2. Acute hypoxic respiratory failure secondary to pulmonary edema with severe pulmonary hypertension: CT angiogram negative for PE. Since patient had fluid overload and Lasix was given. PT OT and speech evaluation. 2D echo was noted and shows RVSP of 62 mainly consistent with severe pulmonary hypertension. Mild TR and AR. 3. Paroxysmal A. fib with RVR: On IV amiodarone and heparin drip. Patient history of frequent fall with debilitation not good candidate for long-term oral systemic anticoagulant therapy. Patient heparin drip changed to Lovenox. Patient not a good candidate for anticoagulant and is not a good candidate for for NOACs because of strong P glycoprotein inducer as his multiple antiepileptic medications including Dilantin, phenobarbital and primidone. 4. Neurofibromatosis with history of epilepsy: Phenytoin level was normal. Patient on ethosuximide, phenobarbital, primidone and Dilantin. Phenobarbital level is elevated at 44.3. Phenytoin level normal DVT: On Lovenox as mentioned above. Total time of the visit including total time spent in counseling or coordination of care, (more than 50% of the total time, spent in obtaining medical information from nurses and other ancillary care providers,explaining to the patient about labs, imaging, diagnosis and management), discussion with consultants, review of labs and imaging is 30 minutes. Microbiology Past 72 Hours 12/28/20 13:00 Nasal Secretion SARS-CoV-2 Antigen (Rapid) - Final SARS-CoV-2 (COVID 19) 12/23/20 08:59 Blood Culture (Wb) - Anticubital Left Blood Culture - Final No growth in 5 days. 12/23/20 08:10 Blood Culture (Wb) - Anticubital Left Bacteria Detection (PCR) - Final Coag Negative Staph 12/23/20 08:10 Blood Culture (Wb) - Anticubital Left Blood Culture - Final Coag Negative Staph Laboratory Results 12/30/20 06:16: WBC 11.4 H, RBC 3.62 L, Hgb 12.2 L, Hct 36.1 L, MCV 99.7 H, MCH 33.7 H, MCHC 33.8, RDW Std Deviation 50.1 H, RDW Coeff of Sully 13.7, Plt Count 213, MPV 11.2, Immature Gran % (Auto) 1.500 H, Neut % (Auto) 79.2 H, Lymph % (Auto) 9.1 L, [place] % (Auto) 6.2, Eos % (Auto) 3.6, Baso % (Auto) 0.4, Absolute Neuts (auto) 9.0 H, Absolute Lymphs (auto) 1.03, Nucleated RBC % 0 12/30/20 06:16: Sodium 138, Potassium 3.9, Chloride 107, Carbon Dioxide 24.0, Anion Gap 7, BUN 17, Creatinine 1.02, Estim Creat Clear Calc 61.87, Est GFR (MDRD) Af Amer 93, Est GFR (MDRD) Non-Af 77, BUN/Creatinine Ratio 16.7, Glucose 83, Calcium 8.4 L 12/30/20 06:16: Phosphorus 2.4 L, Magnesium 1.9, Total Bilirubin 0.20, Direct Bilirubin 0.07, AST 27, ALT 21, Alkaline Phosphatase 78, Total Protein 6.3 L, Albumin 1.7 L, Globulin 4.6 H 12/30/20 06:16: Total Creatine Kinase 43 12/30/20 08:10: Phenytoin 3.9 L, Phenobarbital 42.0 H* Charges/Coding Visit Charges Inpatient E&M: 83000 Subs Hosp L3
--- NOTE | 2020-12-30 15:17 | CASEMGMT ---
RAMU spoke with Ritesh at [facility] and they do not have beds right now. Ritesh thinks they may have beds at the beginning of next week. RAMU will follow up with her on Saturday. RAMU called patient's sister Criss with updates. Criss continues to call places in the area where she lives. She will continue to work on it over the weekend. RAMU will follow up on Saturday. Toña MARION
[2020-12-30] MEDS: Na Biphos/Potassium Phosphate PACKET 1 PACKET PO ×2 (16:34→21:54)
[2020-12-30] MEDS: Phenytoin Na 100 MG Capsule 200 MG PO (16:34)
[2020-12-30] MEDS: Atorvastatin Calcium 10 MG Tablet 5 MG PO (21:54)
[2020-12-31] VITALS (13 sets, daily range): BP systolic 89–115; BP diastolic 59–74; PULSE 79–94; RESP 16–24; TEMP 36.4–37.1; O2SAT 92–100
[2020-12-31 07:56] LABS: Absolute Lymphocyte Count 1.01 X10^3/uL (0.83-4.51); Absolute Neutrophil Count 6.8 X10^3/uL (2.0-7.7); Basophil# 0.03 X10^3/uL; Basophil% 0.3 % (0-1); Eosinophil# 0.36 X10^3/uL; Eosinophils% 3.9 % (0-5); Hematocrit 30.1 % (40-54); Lymphocyte # 1.01 X10^3/ul (0.83-4.51); Lymphocyte % 10.9 % (19-41); Mean Corp Hgb Conc 33.2 g/dL (32-36); Mean Corpuscular Hgb 33.7 pg (27.0-32.0); Mean Corpuscular Volume 101.3 fL (80-94); Mean Platelet Vol. 10.4 fl (6.2-12.0); Monocyte# 0.94 X10^3/uL; Monocyte% 10.1 % (0-10); NRBC Flagged by Analyzer 0 % (0-5); Neutrophil % 73.4 % (47-70); Platelet Count 187 K/mm3 (150-450); RBC Distribution Width CV 13.8 % (11.6-14.6); RBC Distribution Width SD 51.6 fl (35.1-43.9); Red Blood Count 2.97 M/mm3 (4.6-6.2); White Blood Count 9.3 K/mm3 (4.4-11.0)
[2020-12-31 08:12] LABS: Anion Gap 6 (5-15); BUN 21 mg/dL (7-18); Calcium,Total 7.8 mg/dL (8.5-10.1); Chloride 106 mmol/L (98-107); Creatinine, Serum 1.91 mg/dL (0.70-1.30); EST Glomerular Filtration Rate 37 mL/min (>60); Est Glom Filt Rate - Afr Amer 45 mL/min (>60); Estimated Creatinine Clearance 33.15 ml/min; Glucose 90 mg/dL (74-106); Potassium 3.9 mmol/L (3.5-5.1); Sodium Level 136 mmol/L (136-145)
[2020-12-31] MEDS: dexAMETHasone 4 MG Tablet 6 MG PO (09:45)
[2020-12-31] MEDS: Phenobarbital 32.4 MG Tablet PO ×2 (09:45→22:00)
[2020-12-31] MEDS: Aspirin 81 MG TAB.CHEW PO (09:45)
[2020-12-31] MEDS: Primidone 250 MG Tablet PO ×2 (09:46→22:00)
[2020-12-31] MEDS: Phenytoin Na 100 MG Capsule 200 MG PO ×2 (09:46→17:12)
[2020-12-31] MEDS: ETHOSUXIMIDE 250 MG CAPSULE PO ×2 (09:46→22:00)
[2020-12-31] MEDS: 0.9% Saline Lock 10 ML Syringe IV (09:48)
[2020-12-31] MEDS: Enoxaparin 60 MG/0.6 ML Syringe SC (09:48)
[2020-12-31] MEDS: Lidocaine 5% Patch 1 PATCH TOPICAL (09:52)
[2020-12-31] MEDS: Lactated Ringers 500 ML IV ×2 (09:58→14:11)
--- NOTE | 2020-12-31 13:10 | PN.HOSP_ITS ---
Subjective Subjective Seen and examined. Nurse notified me the patient's blood pressure is on lower side, 89/59. Patient also hemoglobin dropped by 2 g therefore Lovenox discontinued. Patient has A. fib history. Could not tolerate anticoagulant. IV fluids 500 Ringer lactate given blood pressure improved to baseline 93/71. Heart rate 81/min. Patient also evaluated by SOC neurologist. MRI brain was postponed for tomorrow morning as patient blood pressure was low in the morning. Objective Data Objective Data Vital Signs: Vital Signs Temp Pulse Resp BP Pulse Ox 98.0 F 81 16 103/71 96 12/31/20 11:22 12/31/20 11:22 12/31/20 11:22 12/31/20 11:22 12/31/20 11:22 Oxygen Flow Rate (L/min) 2 Oxygen Delivery Method Nasal Cannula Weight: 141 lb 9 oz Body Mass Index (BMI) 20.0 Intake & Output: Intake and Output for Last 24 Hours 12/29/20 12/30/20 12/31/20 23:59 23:59 23:59 Intake Total 1744 / 1864 540 / 780 1100 / 1100 Output Total 475 / 675 600 / 600 250 / 250 Balance 1269 / 1189 -60 / 180 850 / 850 Lab / Micro Data Result Diagrams: 12/31/20 07:32 12/31/20 07:32 Labs: Laboratory Results - last 24 hr 12/31/20 07:32: WBC 9.3, RBC 2.97 L, Hgb 10.0 L, Hct 30.1 L, MCV 101.3 H, MCH 33.7 H, MCHC 33.2, RDW Std Deviation 51.6 H, RDW Coeff of Sully 13.8, Plt Count 187, MPV 10.4, Immature Gran % (Auto) 1.400 H, Neut % (Auto) 73.4 H, Lymph % (Auto) 10.9 L, [place] % (Auto) 10.1 H, Eos % (Auto) 3.9, Baso % (Auto) 0.3, Absolute Neuts (auto) 6.8, Absolute Lymphs (auto) 1.01, Nucleated RBC % 0 12/31/20 07:32: Sodium 136, Potassium 3.9, Chloride 106, Carbon Dioxide 24.0, Anion Gap 6, BUN 21 H, Creatinine 1.91 H, Estim Creat Clear Calc 33.15, Est GFR (MDRD) Af Amer 45 L, Est GFR (MDRD) Non-Af 37 L, BUN/Creatinine Ratio 11.0, Glucose 90, Calcium 7.8 L Micro: Microbiology 12/28/20 13:00 Nasal Secretion SARS-CoV-2 Antigen (Rapid) - Final SARS-CoV-2 (COVID 19) 12/23/20 08:59 Blood Culture (Wb) - Anticubital Left Blood Culture - Final No growth in 5 days. 12/23/20 08:10 Blood Culture (Wb) - Anticubital Left Bacteria Detection (PCR) - Final Coag Negative Staph 12/23/20 08:10 Blood Culture (Wb) - Anticubital Left Blood Culture - Final Coag Negative Staph 12/23/20 08:02 Urine Catheter - Whitaker Urine Culture - Final Escherichia coli Physical Exam Narrative General: Awake, oriented x3, Cooperative HEENT: Atraumatic, PERRLA, EOMI, Normocephalic Oral: No Gingival or Mucosal Lesions/ Ulcerations Neck: Supple, No JVD, Negative Carotid Bruits Lungs: Air entry diminished in bilateral lung bases. No crepitation/rhonchi Cardiovascular: Regular rate, Regular Rhythm, Normal S1, P2 loud, No murmurs Abdomen: No obvious blood/dark stool in the diaper. Bowel Sounds Present, Soft, Non Tender, Non-Distended : Dark-colored urine. No renal angle tenderness. No suprapubic tenderness. Extremities: No edema, Capillary Refill Less than 3 Seconds Skin: Multiple subcutaneous nodules all over the body. Mild bruise present on right leg from fall since admission. Musculoskeletal: No Tenderness to Palpation of Joints or Extremities. Mild weakness of both lower extremity muscles at knee and hip joint Neurological: Cranial nerves II-XII grossly intact. DTR 2+. Babinski sign negative. No hypertonia or clonus or muscle rigidity. Psych/Mental Status: Flat affect. Assessment & Plan Assessment/Plan (1) Rhabdomyolysis: (2) Acute UTI: (3) Acute kidney injury: (4) Sepsis: (5) Acute respiratory failure with hypoxia: (6) Pulmonary edema: PLAN: 1. Acute kidney injury, most probably from rhabdomyolysis and septic shock mostly due to UTI: Patient is admitted in ICU. Urine culture shows E. coli 80,000-100,000 colonies. Blood culture coagulase negative staph. Urine output is low, oliguria. On IV ceftriaxone. Patient was on norepinephrine drip last night currently off. 12/27: Patient was transferred to PCU on 12/26. No fever. Patient has coagulase- negative staph, skin contamination. Urine culture also not in pathology cringe but since patient has septic shock he is on ceftriaxone. 12/28: Patient on 6-day of ceftriaxone. Will stop tomorrow. Rapid antigen came positive just before discharge to SNF. PCR is ordered. 12/29: PCR is positive. Patient was a started on dexamethasone yesterday. ID consulted and is out of window for remdesivir. Exact time of onset of cold symptoms unclear patient has chronic shortness of breath and he was found laying on the floor, reason for admission with rhabdomyolysis. Discussed with the supportive employment case manager will need SNF with new application for pre-CERT. recommended to isolate for 20 days from 12/28. 12/30: As per nursing staff does not see any tonicoclonic seizure-like movement but patient was generalized shaking. Patient has altered mental status. Concern for nonconvulsive seizure. Phenytoin level 3.9, phenobarbital 42. Serum phosphorus 2.4. Serum magnesium normal. Leukocytosis better. Albumin level 1.7. Dilantin dose increased to 200 mg twice daily from 100 mg 3 times daily. EEG done not read. CT head did not show any acute change. SOC neurology consult order for further opinion. Dilantin has interaction with amiodarone but continued with tool procurement coordinator recommendation. Hypophosphatemia, phosphorus replaced. Discussed with the nursing staff. MRI brain ordered 12/31: Hemoglobin dropped to 10 g from 12.2, platelet count 1 87,000. BUN/creatinine elevated 21/1.91 overall it seems the patient might have occult GI bleed, acute anemia from Lovenox but does not require any transfusion. Lovenox discontinued. IV fluid Ringer lactate 500 mL x 2 bolus. MRI postponed for tomorrow. His medications were adjusted as per creatinine clearance SOC neurology consult reviewed and agree with MRI brain. EEG unrevealing. 2. Acute hypoxic respiratory failure secondary to pulmonary edema with severe pulmonary hypertension: CT angiogram negative for PE. Since patient had fluid overload and Lasix was given. PT OT and speech evaluation. 2D echo was noted and shows RVSP of 62 mainly consistent with severe pulmonary hypertension. Mild TR and AR. 3. Paroxysmal A. fib with RVR: On IV amiodarone and heparin drip. Patient history of frequent fall with debilitation not good candidate for long-term oral systemic anticoagulant therapy. Patient heparin drip changed to Lovenox. Patient not a good candidate for anticoagulant and is not a good candidate for for NOACs because of strong P glycoprotein inducer as his multiple antiepileptic medications including Dilantin, phenobarbital and primidone. 4. Neurofibromatosis with history of epilepsy: Phenytoin level was normal. Patient on ethosuximide, phenobarbital, primidone and Dilantin. Phenobarbital level is elevated at 44.3. Phenytoin level normal DVT: On Lovenox as mentioned above. Total time of the visit including total time spent in counseling or coordination of care, (more than 50% of the total time, spent in obtaining medical information from nurses and other ancillary care providers,explaining to the patient about labs, imaging, diagnosis and management), discussion with consultants, review of labs and imaging is 30 minutes. Microbiology Past 72 Hours 12/28/20 13:00 Nasal Secretion SARS-CoV-2 Antigen (Rapid) - Final SARS-CoV-2 (COVID 19) 12/23/20 08:59 Blood Culture (Wb) - Anticubital Left Blood Culture - Final No growth in 5 days. 12/23/20 08:10 Blood Culture (Wb) - Anticubital Left Bacteria Detection (PCR) - Final Coag Negative Staph 12/23/20 08:10 Blood Culture (Wb) - Anticubital Left Blood Culture - Final Coag Negative Staph Laboratory Results 12/30/20 06:16: WBC 11.4 H, RBC 3.62 L, Hgb 12.2 L, Hct 36.1 L, MCV 99.7 H, MCH 33.7 H, MCHC 33.8, RDW Std Deviation 50.1 H, RDW Coeff of Sully 13.7, Plt Count 213, MPV 11.2, Immature Gran % (Auto) 1.500 H, Neut % (Auto) 79.2 H, Lymph % (Auto) 9.1 L, [place] % (Auto) 6.2, Eos % (Auto) 3.6, Baso % (Auto) 0.4, Absolute Neuts (auto) 9.0 H, Absolute Lymphs (auto) 1.03, Nucleated RBC % 0 12/30/20 06:16: Sodium 138, Potassium 3.9, Chloride 107, Carbon Dioxide 24.0, Anion Gap 7, BUN 17, Creatinine 1.02, Estim Creat Clear Calc 61.87, Est GFR (MDRD) Af Amer 93, Est GFR (MDRD) Non-Af 77, BUN/Creatinine Ratio 16.7, Glucose 83, Calcium 8.4 L 12/30/20 06:16: Phosphorus 2.4 L, Magnesium 1.9, Total Bilirubin 0.20, Direct Bilirubin 0.07, AST 27, ALT 21, Alkaline Phosphatase 78, Total Protein 6.3 L, Albumin 1.7 L, Globulin 4.6 H 12/30/20 06:16: Total Creatine Kinase 43 12/30/20 08:10: Phenytoin 3.9 L, Phenobarbital 42.0 H* Charges/Coding Visit Charges Inpatient E&M: 95459 Subs Hosp L3
[2020-12-31] MEDS: Na Biphos/Potassium Phosphate PACKET 1 PACKET PO ×2 (14:12→22:00)
[2020-12-31] MEDS: Atorvastatin Calcium 10 MG Tablet 5 MG PO (22:00)
[2021-01-01] VITALS (11 sets, daily range): BP systolic 90–110; BP diastolic 55–70; PULSE 77–96; RESP 12–18; TEMP 36.6–38; O2SAT 93–98
[2021-01-01] MEDS: Na Biphos/Potassium Phosphate PACKET 1 PACKET PO ×3 (05:39→20:57)
[2021-01-01] MEDS: Acetaminophen 325 MG Tablet 650 MG PO ×2 (05:40→21:12)
[2021-01-01 07:38] LABS: Absolute Lymphocyte Count 0.82 X10^3/uL (0.83-4.51); Absolute Neutrophil Count 12.4 X10^3/uL (2.0-7.7); Basophil# 0.03 X10^3/uL; Basophil% 0.2 % (0-1); Eosinophils% 1.4 % (0-5); Hematocrit 30.6 % (40-54); Hemoglobin 10.2 g/dL (13.0-16.5); Lymphocyte # 0.82 X10^3/ul (0.83-4.51); Lymphocyte % 5.6 % (19-41); Mean Corp Hgb Conc 33.3 g/dL (32-36); Mean Corpuscular Hgb 33.8 pg (27.0-32.0); Mean Corpuscular Volume 101.3 fL (80-94); Mean Platelet Vol. 10.7 fl (6.2-12.0); Monocyte# 0.95 X10^3/uL; Monocyte% 6.5 % (0-10); NRBC Flagged by Analyzer 0 % (0-5); Neutrophil # 12.36 X10^3/uL (2.7-7.7); Neutrophil % 85.1 % (47-70); Platelet Count 227 K/mm3 (150-450); RBC Distribution Width CV 13.7 % (11.6-14.6); RBC Distribution Width SD 51.1 fl (35.1-43.9); Red Blood Count 3.02 M/mm3 (4.6-6.2); White Blood Count 14.5 K/mm3 (4.4-11.0)
[2021-01-01 08:26] LABS: Anion Gap 8 (5-15); BUN 28 mg/dL (7-18); BUN/Creat Ratio 8.7 RATIO (10-20); Chloride 104 mmol/L (98-107); Creatinine, Serum 3.23 mg/dL (0.70-1.30); EST Glomerular Filtration Rate 20 mL/min (>60); Est Glom Filt Rate - Afr Amer 25 mL/min (>60); Estimated Creatinine Clearance 20.18 ml/min; Glucose 85 mg/dL (74-106); Magnesium 1.6 mg/dL (1.6-2.6); Sodium Level 136 mmol/L (136-145)
--- NOTE | 2021-01-01 09:12 | MRI_ITS ---
STUDY: MRI BRAIN WITHOUT CONTRAST REASON FOR EXAM: Male, 70 years old. seizure -- shaking, ams TECHNIQUE: Standardized multiplanar fat and water weighted pulse sequences were obtained. COMPARISON: 12/30/2020 CT of the head FINDINGS: There is mild cerebral atrophy with widening of the extra-axial spaces and ventricular dilatation. There are multiple white matter hyperintensities, distributed throughout the deep white matter tracts of the cerebral hemispheres, consistent with mild chronic white matter ischemic changes. Normal bilateral basal ganglia. Normal thalami. There is no extra-axial fluid accumulation. Normal sella turcica, pituitary gland, infundibular stalk, optic chiasm and hypothalamus. Normal tectal plate and pineal gland. Normal midbrain, latanya and medulla. Normal cerebellum. Numerous small soft tissue nodules are once again seen overlying the skull. MRI/Brain without Contrast IMPRESSION: No acute intracranial abnormality. Electronically Signed: Nehemiah Orellana MD at 14:39 EST Tel , Service support ,
[2021-01-01] MEDS: Lidocaine 5% Patch 1 PATCH TOPICAL (09:29)
[2021-01-01] MEDS: dexAMETHasone 4 MG Tablet 6 MG PO (09:29)
[2021-01-01] MEDS: Phenobarbital 32.4 MG Tablet PO ×2 (09:29→20:58)
[2021-01-01] MEDS: Primidone 250 MG Tablet PO ×2 (09:29→20:57)
[2021-01-01] MEDS: ETHOSUXIMIDE 250 MG CAPSULE PO ×2 (09:29→20:58)
[2021-01-01] MEDS: Phenytoin Na 100 MG Capsule 200 MG PO ×2 (09:30→16:59)
--- NOTE | 2021-01-01 12:16 | NURSING ---
[facility] late due to pt off floor for MRI
--- NOTE | 2021-01-01 12:21 | PN.HOSP_ITS ---
Subjective Subjective No fever. Patient having loose bowel movement. Urine is clear. Blood pressure in low 100s/90s but no objective signs and symptoms of hypotension. Patient creatinine and BUN increased. [employer] Hand Engraver consult requested. No obvious change in medication. UA with urine culture, urine lites and urine protein ordered although patient denies any burning micturition Objective Data Objective Data Vital Signs: Vital Signs Temp Pulse Resp BP Pulse Ox 97.9 F 77 12 97/57 L 98 01/01/21 11:45 01/01/21 11:45 01/01/21 11:45 01/01/21 11:45 01/01/21 11:45 Oxygen Flow Rate (L/min) 2 Oxygen Delivery Method Nasal Cannula Weight: 145 lb 15.136 oz Body Mass Index (BMI) 20.0 Intake & Output: Intake and Output for Last 24 Hours 12/30/20 12/31/20 01/01/21 23:59 23:59 22:59 Intake Total 540 / 780 1800 / 1860 360 / 360 Output Total 600 / 600 500 / 650 400 / 400 Balance -60 / 180 1300 / 1210 -40 / -40 Lab / Micro Data Result Diagrams: 01/01/21 05:24 01/01/21 05:24 Labs: Laboratory Results - last 24 hr 01/01/21 05:17: Phosphorus 3.0 01/01/21 05:24: WBC 14.5 H, RBC 3.02 L, Hgb 10.2 L, Hct 30.6 L, MCV 101.3 H, MCH 33.8 H, MCHC 33.3, RDW Std Deviation 51.1 H, RDW Coeff of Sully 13.7, Plt Count 227, MPV 10.7, Immature Gran % (Auto) 1.200 H, Neut % (Auto) 85.1 H, Lymph % (Auto) 5.6 L, Knox % (Auto) 6.5, Eos % (Auto) 1.4, Baso % (Auto) 0.2, Absolute Neuts (auto) 12.4 H, Absolute Lymphs (auto) 0.82 L, Nucleated RBC % 0 01/01/21 05:24: Sodium 136, Potassium 4.0, Chloride 104, Carbon Dioxide 24.0, Anion Gap 8, BUN 28 H, Creatinine 3.23 H, Estim Creat Clear Calc 20.18, Est GFR (MDRD) Af Amer 25 L, Est GFR (MDRD) Non-Af 20 L, BUN/Creatinine Ratio 8.7 L, Glucose 85, Calcium 8.0 L, Magnesium 1.6 Micro: Microbiology 12/31/20 22:27 Stool Stool Occult Blood (PRIMITIVO) - Final 12/28/20 13:00 Nasal Secretion SARS-CoV-2 Antigen (Rapid) - Final SARS-CoV-2 (COVID 19) 12/23/20 08:59 Blood Culture (Wb) - Anticubital Left Blood Culture - Final No growth in 5 days. 12/23/20 08:10 Blood Culture (Wb) - Anticubital Left Bacteria Detection (PCR) - Final Coag Negative Staph 12/23/20 08:10 Blood Culture (Wb) - Anticubital Left Blood Culture - Final Coag Negative Staph 12/23/20 08:02 Urine Catheter - Whitaker Urine Culture - Final Escherichia coli Physical Exam Narrative General: Awake, oriented x3, Cooperative HEENT: Atraumatic, PERRLA, EOMI, Normocephalic Oral: No Gingival or Mucosal Lesions/ Ulcerations Neck: Supple, No JVD, Negative Carotid Bruits Lungs: Air entry diminished in bilateral lung bases. No crepitation/rhonchi Cardiovascular: Regular rate, Regular Rhythm, Normal S1, P2 loud, No murmurs Abdomen: Loose stool yellow in color. No blood. Bowel Sounds Present, Soft, Non Tender, Non-Distended : Clear urine. No renal angle tenderness. No suprapubic tenderness. Extremities: No edema, Capillary Refill Less than 3 Seconds Skin: Multiple subcutaneous nodules all over the body. Mild bruise present on right leg from fall since admission. Musculoskeletal: No Tenderness to Palpation of Joints or Extremities. Mild weakness of both lower extremity muscles at knee and hip joint Neurological: Cranial nerves II-XII grossly intact. DTR 2+. Babinski sign negative. No hypertonia or clonus or muscle rigidity. Psych/Mental Status: Flat affect. Assessment & Plan Assessment/Plan (1) Rhabdomyolysis: (2) Acute UTI: (3) Acute kidney injury: (4) Sepsis: (5) Acute respiratory failure with hypoxia: (6) Pulmonary edema: PLAN: 1. Acute kidney injury, most probably from rhabdomyolysis and septic shock mostly due to UTI: Patient is admitted in ICU. Urine culture shows E. coli 80,000-100,000 colonies. Blood culture coagulase negative staph. Urine output is low, oliguria. On IV ceftriaxone. Patient was on norepinephrine drip last night currently off. 12/27: Patient was transferred to PCU on 12/26. No fever. Patient has coagulase- negative staph, skin contamination. Urine culture also not in pathology cringe but since patient has septic shock he is on ceftriaxone. 12/28: Patient on 6-day of ceftriaxone. Will stop tomorrow. Rapid antigen came positive just before discharge to SNF. PCR is ordered. 12/29: PCR is positive. Patient was a started on dexamethasone yesterday. ID consulted and is out of window for remdesivir. Exact time of onset of cold symptoms unclear patient has chronic shortness of breath and he was found laying on the floor, reason for admission with rhabdomyolysis. Discussed with the medical case manager will need SNF with new application for pre-CERT. recommended to isolate for 20 days from 12/28. 12/30: As per nursing staff does not see any tonicoclonic seizure-like movement but patient was generalized shaking. Patient has altered mental status. Concern for nonconvulsive seizure. Phenytoin level 3.9, phenobarbital 42. Serum phosphorus 2.4. Serum magnesium normal. Leukocytosis better. Albumin level 1.7. Dilantin dose increased to 200 mg twice daily from 100 mg 3 times daily. EEG done not read. CT head did not show any acute change. SOC neurology consult order for further opinion. Dilantin has interaction with amiodarone but continued with call center coordinator recommendation. Hypophosphatemia, phosphorus replaced. Discussed with the nursing staff. MRI brain ordered 12/31: Hemoglobin dropped to 10 g from 12.2, platelet count 1 87,000. BUN/creatinine elevated 21/1.91 overall it seems the patient might have occult GI bleed, acute anemia from Lovenox but does not require any transfusion. Lovenox discontinued. IV fluid Ringer lactate 500 mL x 2 bolus. MRI postponed for tomorrow. His medications were adjusted as per creatinine clearance SOC neurology consult reviewed and agree with MRI brain. EEG unrevealing. 01/01: Hemoglobin is stable at 10.2. Stool for occult blood negative. MRI done. Report pending. Leukocytosis. One-time temperature 100.4 ?F. Monitor clinically. If patient spikes again will send blood culture. 2. Acute kidney injury on CKD stage IIIa: Patient creatinine was 1.01 on baseline increased to 1.91 on 12/31 and 3.23 on 01/01. BUN elevated. Probably prerenal from occult GI bleed or loose stool although stool for occult blood is negative. IV fluid Ringer lactate. Electrolytes in normal range. [employer] Hand Engraver consult requested. Urine lites ordered. Does not have burning micturition or symptoms of UTI Acute hypoxic respiratory failure secondary to pulmonary edema with severe pulmonary hypertension: CT angiogram negative for PE. Since patient had fluid overload and Lasix was given. PT OT and speech evaluation. 2D echo was noted and shows RVSP of 62 mainly consistent with severe pulmonary hypertension. Mild TR and AR. 3. Paroxysmal A. fib with RVR: On IV amiodarone and heparin drip. Patient history of frequent fall with debilitation not good candidate for long-term oral systemic anticoagulant therapy. Patient heparin drip changed to Lovenox. Patient not a good candidate for anticoagulant and is not a good candidate for for NOACs because of strong P glycoprotein inducer as his multiple antiepileptic medications including Dilantin, phenobarbital and primidone. 4. Neurofibromatosis with history of epilepsy: Phenytoin level was normal. Patient on ethosuximide, phenobarbital, primidone and Dilantin. Phenobarbital level is elevated at 44.3. Phenytoin level normal DVT: On Lovenox as mentioned above. Total time of the visit including total time spent in counseling or coordination of care, (more than 50% of the total time, spent in obtaining medical information from nurses and other ancillary care providers,explaining to the patient about labs, imaging, diagnosis and management), discussion with consulta nts, review of labs and imaging is 30 minutes. Microbiology Past 72 Hours 12/31/20 22:27 Stool Stool Occult Blood (PRIMITIVO) - Final Laboratory Results 01/01/21 05:17: Phosphorus 3.0 01/01/21 05:24: WBC 14.5 H, RBC 3.02 L, Hgb 10.2 L, Hct 30.6 L, MCV 101.3 H, MCH 33.8 H, MCHC 33.3, RDW Std Deviation 51.1 H, RDW Coeff of Sully 13.7, Plt Count 227, MPV 10.7, Immature Gran % (Auto) 1.200 H, Neut % (Auto) 85.1 H, Lymph % (Auto) 5.6 L, Knox % (Auto) 6.5, Eos % (Auto) 1.4, Baso % (Auto) 0.2, Absolute Neuts (auto) 12.4 H, Absolute Lymphs (auto) 0.82 L, Nucleated RBC % 0 01/01/21 05:24: Sodium 136, Potassium 4.0, Chloride 104, Carbon Dioxide 24.0, Anion Gap 8, BUN 28 H, Creatinine 3.23 H, Estim Creat Clear Calc 20.18, Est GFR (MDRD) Af Amer 25 L, Est GFR (MDRD) Non-Af 20 L, BUN/Creatinine Ratio 8.7 L, Glucose 85, Calcium 8.0 L, Magnesium 1.6 Charges/Coding Visit Charges Inpatient E&M: 36455 Subs Hosp L2
[2021-01-01] MEDS: Lactated Ringers 1,000 ML 100 ML IV ×2 (15:07→23:49)
[2021-01-01 15:35] LABS: Mucous, Urine 0 SEEN /hpf (<or=2+)
[2021-01-01 15:38] LABS: Color, Urine Yellow (Yellow); Glucose, Dipstick Normal (Normal); Ketone-Dipstick Negative (Negative); Leukocyte Esterase-Dipstick 500 /ul (Negative); Nitrite-Dipstick Negative (Negative); Occult Blood-Urine 25 /ul (Negative); Protein-Dipstick 15 mg/dl (Negative); Urine Bilirubin Dipstick Negative (Negative); Urine Clarity Cloudy (Clear); Urine Urobilinogen Normal (Normal)
[2021-01-01 15:59] LABS: Red Blood Cells-Urine 0-5 SEEN /hpf (0-5); White Blood Cells 50-100 SEEN /hpf (0-5)
[2021-01-01 16:00] LABS: Bacteria 1+ /hpf (None Seen); Squamous Epithelial Cells - UA 5-10 SEEN /hpf (0-5)
[2021-01-01 16:31] LABS: Protein, Urine (Random) 25.8 mg/dL (<11.9); Protein:Creat Ratio 398 mg/g CRE (0-200); Urine Chloride 31 mmol/L (Not Establ.); Urine Sodium 32 mmol/L (Not Establ.)
[2021-01-01] MEDS: Atorvastatin Calcium 10 MG Tablet 5 MG PO (20:58)
[2021-01-02] VITALS (11 sets, daily range): BP systolic 94–102; BP diastolic 54–84; PULSE 82–104; RESP 12–18; TEMP 36.8–38.1; O2SAT 95–100
[2021-01-02] MEDS: Na Biphos/Potassium Phosphate PACKET 1 PACKET PO ×2 (05:17→13:42)
[2021-01-02 05:35] LABS: Absolute Lymphocyte Count 1.07 X10^3/uL (0.83-4.51); Absolute Neutrophil Count 10.1 X10^3/uL (2.0-7.7); Basophil# 0.05 X10^3/uL; Basophil% 0.4 % (0-1); Eosinophil# 0.19 X10^3/uL; Eosinophils% 1.5 % (0-5); Hematocrit 30.6 % (40-54); Lymphocyte # 1.07 X10^3/ul (0.83-4.51); Lymphocyte % 8.6 % (19-41); Mean Corp Hgb Conc 32.7 g/dL (32-36); Mean Corpuscular Hgb 33.3 pg (27.0-32.0); Mean Platelet Vol. 10.1 fl (6.2-12.0); Monocyte% 6.5 % (0-10); NRBC Flagged by Analyzer 0 % (0-5); Neutrophil # 10.14 X10^3/uL (2.7-7.7); Neutrophil % 81.8 % (47-70); Platelet Count 234 K/mm3 (150-450); RBC Distribution Width CV 13.8 % (11.6-14.6); RBC Distribution Width SD 52.2 fl (35.1-43.9); White Blood Count 12.4 K/mm3 (4.4-11.0)
[2021-01-02 05:59] LABS: Anion Gap 8 (5-15); BUN 33 mg/dL (7-18); BUN/Creat Ratio 8.1 RATIO (10-20); Calcium,Total 7.7 mg/dL (8.5-10.1); Chloride 104 mmol/L (98-107); Creatinine, Serum 4.07 mg/dL (0.70-1.30); EST Glomerular Filtration Rate 16 mL/min (>60); Est Glom Filt Rate - Afr Amer 19 mL/min (>60); Estimated Creatinine Clearance 16.02 ml/min; Glucose 82 mg/dL (74-106); Potassium 4.4 mmol/L (3.5-5.1); Sodium Level 136 mmol/L (136-145)
[2021-01-02] MEDS: Phenobarbital 32.4 MG Tablet PO ×2 (09:23→20:56)
[2021-01-02] MEDS: Primidone 250 MG Tablet PO ×2 (09:23→20:57)
[2021-01-02] MEDS: Phenytoin Na 100 MG Capsule 200 MG PO ×2 (09:23→16:41)
[2021-01-02] MEDS: Lidocaine 5% Patch 1 PATCH TOPICAL (09:23)
[2021-01-02] MEDS: ETHOSUXIMIDE 250 MG CAPSULE PO ×2 (09:23→20:59)
[2021-01-02] MEDS: dexAMETHasone 4 MG Tablet 6 MG PO (09:23)
--- NOTE | 2021-01-02 09:41 | CON.PCM.RE_ITS ---
Assessment & Plan Assessment/Plan (1) Acute kidney injury: PLAN: normal baseline SCr UA showed UTIs Doubt rhabdo is contributing to his ARTURO ARTURO is likely from urinary obstruction due to DERAS Will place puente cath Continue IVF No need for TUTORIAL LABORATORY SUPERVISOR Check RFP in am thank you HPI Consult Data Date of Consult: 01/02/21 HPI Narrative HPI Narrative: SABA DOMINGUEZ, is a 70 M who presents with multiple falls. he called EMS because he was not able to get up. In ED he was found to have UTI with septic shock. patient was admitted to ICU. treated with Ceftriaxone. patient also had mild rbabdo. patient improved and moved to regular floor. Patient then was found to have COVID-19 +. On 3 L has cough renal is consulted for ARTURO. Patient had CTA on 12/24. bladder scan is 780 this am has mild diarrhea about 3 times daily No NSAIDs use ROS: 12 systems review is negative except some SOB, cough PFSH Medical History Atrial fibrillation and flutter COVID-19 High cholesterol Migraines Neurofibromatosis Neurofibromatosis Seizures Home Medications ethosuximide [Zarontin] 250 mg PO BID 03/09/13 [History Last Taken 12/21/20] phenytoin sodium extended 100 mg PO TID 03/09/13 [History Last Taken 12/21/20] primidone 250 mg PO BID 03/09/13 [History Last Taken 12/21/20] fluticasone propionate 1 spray INTRANASAL DAILY 12/23/20 [History Last Taken 12/21/20] latanoprost 1 drp EACH EYE DAILY 12/23/20 [History Last Taken 12/21/20] simvastatin 10 mg PO QHS 12/23/20 [History Last Taken 12/20/20] vit D3-folic [id number] 1 tab PO DAILY 12/23/20 [History Last Taken 12/21/20] amiodarone 200 mg PO BID #0 tab 12/28/20 [Rx Last Taken Unknown] phenobarbital 32.4 mg PO BID #0 tab 12/28/20 [Rx Last Taken 12/20/20] Allergy/AdvReac Type Severity Reaction Status Date / Time No Known Allergies Allergy Verified 12/23/20 07:49 Family History (Updated 12/23/20 @ 18:[address] Chase Bruno MD) Other CVA (cerebral vascular accident) Surgical History no surgical history Social History (Updated 12/23/20 @ 07:[address] Claude Wilkes DO) Smoking Status: Former smoker substance use type: does not use Physical Exam Narrative awake alert oriented No JVD Heart s1 /s2 rrr Chest CTA Abdo: s0ft + BS no tenderness ext no edema [id number] no focal Lab / Micro Data Result Diagrams: 01/02/21 04:50 01/02/21 04:50 Labs: Laboratory Results - last 24 hr 01/01/21 05:17: Phosphorus 3.0 01/01/21 15:20: Urine Color Yellow, Urine Clarity Cloudy, Urine pH 6.0, Ur Specific Mcclellan 1.010, Urine Protein 15 H, Urine Glucose (UA) Normal, Urine Ketones Negative, Urine Occult Blood 25 H, Urine Nitrite Negative, Urine Bilirubin Negative, Urine Urobilinogen Normal, Ur Leukocyte Esterase 500 H, Urine RBC 0-5 SEEN, Urine WBC 50-100 SEEN, Ur Squamous Epith Cells 5-10 SEEN, Ur ine Bacteria 1+, Urine Mucus 0 SEEN 01/01/21 15:20: U Random Total Protein 25.8 H, Ur Random Sodium 32, Urine Creatinine 64.90, Protein/Creatinin Ratio 398 H, Urine Potassium 19.0, Urine Chloride 31 01/02/21 04:50: WBC 12.4 H, RBC 3.00 L, Hgb 10.0 L, Hct 30.6 L, MCV 102.0 H, MCH 33.3 H, MCHC 32.7, RDW Std Deviation 52.2 H, RDW Coeff of Sully 13.8, Plt Count 234, MPV 10.1, Immature Gran % (Auto) 1.200 H, Neut % (Auto) 81.8 H, Lymph % (Auto) 8.6 L, Phillips % (Auto) 6.5, Eos % (Auto) 1.5, Baso % (Auto) 0.4, Absolute Neuts (auto) 10.1 H, Absolute Lymphs (auto) 1.07, Nucleated RBC % 0 01/02/21 04:50: Sodium 136, Potassium 4.4, Chloride 104, Carbon Dioxide 24.0, Anion Gap 8, BUN 33 H, Creatinine 4.07 H, Estim Creat Clear Calc 16.02, Est GFR (MDRD) Af Amer 19 L, Est GFR (MDRD) Non-Af 16 L, BUN/Creatinine Ratio 8.1 L, Glucose 82, Calcium 7.7 L Radiology Impression Brain MRI 01/01/21 09:12 IMPRESSION: No acute intracranial abnormality. Electronically Signed: Nehemiah Orellana MD at 14:39 EST Tel , Service support ,
--- NOTE | 2021-01-02 11:46 | CASEMGMT ---
RAMU returned a phone call from patient's brother Shayne. Shayne said he and his family have not had any luck finding a facility that is accepting positive COVID patients. They continue to call places. Shayne said [facility] and [facility] are not options as they get 1 and 2 star ratings. RAMU let Shayne know that if there are no other facilities available and patient is ready for discharge patient may have to go to [facility] or [facility]. They could then move him to a different facility when he is 10 days out from his positive test. Shayne said the patient advocate told him that as long as they are actively looking for places [facility] will not force family to send patient to a place they are uncomfortable with. He asked to check with [facility] again. RAMU called [facility] and spoke with Allegra in admissions. She said they only have a few beds set aside for positive COVID patients. They remain full and no anticipated openings. Toña Carrasquillo [employer]OMOTIONS MANAGER SANAM
--- NOTE | 2021-01-02 14:53 | PCM.PN.HOSP ---
Subjective Subjective Patient creatinine further went up. Seen by ice skating coach and discussed with him. Although patient denies he has mild short of breath and sometimes intermittent cough. There is urine retention. Patient had Whitaker and had 1000 mL urine output. Objective Data Objective Data Vital Signs: Vital Signs Temp Pulse Resp BP Pulse Ox 98.3 F 86 16 94/69 98 01/02/21 13:46 01/02/21 13:46 01/02/21 13:46 01/02/21 13:46 01/02/21 13:46 Oxygen Flow Rate (L/min) 2 Oxygen Delivery Method Nasal Cannula Weight: 144 lb 9.972 oz Body Mass Index (BMI) 20.0 Intake & Output: Intake and Output for Last 24 Hours 01/01/21 01/01/21 01/02/21 00:59 23:59 23:59 Intake Total 1360 / 1360 Output Total 1000 / 1000 Balance 360 / 360 Lab / Micro Data Result Diagrams: 01/02/21 04:50 01/02/21 04:50 Labs: Laboratory Results - last 24 hr 01/01/21 15:20: Urine Color Yellow, Urine Clarity Cloudy, Urine pH 6.0, Ur Specific Rice 1.010, Urine Protein 15 H, Urine Glucose (UA) Normal, Urine Ketones Negative, Urine Occult Blood 25 H, Urine Nitrite Negative, Urine Bilirubin Negative, Urine Urobilinogen Normal, Ur Leukocyte Esterase 500 H, Urine RBC 0-5 SEEN, Urine WBC 50-100 SEEN, Ur Squamous Epith Cells 5-10 SEEN, Urine Bacteria 1+, Urine Mucus 0 SEEN 01/01/21 15:20: U Random Total Protein 25.8 H, Ur Random Sodium 32, Urine Creatinine 64.90, Protein/Creatinin Ratio 398 H, Urine Potassium 19.0, Urine Chloride 31 01/02/21 04:50: WBC 12.4 H, RBC 3.00 L, Hgb 10.0 L, Hct 30.6 L, MCV 102.0 H, MCH 33.3 H, MCHC 32.7, RDW Std Deviation 52.2 H, RDW Coeff of Sully 13.8, Plt Count 234, MPV 10.1, Immature Gran % (Auto) 1.200 H, Neut % (Auto) 81.8 H, Lymph % (Auto) 8.6 L, [place] % (Auto) 6.5, Eos % (Auto) 1.5, Baso % (Auto) 0.4, Absolute Neuts (auto) 10.1 H, Absolute Lymphs (auto) 1.07, Nucleated RBC % 0 01/02/21 04:50: Sodium 136, Potassium 4.4, Chloride 104, Carbon Dioxide 24.0, Anion Gap 8, BUN 33 H, Creatinine 4.07 H, Estim Creat Clear Calc 16.02, Est GFR (MDRD) Af Amer 19 L, Est GFR (MDRD) Non-Af 16 L, BUN/Creatinine Ratio 8.1 L, Glucose 82, Calcium 7.7 L Micro: Microbiology 12/31/20 22:27 Stool Stool Occult Blood (PRIMITIVO) - Final 12/28/20 13:00 Nasal Secretion SARS-CoV-2 Antigen (Rapid) - Final SARS-CoV-2 (COVID 19) 12/23/20 08:59 Blood Culture (Wb) - Anticubital Left Blood Culture - Final No growth in 5 days. 12/23/20 08:10 Blood Culture (Wb) - Anticubital Left Bacteria Detection (PCR) - Final Coag Negative Staph 12/23/20 08:10 Blood Culture (Wb) - Anticubital Left Blood Culture - Final Coag Negative Staph 12/23/20 08:02 Urine Catheter - Whitaker Urine Culture - Final Escherichia coli Physical Exam Narrative General: Awake, oriented x3, Cooperative HEENT: Atraumatic, PERRLA, EOMI, Normocephalic Oral: No Gingival or Mucosal Lesions/ Ulcerations Neck: Supple, No JVD, Negative Carotid Bruits Lungs: Air entry diminished in bilateral lung bases. No crepitation/rhonchi Cardiovascular: Regular rate, Regular Rhythm, Normal S1, P2 loud, No murmurs, BP on lower side Abdomen: Loose stool, diarrhea. No blood. Bowel Sounds Present, Soft, Non Tender, Non-Distended : Whitaker catheter is in. 1000 mL urine output quickly. No renal angle tenderness. No suprapubic tenderness. Extremities: No edema, Capillary Refill Less than 3 Seconds Skin: Multiple subcutaneous nodules all over the body. Mild bruise present on right leg from fall since admission. Musculoskeletal: No Tenderness to Palpation of Joints or Extremities. Mild weakness of both lower extremity muscles at knee and hip joint Neurological: Cranial nerves II-XII grossly intact. DTR 2+. Babinski sign negative. No hypertonia or clonus or muscle rigidity. Psych/Mental Status: Flat affect. Assessment & Plan Assessment/Plan (1) Rhabdomyolysis: (2) Acute UTI: (3) Acute kidney injury: (4) Sepsis: (5) Acute respiratory failure with hypoxia: (6) Pulmonary edema: PLAN: 1. Acute kidney injury, most probably from rhabdomyolysis and septic shock mostly due to UTI: Patient is admitted in ICU. Urine culture shows E. coli 80,000-100,000 colonies. Blood culture coagulase negative staph. Urine output is low, oliguria. On IV ceftriaxone. Patient was on norepinephrine drip last night, 12/25 currently off. 12/27: Patient was transferred to PCU on 12/26. No fever. Patient has coagulase-negative staph, skin contamination. Urine culture also not in pathology cringe but since patient has septic shock he is on ceftriaxone. 12/28: Patient on 6-day of ceftriaxone. Will stop tomorrow. Rapid antigen came positive just before discharge to SNF. PCR is ordered. 12/29: PCR is positive. Patient was a started on dexamethasone yesterday. ID consulted and is out of window for remdesivir. Exact time of onset of cold symptoms unclear patient has chronic shortness of breath and he was found laying on the floor, reason for admission with rhabdomyolysis. Discussed with the major case detective will need SNF with new application for pre-CERT. recommended to isolate for 20 days from 12/28. 12/30: As per nursing staff does not see any tonicoclonic seizure-like movement but patient was generalized shaking. Patient has altered mental status. Concern for nonconvulsive seizure. Phenytoin level 3.9, phenobarbital 42. Serum phosphorus 2.4. Serum magnesium normal. Leukocytosis better. Albumin level 1.7. Dilantin dose increased to 200 mg twice daily from 100 mg 3 times daily. EEG done not read. CT head did not show any acute change. SOC neurology consult order for further opinion. Dilantin has interaction with amiodarone but continued with tso recommendation. Hypophosphatemia, phosphorus replaced. Discussed with the nursing staff. MRI brain ordered 12/31: Hemoglobin dropped to 10 g from 12.2, platelet count 1 87,000. BUN/creatinine elevated 21/1.91 overall it seems the patient might have occult GI bleed, acute anemia from Lovenox but does not require any transfusion. Lovenox discontinued. IV fluid Ringer lactate 500 mL x 2 bolus. MRI postponed for tomorrow. His medications were adjusted as per creatinine clearance SOC neurology consult reviewed and agree with MRI brain. EEG unrevealing. 01/01: Hemoglobin is stable at 10.2. Stool for occult blood negative. MRI done. Report pending. Leukocytosis. One-time temperature 100.4 ?F. Monitor clinically. If patient spikes again will send blood culture. 01/02: MRI reported no acute intracranial abnormality. Hemoglobin is stable. 2. Acute kidney injury on CKD stage IIIa: Patient creatinine was 1.01 on baseline increased to 1.91 on 12/31 and 3.23 on 01/01. BUN elevated. Probably prerenal from occult GI bleed or loose stool although stool for occult blood is negative. IV fluid Ringer lactate. Electrolytes in normal range. Mathematical Engineer consult requested. Urine lites ordered. Does not have burning micturition or symptoms of UTI 01/02: ARTURO most likely due to urine retention/bladder outlet obstruction. Whitaker catheterization. Continue IV fluid support. No need for [employer]. UA positive for mild pyuria/LE but patient does not have burning micturition. Patient had antibiotic from 12/24-12/29 and I do not think patient has current indication for antibiotic Acute hypoxic respiratory failure secondary to pulmonary edema with severe pulmonary hypertension: CT angiogram negative for PE. Since patient had fluid overload and Lasix was given. PT OT and speech evaluation. 2D echo was noted and shows RVSP of 62 mainly consistent with severe pulmonary hypertension. Mild TR and AR. 3. Paroxysmal A. fib with RVR: On IV amiodarone and heparin drip. Patient history of frequent fall with debilitation not good candidate for long-term oral systemic anticoagulant therapy. Patient heparin drip changed to Lovenox. Patient not a good candidate for anticoagulant and is not a good candidate for for NOACs because of strong P glycoprotein inducer as his multiple antiepileptic medications including Dilantin, phenobarbital and primidone. 4. Neurofibromatosis with history of epilepsy: Phenytoin level was normal. Patient on ethosuximide, phenobarbital, primidone and Dilantin. Phenobarbital level is elevated at 44.3. Phenytoin level normal DVT: On Lovenox as mentioned above. Total time of the visit including total time spent in counseling or coordination of care, (more than 50% of the total time, spent in obtaining medical information from nurses and other ancillary care providers,explaining to the patient about labs, imaging, diagnosis and management), discussion with consultants, review of labs and imaging is 30 minutes. Microbiology Past 72 Hours 12/31/20 22:27 Stool Stool Occult Blood (PRIMITIVO) - Final Laboratory Results 01/01/21 15:20: Urine Color Yellow, Urine Clarity Cloudy, Urine pH 6.0, Ur Specific Rice 1.010, Urine Protein 15 H, Urine Glucose (UA) Normal, Urine Ketones Negative, Urine Occult Blood 25 H, Urine Nitrite Negative, Urine Bilirubin Negative, Urine Urobilinogen Normal, Ur Leukocyte Esterase 500 H, Urine RBC 0-5 SEEN, Urine WBC 50-100 SEEN, Ur Squamous Epith Cells 5-10 SEEN, Urine Bacteria 1+, Urine Mucus 0 SEEN 01/01/21 15:20: U Random Total Protein 25.8 H, Ur Random Sodium 32, Urine Creatinine 64.90, Protein/Creatinin Ratio 398 H, Urine Potassium 19.0, Urine Chloride 31 01/02/21 04:50: WBC 12.4 H, RBC 3.00 L, Hgb 10.0 L, Hct 30.6 L, MCV 102.0 H, MCH 33.3 H, MCHC 32.7, RDW Std Deviation 52.2 H, RDW Coeff of Sully 13.8, Plt Count 234, MPV 10.1, Immature Gran % (Auto) 1.200 H, Neut % (Auto) 81.8 H, Lymph % (Auto) 8.6 L, [place] % (Auto) 6.5, Eos % (Auto) 1.5, Baso % (Auto) 0.4, Absolute Neuts (auto) 10.1 H, Absolute Lymphs (auto) 1.07, Nucleated RBC % 0 01/02/21 04:50: Sodium 136, Potassium 4.4, Chloride 104, Carbon Dioxide 24.0, Anion Gap 8, BUN 33 H, Creatinine 4.07 H, Estim Creat Clear Calc 16.02, Est GFR (MDRD) Af Amer 19 L, Est GFR (MDRD) Non-Af 16 L, BUN/Creatinine Ratio 8.1 L, Glucose 82, Calcium 7.7 L Charges/Coding Visit Charges Inpatient E&M: 26305 Subs Hosp L2
[2021-01-02] MEDS: Lactated Ringers 1,000 ML 60 ML IV (15:08)
[2021-01-02] MEDS: Menthol/Lanolin/Calamine/Znox 113 GM Tube 1 APPLIC TOPICAL (20:54)
[2021-01-02] MEDS: Acetaminophen 325 MG Tablet 650 MG PO (20:55)
[2021-01-02] MEDS: Atorvastatin Calcium 10 MG Tablet 5 MG PO (20:56)
[2021-01-03] VITALS (13 sets, daily range): BP systolic 93–106; BP diastolic 56–67; PULSE 98–112; RESP 17–18; TEMP 36.3–38.7; O2SAT 94–99
[2021-01-03] MEDS: Lactated Ringers 1,000 ML 60 ML IV (05:42)
[2021-01-03 08:38] LABS: Anion Gap 3 (5-15); BUN 13 mg/dL (7-18); BUN/Creat Ratio 14.4 RATIO (10-20); Calcium,Total 8.1 mg/dL (8.5-10.1); Chloride 106 mmol/L (98-107); EST Glomerular Filtration Rate 89 mL/min (>60); Est Glom Filt Rate - Afr Amer 107 mL/min (>60); Estimated Creatinine Clearance 71.44 ml/min; Glucose 90 mg/dL (74-106); Potassium 4.3 mmol/L (3.5-5.1); Sodium Level 136 mmol/L (136-145)
--- NOTE | 2021-01-03 10:13 | RAD_ITS ---
STUDY: X-RAY CHEST REASON FOR EXAM: Male, 70 years old. Fever, covid R/O Pneumonia TECHNIQUE: Single AP portable view of the chest. COMPARISON: Comparison is made with prior study dated 12/29/2020. FINDINGS: EKG electrodes are seen. Since prior study, presents with progressive bibasilar atelectasis and/or infiltrates with blunting of both costophrenic angles. Vascular congestion. Normal size heart. Normal mediastinum and ankur. Normal visualized pulmonary arteries. Normal visualized aortic arch and descending thoracic aorta. Normal visualized thoracic spine. Normal visualized ribs, clavicles, and shoulders. Once again, multiple nodules are seen within the soft tissues. There is no demonstrated abnormality of the visualized soft tissue structures of the upper abdomen. RAD/Chest 1 View (Portable) IMPRESSION: Findings suggestive of progressive vascular congestion with bibasilar atelectasis and/or infiltrate worse at the left lung base. Blunting of both costophrenic angles. Electronically Signed: Yonatan Correa MD at 14:22 EST , Service support ,
[2021-01-03] MEDS: dexAMETHasone 4 MG Tablet 6 MG PO (10:16)
[2021-01-03] MEDS: Phenobarbital 32.4 MG Tablet PO ×2 (10:18→22:43)
[2021-01-03] MEDS: Phenytoin Na 100 MG Capsule 200 MG PO ×2 (10:18→18:08)
[2021-01-03] MEDS: Menthol/Lanolin/Calamine/Znox 113 GM Tube 1 APPLIC TOPICAL ×2 (10:19→22:45)
[2021-01-03] MEDS: Primidone 250 MG Tablet PO ×2 (10:19→22:44)
[2021-01-03] MEDS: ETHOSUXIMIDE 250 MG CAPSULE PO ×2 (10:20→22:44)
[2021-01-03] MEDS: Lidocaine 5% Patch 1 PATCH TOPICAL (10:22)
[2021-01-03 10:33] LABS: Absolute Lymphocyte Count 0.83 X10^3/uL (0.83-4.51); Absolute Neutrophil Count 13.1 X10^3/uL (2.0-7.7); Basophil# 0.08 X10^3/uL; Basophil% 0.5 % (0-1); Eosinophil# 0.19 X10^3/uL; Eosinophils% 1.2 % (0-5); Hematocrit 31.9 % (40-54); Hemoglobin 10.8 g/dL (13.0-16.5); Lymphocyte # 0.83 X10^3/ul (0.83-4.51); Lymphocyte % 5.4 % (19-41); Mean Corp Hgb Conc 33.9 g/dL (32-36); Mean Corpuscular Volume 100.3 fL (80-94); Mean Platelet Vol. 10.3 fl (6.2-12.0); Monocyte# 0.97 X10^3/uL; Monocyte% 6.4 % (0-10); NRBC Flagged by Analyzer 0 % (0-5); Neutrophil # 13.07 X10^3/uL (2.7-7.7); Neutrophil % 85.7 % (47-70); Platelet Count 304 K/mm3 (150-450); RBC Distribution Width CV 13.4 % (11.6-14.6); RBC Distribution Width SD 49.7 fl (35.1-43.9); Red Blood Count 3.18 M/mm3 (4.6-6.2); White Blood Count 15.3 K/mm3 (4.4-11.0)
--- NOTE | 2021-01-03 11:25 | CASEMGMT ---
RAMU called patient's son Shayne. RAMU let Shayne know that [facility] only has a few beds set aside for COVID patients and she did not anticipate any openings any time soon. RAMU did let Shayne know that [facility] needs a place for patient before patient is ready to leave as that facility will get insurance authorization. Getting insurance authorization can take a day or two. Shayne said he talked with a couple places that would take patient after 10 days. Shayne wasn't sure how long patient needs to be in the hospital. RAMU told him [facility] is not sure and RAMU would have to ask the physician. Toña Carrasquillo BARREL WASHER SANAM
[2021-01-03] MEDS: levoFLOXacin IV 750 MG/150 ML BAG 100 MG IV (11:28)
--- NOTE | 2021-01-03 11:58 | CASEMGMT ---
RAMU asked physician during rounds when he thought patient would be ready for discharge. Dr Mckee thought patient would likely be ready . RAMU called patient's brother Shayne and let him know this information. Shayne is waiting on a call back from [facility] to see if patient can come on day 10 or day 11. RAMU reminded Shayne that it will take a couple of days for insurance to give their answer. The sooner [facility] has a place the better. Toña Carrasquillo [employer]HOU[employer] SUPERVISOR SANAM
[2021-01-03] MEDS: 0.9% Saline Lock 10 ML Syringe IV ×2 (12:43→18:10)
[2021-01-03] MEDS: Furosemide 20 MG/2 ML VIAL IV ×2 (12:43→18:08)
--- NOTE | 2021-01-03 14:11 | PN.RENAL_ITS ---
Subjective Subjective Patient was not seen today due to active COVID-19 and to preserve PPE s/p puente cath placement No worsening breathing as per the nurse No N/V received lasix this am Objective Data Objective Data Vital Signs: Vital Signs Temp Pulse Resp BP Pulse Ox 98.6 F 101 H 18 102/59 L 94 01/03/21 11:10 01/03/21 11:10 01/03/21 11:10 01/03/21 11:10 01/03/21 11:50 Oxygen Flow Rate (L/min) 2 Oxygen Delivery Method Nasal Cannula Weight: 65.2 kg Body Mass Index (BMI) 20.0 Intake & Output: Intake and Output for Last 24 Hours 01/01/21 01/02/21 01/03/21 23:59 23:59 23:59 Intake Total 2491 / 2491 1132 / 1132 Output Total 4375 / 4375 2425 / 2425 Balance -1884 / -1884 -1293 / -1293 Lab / Micro Data Result Diagrams: 01/03/21 07:57 01/03/21 07:56 Labs: Laboratory Results - last 24 hr 01/03/21 07:56: Sodium 136, Potassium 4.3, Chloride 106, Carbon Dioxide 27.0, Anion Gap 3 L, BUN 13, Creatinine 0.90, Estim Creat Clear Calc 71.44, Est GFR (MDRD) Af Amer 107, Est GFR (MDRD) Non-Af 89, BUN/Creatinine Ratio 14.4, Glucose 90, Calcium 8.1 L 01/03/21 07:57: WBC 15.3 H, RBC 3.18 L, Hgb 10.8 L, Hct 31.9 L, MCV 100.3 H, MCH 34.0 H, MCHC 33.9, RDW Std Deviation 49.7 H, RDW Coeff of Sully 13.4, Plt Count 304, MPV 10.3, Immature Gran % (Auto) 0.800, Neut % (Auto) 85.7 H, Lymph % (Auto) 5.4 L, [place] % (Auto) 6.4, Eos % (Auto) 1.2, Baso % (Auto) 0.5, Absolute Neuts (auto) 13.1 H, Absolute Lymphs (auto) 0.83, Nucleated RBC % 0 Micro: Microbiology 01/01/21 15:20 Urine, Random Urine Culture - Preliminary Culture exhibits no growth. 12/31/20 22:27 Stool Stool Occult Blood (PRIMITIVO) - Final 12/28/20 13:00 Nasal Secretion SARS-CoV-2 Antigen (Rapid) - Final SARS-CoV-2 (COVID 19) 12/23/20 08:59 Blood Culture (Wb) - Anticubital Left Blood Culture - Final No growth in 5 days. 12/23/20 08:10 Blood Culture (Wb) - Anticubital Left Bacteria Detection (P CR) - Final Coag Negative Staph 12/23/20 08:10 Blood Culture (Wb) - Anticubital Left Blood Culture - Final Coag Negative Staph 12/23/20 08:02 Urine Catheter - Puente Urine Culture - Final Escherichia coli Physical Exam Narrative No physical exam performed today due to active COVID-19 infection VS reviewed Assessment & Plan Assessment/Plan (1) Acute kidney injury: PLAN: ARTURO from AUR Cr improved to normal with placing puente cath polyuric . UOP > 5l. Polyuric is expected to resolve in 48-72 hours if physiologic Agree with holding IVF. Avoid diuretic since he is polyuric Check RFP in am thank you
--- NOTE | 2021-01-03 15:51 | PN.HOSP_ITS ---
Subjective Subjective Patient has fever T-max 100.5 last night. Patient also having tachycardia, heart rate in low 100s, shortness of breath, persistence cough mainly dry along with leukocytosis with left shift. Started on Levaquin. Patient had ceftriaxone for 6 days during this hospital course. Objective Data Objective Data Vital Signs: Vital Signs Temp Pulse Resp BP Pulse Ox 98.6 F 102 H 18 102/59 L 94 01/03/21 11:10 01/03/21 15:00 01/03/21 11:10 01/03/21 11:10 01/03/21 11:50 Oxygen Flow Rate (L/min) 2 Oxygen Delivery Method Nasal Cannula Weight: 143 lb 11.862 oz Body Mass Index (BMI) 20.0 Intake & Output: Intake and Output for Last 24 Hours 01/01/21 01/02/21 01/03/21 23:59 23:59 23:59 Intake Total 2491 / 2491 1132 / 1132 Output Total 4375 / 4375 2425 / 2425 Balance -1884 / -1884 -1293 / -1293 Lab / Micro Data Result Diagrams: 01/03/21 07:57 01/03/21 07:56 Labs: Laboratory Results - last 24 hr 01/03/21 07:56: Sodium 136, Potassium 4.3, Chloride 106, Carbon Dioxide 27.0, Anion Gap 3 L, BUN 13, Creatinine 0.90, Estim Creat Clear Calc 71.44, Est GFR (MDRD) Af Amer 107, Est GFR (MDRD) Non-Af 89, BUN/Creatinine Ratio 14.4, Glucose 90, Calcium 8.1 L 01/03/21 07:57: WBC 15.3 H, RBC 3.18 L, Hgb 10.8 L, Hct 31.9 L, MCV 100.3 H, MCH 34.0 H, MCHC 33.9, RDW Std Deviation 49.7 H, RDW Coeff of Sully 13.4, Plt Count 304, MPV 10.3, Immature Gran % (Auto) 0.800, Neut % (Auto) 85.7 H, Lymph % (Auto) 5.4 L, [place] % (Auto) 6.4, Eos % (Auto) 1.2, Baso % (Auto) 0.5, Absolute Neuts (auto) 13.1 H, Absolute Lymphs (auto) 0.83, Nucleated RBC % 0 Micro: Microbiology 01/01/21 15:20 Urine, Random Urine Culture - Preliminary Culture exhibits no growth. 12/31/20 22:27 Stool Stool Occult Blood (PRIMITIVO) - Final 12/28/20 13:00 Nasal Secretion SARS-CoV-2 Antigen (Rapid) - Final SARS-CoV-2 (COVID 19) 12/23/20 08:59 Blood Culture (Wb) - Anticubital Left Blood Culture - Final No growth in 5 days. 12/23/20 08:10 Blood Culture (Wb) - Anticubital Left Bacteria Detection (PCR) - Final Coag Negative Staph 12/23/20 08:10 Blood Culture (Wb) - Anticubital Left Blood Culture - Final Coag Negative Staph 12/23/20 08:02 Urine Catheter - Whitaker Urine Culture - Final Escherichia coli Radiography Diagnostic Testing: Radiology Impression Chest X-Ray 01/03/21 10:13 IMPRESSION: Findings suggestive of progressive vascular congestion with bibasilar atelectasis and/or infiltrate worse at the left lung base. Blunting of both costophrenic angles. Electronically Signed: Yonatan Correa MD at 14:22 EST , Service support , Physical Exam Narrative General: Awake, oriented x3, Cooperative HEENT: Atraumatic, PERRLA, EOMI, Normocephalic Oral: No Gingival or Mucosal Lesions/ Ulcerations Neck: Supple, No JVD, Negative Carotid Bruits Lungs: Air entry diminished in bilateral lung bases. No crepitation/rhonchi Cardiovascular: Regular rate, Regular Rhythm, Normal S1, P2 loud, No murmurs, BP on lower side Abdomen: Loose stool, diarrhea. No blood. Bowel Sounds Present, Soft, Non Tender, Non-Distended : Whitaker catheter is in. 1000 mL urine output quickly. No renal angle tenderness. No suprapubic tenderness. Extremities: No edema, Capillary Refill Less than 3 Seconds Skin: Multiple subcutaneous nodules all over the body. Mild bruise present on right leg from fall since admission. Musculoskeletal: No Tenderness to Palpation of Joints or Extremities. Mild weakness of both lower extremity muscles at knee and hip joint Neurological: Cranial nerves II-XII grossly intact. DTR 2+. Babinski sign neg ative. No hypertonia or clonus or muscle rigidity. Psych/Mental Status: Flat affect. Const alert, oriented x3 and no apparent distress General Appearance: cooperative HEENT normocephalic and moist oral mucous membranes Eyes PERRL, EOMs intact bilaterally and conjunctivae normal Neck supple and no JVD Resp normal respiratory effort, no retractions and no use of accessory muscles Auscultation: crackles; Negative for rales, rhonchi or wheezes Cardio regular rate, regular rhythm, S1 normal heart sound, S2 normal heart sound and no murmurs GI soft to palpation, non-tender and non-distended; Negative for hepatosplenomegaly Extremity no clubbing, cyanosis or edema Neuro no focal motor deficits and no sensory deficits noted Psych affect normal Appearance: appropriate Assessment & Plan Assessment/Plan (1) Rhabdomyolysis: (2) Acute UTI: (3) Acute kidney injury: (4) Sepsis: (5) Acute respiratory failure with hypoxia: (6) Pulmonary edema: PLAN: 1. Acute kidney injury, most probably from rhabdomyolysis and septic shock mostly due to UTI: Patient is admitted in ICU. Urine culture shows E. coli 80,000-100,000 colonies. Blood culture coagulase negative staph. Urine output is low, oliguria. On IV ceftriaxone. Patient was on norepinephrine drip last night, 12/25 currently off. 12/27: Patient was transferred to PCU on 12/26. No fever. Patient has coagulase- negative staph, skin contamination. Urine culture also not in pathology cringe but since patient has septic shock he is on ceftriaxone. 12/28: Patient on 6-day of ceftriaxone. Will stop tomorrow. Rapid antigen came positive just before discharge to SNF. PCR is ordered. 12/29: PCR is positive. Patient was a started on dexamethasone yesterday. ID consulted and is out of window for remdesivir. Exact time of onset of cold symptoms unclear patient has chronic shortness of breath and he was found laying on the floor, reason for admission with rhabdomyolysis. Discussed with the case hardener will need SNF with new application for pre-CERT. recommended to isolate for 20 days from 12/28. 12/30: As per nursing staff does not see any tonicoclonic seizure-like movement but patient was generalized shaking. Patient has altered mental status. Concern for nonconvulsive seizure. Phenytoin level 3.9, phenobarbital 42. Serum phosphorus 2.4. Serum magnesium normal. Leukocytosis better. Albumin level 1.7. Dilantin dose increased to 200 mg twice daily from 100 mg 3 times daily. EEG done not read. CT head did not show any acute change. SOC neurology consult order for further opinion. Dilantin has interaction with amiodarone but continued with cardiothoracic surgeon recommendation. Hypophosphatemia, phosphorus replaced. Discussed with the nursing staff. MRI brain ordered 12/31: Hemoglobin dropped to 10 g from 12.2, platelet count 1 87,000. BUN/creatinine elevated 21/1.91 overall it seems the patient might have occult GI bleed, acute anemia from Lovenox but does not require any transfusion. Lovenox discontinued. IV fluid Ringer lactate 500 mL x 2 bolus. MRI postponed for tomorrow. His medications were adjusted as per creatinine clearance SOC neurology consult reviewed and agree with MRI brain. EEG unrevealing. 01/01: Hemoglobin is stable at 10.2. Stool for occult blood negative. MRI done. Report pending. Leukocytosis. One-time temperature 100.4 ?F. Monitor clinically. If patient spikes again will send blood culture. 01/02: MRI reported no acute intracranial abnormality. Hemoglobin is stable. 2. Acute kidney injury on CKD stage IIIa: Patient creatinine was 1.01 on baseline increased to 1.91 on 12/31 and 3.23 on 01/01. BUN elevated. Probably prerenal from occult GI bleed or loose stool although stool for occult blood is negative. IV fluid Ringer lactate. Electrolytes in normal range. Catering Administrative Assistant consult requested. Urine lites ordered. Does not have burning micturition or symptoms of UTI 01/02: ARTURO most likely due to urine retention/bladder outlet obstruction. Whitaker catheterization. Continue IV fluid support. No need for APPLICATION DEVELOPMENT SPECIALIST. UA positive for mild pyuria/LE but patient does not have burning micturition. Patient had antibiotic from 12/24-12/29 and I do not think patient has current indication for antibiotic Acute hypoxic respiratory failure secondary to pulmonary edema with severe pulm onary hypertension and COVID-19 pneumonia with bacterial superinfection: CT angiogram negative for PE. Since patient had fluid overload and Lasix was given. PT OT and speech evaluation. 2D echo was noted and shows RVSP of 62 mainly consistent with severe pulmonary hypertension. Mild TR and AR. 01/03: Repeat chest x-ray shows progressive vascular congestion with bibasilar atelectasis and infiltrate worse in the left lung base. Patient given Lasix 20 mg x 2 as blood pressure in low 100s. Started on Lasix 20 mg IV twice daily for 2 days. Incentive spirometry, Pep to continue. Mucinex D. Blood cultures x2, urinary antigens and sputum culture ordered. Earlier patient tested rapid antigen and then PCR Covid positive. 3. Paroxysmal A. fib with RVR: On IV amiodarone and heparin drip. Patient history of frequent fall with debilitation not good candidate for long-term oral systemic anticoagulant therapy. Patient heparin drip changed to Lovenox. Patient not a good candidate for anticoagulant and is not a good candidate for for NOACs because of strong P glycoprotein inducer as his multiple antiepileptic medications including Dilantin, phenobarbital and primidone. 4. Neurofibromatosis with history of epilepsy: Phenytoin level was normal. Patient on ethosuximide, phenobarbital, primidone and Dilantin. Phenobarbital level is elevated at 44.3. Phenytoin level normal DVT: On Lovenox as mentioned above. Total time of the visit including total time spent in counseling or coordination of care, (more than 50% of the total time, spent in obtaining medical information from nurses and other ancillary care providers,explaining to the patient about labs, imaging, diagnosis and management), discussion with consultants, review of labs and imaging is 30 minutes. Microbiology Past 72 Hours 01/01/21 15:20 Urine, Random Urine Culture - Preliminary Culture exhibits no growth. 12/31/20 22:27 Stool Stool Occult Blood (PRIMITIVO) - Final Laboratory Results 01/03/21 07:56: Sodium 136, Potassium 4.3, Chloride 106, Carbon Dioxide 27.0, Anion Gap 3 L, BUN 13, Creatinine 0.90, Estim Creat Clear Calc 71.44, Est GFR (MDRD) Af Amer 107, Est GFR (MDRD) Non-Af 89, BUN/Creatinine Ratio 14.4, Glucose 90, Calcium 8.1 L 01/03/21 07:57: WBC 15.3 H, RBC 3.18 L, Hgb 10.8 L, Hct 31.9 L, MCV 100.3 H, MCH 34.0 H, MCHC 33.9, RDW Std Deviation 49.7 H, RDW Coeff of Sully 13.4, Plt Count 304, MPV 10.3, Immature Gran % (Auto) 0.800, Neut % (Auto) 85.7 H, Lymph % (Auto) 5.4 L, [place] % (Auto) 6.4, Eos % (Auto) 1.2, Baso % (Auto) 0.5, Absolute Neuts (auto) 13.1 H, Absolute Lymphs (auto) 0.83, Nucleated RBC % 0 Charges/Coding Visit Charges Inpatient E&M: 34416 Subs Hosp L3
[2021-01-03] MEDS: guaiFENesin/D-Methorphan TAB.SR.12H 1 TABLET PO (18:08)
[2021-01-03] MEDS: Acetaminophen 325 MG Tablet 650 MG PO (22:43)
[2021-01-03] MEDS: Atorvastatin Calcium 10 MG Tablet 5 MG PO (22:43)
[2021-01-04] VITALS (13 sets, daily range): BP systolic 85–103; BP diastolic 49–64; PULSE 83–91; RESP 16–18; TEMP 36.3–37.2; O2SAT 94–97
[2021-01-04] MEDS: Acetaminophen 325 MG Tablet 650 MG PO (06:18)
[2021-01-04] MEDS: Lidocaine 5% Patch 1 PATCH TOPICAL (08:50)
[2021-01-04] MEDS: levoFLOXacin IV 500 MG/100 ML BAG 100 MG IV (08:51)
[2021-01-04] MEDS: Menthol/Lanolin/Calamine/Znox 113 GM Tube 1 APPLIC TOPICAL ×2 (08:52→21:21)
[2021-01-04] MEDS: Furosemide 20 MG/2 ML VIAL IV ×2 (08:53→17:17)
[2021-01-04] MEDS: 0.9% Saline Lock 10 ML Syringe IV ×2 (08:53→17:17)
[2021-01-04] MEDS: dexAMETHasone 4 MG Tablet 6 MG PO (08:53)
[2021-01-04] MEDS: Phenytoin Na 100 MG Capsule 200 MG PO ×2 (08:53→17:17)
[2021-01-04] MEDS: Aspirin 81 MG TAB.CHEW PO (08:53)
[2021-01-04] MEDS: Phenobarbital 32.4 MG Tablet PO ×2 (08:53→21:23)
[2021-01-04] MEDS: Primidone 250 MG Tablet PO ×2 (08:53→21:22)
[2021-01-04] MEDS: guaiFENesin/D-Methorphan TAB.SR.12H 1 TABLET PO ×2 (08:53→21:22)
[2021-01-04] MEDS: ETHOSUXIMIDE 250 MG CAPSULE PO ×2 (08:54→21:23)
--- NOTE | 2021-01-04 09:06 | CASEMGMT ---
RAMU received a call this am from patient's sister Criss Hawthorne. She said she is the contact center engineer for today. Criss said they have been talking with Madelyn at [facility]. Madelyn told Criss that [facility] can take patient on Saturday. Criss said [facility] is full, but [facility] has beds. Criss asked about when patient will be ready for discharge. RAMU told her the physician yesterday was thinking he will be ready tomorrow. Criss said she will have Shayne handle that part of it. RAMU let Criss know RAMU will send the referral. RAMU faxed referral to Madelyn and also called leaving her a voice mail. Toña MARION
--- NOTE | 2021-01-04 13:44 | CASEMGMT ---
RAMU spoke with Madelyn from [facility]. They can take patient, but he will probably have to go to [facility] as [facility] is full. Madelyn will start the pre-cert tomorrow am. Patient will not be able to come to either facility until his 11th day out from his positive test. This will be Saturday01-08-21. Patient will also have to be symptom free at time of d/c. RAMU called patient's sister Criss and let her know that [facility] has accepted patient. RAMU let Criss know that patient will not be able to go until Saturday at the earliest. She thanked for the update. Criss said she is sure they will have more questions. Plan: d/c to [facility] pending pre-cert and patient being 11 days out from his positive test which was on 12-28-20. This will be Saturday01-08-21. Toña Carrasquillo TERRITORY REPRESENTATIVE SANAM
--- NOTE | 2021-01-04 14:44 | WOUNDNOTE ---
wound photo:buttocks (left buttock with small draining area)
--- NOTE | 2021-01-04 18:58 | PCM.PN.HOSP ---
Subjective Subjective Had a temperature of 101.7 last night, but otherwise feels fine and feels better than when he came in Objective Data Objective Data Vital Signs: Vital Signs Temp Pulse Resp BP Pulse Ox 97.7 F L 89 18 103/64 94 01/04/21 16:50 01/04/21 16:50 01/04/21 16:50 01/04/21 16:50 01/04/21 16:50 Oxygen Flow Rate (L/min) 2 Oxygen Delivery Method Nasal Cannula Weight: 131 lb 9.855 oz Body Mass Index (BMI) 20.0 Intake & Output: Intake and Output for Last 24 Hours 01/03/21 01/04/21 01/05/21 03:59 03:59 03:59 Intake Total 2491 / 2491 1612 / 1612 1159 / 1159 Output Total 4375 / 4375 4925 / 4925 1625 / 1625 Balance -1884 / -1884 -3313 / -3313 -466 / -466 Lab / Micro Data Result Diagrams: 01/05/21 06:08 01/05/21 06:08 Micro: Microbiology 01/01/21 15:20 Urine, Random Urine Culture - Final Culture exhibits no growth. 01/03/21 18:30 Urine Catheter - Whitaker Legionella Antigen - Final 01/03/21 18:30 Urine Catheter - Whitaker Streptococcus pneumoniae Antigen (M - Final 12/31/20 22:27 Stool Stool Occult Blood (PRIMITIVO) - Final 12/28/20 13:00 Nasal Secretion SARS-CoV-2 Antigen (Rapid) - Final SARS-CoV-2 (COVID 19) 12/23/20 08:59 Blood Culture (Wb) - Anticubital Left Blood Culture - Final No growth in 5 days. 12/23/20 08:10 Blood Culture (Wb) - Anticubital Left Bacteria Detection (PCR) - Final Coag Negative Staph 12/23/20 08:10 Blood Culture (Wb) - Anticubital Left Blood Culture - Final Coag Negative Staph 12/23/20 08:02 Urine Catheter - Whitaker Urine Culture - Final Escherichia coli Physical Exam Const alert, oriented x3 and no apparent distress General Appearance: cooperative HEENT normocephalic and moist oral mucous membranes Eyes PERRL, EOMs intact bilaterally and conjunctivae normal Neck supple and no JVD Resp normal respiratory effort, no retractions and no use of accessory muscles Auscultation: diminished lung sounds; Negative for crackles, rales, rhonchi or wheezes Cardio regular rate, regular rhythm, S1 normal heart sound, S2 normal heart sound and no murmurs GI soft to palpation, non-tender and non-distended; Negative for hepatosplenomegaly Extremity no clubbing, cyanosis or edema Skin Skin Narrative: Multiple neurofibromas Neuro no focal motor deficits and no sensory deficits noted Psych Appearance: appropriate Mood & Affect: flat affect Assessment & Plan Assessment/Plan (1) Rhabdomyolysis: (2) Acute UTI: (3) Acute kidney injury: (4) Sepsis: (5) Acute respiratory failure with hypoxia: (6) Pulmonary edema: PLAN: 1. Acute kidney injury, most probably from rhabdomyolysis and septic shock mostly due to UTI: Patient is admitted in ICU. Urine culture shows E. coli 80,000-100,000 colonies. Blood culture coagulase negative staph. Urine output is low, oliguria. On IV ceftriaxone. Patient was on norepinephrine drip last night, 12/25 currently off. 12/27: Patient was transferred to PCU on 12/26. No fever. Patient has coagulase-negative staph, skin contamination. Urine culture also not in pathology cringe but since patient has septic shock he is on ceftriaxone. 12/28: Patient on 6-day of ceftriaxone. Will stop tomorrow. Rapid antigen came positive just before discharge to SNF. PCR is ordered. 12/29: PCR is positive. Patient was a started on dexamethasone yesterday. ID consulted and is out of window for remdesivir. Exact time of onset of cold symptoms unclear patient has chronic shortness of breath and he was found laying on the floor, reason for admission with rhabdomyolysis. Discussed with the supportive employment case manager will need SNF with new application for pre-CERT. recommended to isolate for 20 days from 12/28. 12/30: As per nursing staff does not see any tonicoclonic seizure-like movement but patient was generalized shaking. Patient has altered mental status. Concern for nonconvulsive seizure. Phenytoin level 3.9, phenobarbital 42. Serum phosphorus 2.4. Serum magnesium normal. Leukocytosis better. Albumin level 1.7. Dilantin dose increased to 200 mg twice daily from 100 mg 3 times daily. EEG done not read. CT head did not show any acute change. SOC neurology consult order for further opinion. Dilantin has interaction with amiodarone but continued with departmental secretary recommendation. Hypophosphatemia, phosphorus replaced. Discussed with the nursing staff. MRI brain ordered 12/31: Hemoglobin dropped to 10 g from 12.2, platelet count 1 87,000. BUN/creatinine elevated 21/1.91 overall it seems the patient might have occult GI bleed, acute anemia from Lovenox but does not require any transfusion. Lovenox discontinued. IV fluid Ringer lactate 500 mL x 2 bolus. MRI postponed for tomorrow. His medications were adjusted as per creatinine clearance SOC neurology consult reviewed and agree with MRI brain. EEG unrevealing. 01/01: Hemoglobin is stable at 10.2. Stool for occult blood negative. MRI done. Report pending. Leukocytosis. One-time temperature 100.4 ?F. Monitor clinically. If patient spikes again will send blood culture. 01/02: MRI reported no acute intracranial abnormality. Hemoglobin is stable. 2. Acute kidney injury on CKD stage IIIa: Patient creatinine was 1.01 on baseline increased to 1.91 on 12/31 and 3.23 on 01/01. BUN elevated. Probably prerenal from occult GI bleed or loose stool although stool for occult blood is negative. IV fluid Ringer lactate. Electrolytes in normal range. Studio Musician consult requested. Urine lites ordered. Does not have burning micturition or symptoms of UTI 01/02: ARTURO most likely due to urine retention/bladder outlet obstruction. Whitaker catheterization. Continue IV fluid support. No need for GEOTHERMAL OPERATIONS MANAGER. UA positive for mild pyuria/LE but patient does not have burning micturition. Patient had antibiotic from 12/24-12/29 and I do not think patient has current indication for antibiotic 01/04/2021: ARTURO is resolved mostly due to the urinary retention will be Whitaker in place 3. Acute hypoxic respiratory failure secondary to pulmonary edema with severe pulmonary hypertension and COVID-19 pneumonia with bacterial superinfection: CT angiogram negative for PE. Since patient had fluid overload and Lasix was given. PT OT and speech evaluation. 2D echo was noted and shows RVSP of 62 mainly consistent with severe pulmonary hypertension. Mild TR and AR. 01/03: Repeat chest x-ray shows progressive vascular congestion with bibasilar atelectasis and infiltrate worse in the left lung base. Patient given Lasix 20 mg x 2 as blood pressure in low 100s. Started on Lasix 20 mg IV twice daily for 2 days. Incentive spirometry, Pep to continue. Mucinex D. Blood cultures x2, urinary antigens and sputum culture ordered. Earlier patient tested rapid antigen and then PCR Covid positive. 4. Paroxysmal A. fib with RVR: On IV amiodarone and heparin drip. Patient history of frequent fall with debilitation not good candidate for long-term oral systemic anticoagulant therapy. Patient heparin drip changed to Lovenox. Patient not a good candidate for anticoagulant and is not a good candidate for for NOACs because of strong P glycoprotein inducer as his multiple antiepileptic medications including Dilantin, phenobarbital and primidone. 5. Neurofibromatosis with history of epilepsy: Phenytoin level was normal. Patient on ethosuximide, phenobarbital, primidone and Dilantin. Phenobarbital level is elevated at 44.3. Phenytoin level normal DVT: SCDs Charges/Coding Visit Charges Inpatient E&M: 91479 Subs Hosp L2
[2021-01-04] MEDS: Atorvastatin Calcium 10 MG Tablet 5 MG PO (21:21)
[2021-01-05] VITALS (14 sets, daily range): BP systolic 83–93; BP diastolic 46–61; PULSE 79–90; RESP 17–18; TEMP 36.4–37; O2SAT 84–98
[2021-01-05 06:21] LABS: Absolute Lymphocyte Count 1.11 X10^3/uL (0.83-4.51); Absolute Neutrophil Count 7.3 X10^3/uL (2.0-7.7); Basophil# 0.07 X10^3/uL; Basophil% 0.7 % (0-1); Eosinophil# 0.42 X10^3/uL; Eosinophils% 4.4 % (0-5); Hematocrit 29.4 % (40-54); Hemoglobin 9.9 g/dL (13.0-16.5); Lymphocyte # 1.11 X10^3/ul (0.83-4.51); Lymphocyte % 11.5 % (19-41); Mean Corp Hgb Conc 33.7 g/dL (32-36); Mean Corpuscular Hgb 33.8 pg (27.0-32.0); Mean Corpuscular Volume 100.3 fL (80-94); Mean Platelet Vol. 9.3 fl (6.2-12.0); Monocyte# 0.61 X10^3/uL; Monocyte% 6.3 % (0-10); NRBC Flagged by Analyzer 0 % (0-5); Neutrophil # 7.32 X10^3/uL (2.7-7.7); Platelet Count 243 K/mm3 (150-450); RBC Distribution Width CV 13.4 % (11.6-14.6); RBC Distribution Width SD 49.4 fl (35.1-43.9); Red Blood Count 2.93 M/mm3 (4.6-6.2); White Blood Count 9.6 K/mm3 (4.4-11.0)
[2021-01-05 07:16] LABS: Anion Gap 7 (5-15); BUN 11 mg/dL (7-18); BUN/Creat Ratio 15.2 RATIO (10-20); Calcium,Total 8.1 mg/dL (8.5-10.1); Chloride 99 mmol/L (98-107); Creatinine, Serum 0.72 mg/dL (0.70-1.30); EST Glomerular Filtration Rate 114 mL/min (>60); Est Glom Filt Rate - Afr Amer 138 mL/min (>60); Estimated Creatinine Clearance 58.38 ml/min; Glucose 83 mg/dL (74-106); Potassium 3.9 mmol/L (3.5-5.1); Sodium Level 135 mmol/L (136-145)
--- NOTE | 2021-01-05 09:02 | CASEMGMT ---
RAMU faxed updated clinicals to Madelyn with [facility]. Toña Carrasquillo FRENCH FOLDER SANAM
[2021-01-05] MEDS: levoFLOXacin IV 500 MG/100 ML BAG 100 MG IV (09:38)
[2021-01-05] MEDS: Menthol/Lanolin/Calamine/Znox 113 GM Tube 1 APPLIC TOPICAL ×2 (09:38→20:49)
[2021-01-05] MEDS: Lidocaine 5% Patch 1 PATCH TOPICAL (09:38)
[2021-01-05] MEDS: ETHOSUXIMIDE 250 MG CAPSULE PO ×2 (09:39→20:46)
[2021-01-05] MEDS: Phenobarbital 32.4 MG Tablet PO ×2 (09:39→20:48)
[2021-01-05] MEDS: Aspirin 81 MG TAB.CHEW PO (09:39)
[2021-01-05] MEDS: guaiFENesin/D-Methorphan TAB.SR.12H 1 TABLET PO ×2 (09:39→20:47)
[2021-01-05] MEDS: Phenytoin Na 100 MG Capsule 200 MG PO ×2 (09:39→17:05)
[2021-01-05] MEDS: Primidone 250 MG Tablet PO ×2 (09:39→20:47)
[2021-01-05] MEDS: dexAMETHasone 4 MG Tablet 6 MG PO (09:39)
--- NOTE | 2021-01-05 10:53 | CASEMGMT ---
Patient has a Healthcare Power of Machine Joiner Cementer and a Healthcare Living Will in his chart. Documents were completed this visit. Toña MARION
--- NOTE | 2021-01-05 18:23 | PCM.PN.HOSP ---
Subjective Subjective Remains afebrile. Doing well, no issues overnight. Feels better than when he came in. Objective Data Objective Data Vital Signs: Vital Signs Temp Pulse Resp BP Pulse Ox 97.8 F 79 18 86/55 L 84 01/05/21 15:12 01/05/21 15:12 01/05/21 15:12 01/05/21 17:04 01/05/21 16:48 Oxygen Flow Rate (L/min) 2 Oxygen Delivery Method Nasal Cannula Weight: 130 lb 8.218 oz Body Mass Index (BMI) 20.0 Intake & Output: Intake and Output for Last 24 Hours 01/04/21 01/05/21 01/06/21 03:59 03:59 03:59 Intake Total 1612 / 1612 1399 / 1399 660 / 660 Output Total 4925 / 4925 2325 / 2325 900 / 900 Balance -3313 / -3313 -926 / -926 -240 / -240 Lab / Micro Data Result Diagrams: 01/05/21 06:08 01/05/21 06:08 Labs: Laboratory Results - last 24 hr 01/05/21 06:08: WBC 9.6, RBC 2.93 L, Hgb 9.9 L, Hct 29.4 L, MCV 100.3 H, MCH 33.8 H, MCHC 33.7, RDW Std Deviation 49.4 H, RDW Coeff of Sully 13.4, Plt Count 243, MPV 9.3, Immature Gran % (Auto) 1.100 H, Neut % (Auto) 76.0 H, Lymph % (Auto) 11.5 L, Forest % (Auto) 6.3, Eos % (Auto) 4.4, Baso % (Auto) 0.7, Absolute Neuts (auto) 7.3, Absolute Lymphs (auto) 1.11, Nucleated RBC % 0 01/05/21 06:08: Sodium 135 L, Potassium 3.9, Chloride 99, Carbon Dioxide 29.0, Anion Gap 7, BUN 11, Creatinine 0.72, Estim Creat Clear Calc 58.38, Est GFR (MDRD) Af Amer 138, Est GFR (MDRD) Non-Af 114, BUN/Creatinine Ratio 15.2, Glucose 83, Calcium 8.1 L Micro: Microbiology 01/01/21 15:20 Urine, Random Urine Culture - Final Culture exhibits no growth. 01/03/21 18:30 Urine Catheter - Whitaker Legionella Antigen - Final 01/03/21 18:30 Urine Catheter - Whitaker Streptococcus pneumoniae Antigen (M - Final 12/31/20 22:27 Stool Stool Occult Blood (PRIMITIVO) - Final 12/28/20 13:00 Nasal Secretion SARS-CoV-2 Antigen (Rapid) - Final SARS-CoV-2 (COVID 19) 12/23/20 08:59 Blood Culture (Wb) - Anticubital Left Blood Culture - Final No growth in 5 days. 12/23/20 08:10 Blood Culture (Wb) - Anticubital Left Bacteria Detection (PCR) - Final Coag Negative Staph 12/23/20 08:10 Blood Culture (Wb) - Anticubital Left Blood Culture - Final Coag Negative Staph 12/23/20 08:02 Urine Catheter - Whitaker Urine Culture - Final Escherichia coli Physical Exam Const alert, oriented x3 and no apparent distress General Appearance: cooperative HEENT normocephalic and moist oral mucous membranes Eyes PERRL, EOMs intact bilaterally and conjunctivae normal Neck supple and no JVD Resp normal respiratory effort, no retractions and no use of accessory muscles Auscultation: diminished lung sounds; Negative for crackles, rales, rhonchi or wheezes Cardio regular rate, regular rhythm, S1 normal heart sound, S2 normal heart sound and no murmurs GI soft to palpation, non-tender and non-distended; Negative for hepatosplenomegaly Extremity no clubbing, cyanosis or edema Skin Skin Narrative: Multiple neurofibromas Neuro no focal motor deficits and no sensory deficits noted Psych affect normal Appearance: appropriate Mood & Affect: flat affect Assessment & Plan Assessment/Plan (1) Rhabdomyolysis: (2) Acute UTI: (3) Acute kidney injury: (4) Sepsis: (5) Acute respiratory failure with hypoxia: (6) Pulmonary edema: PLAN: 1. Acute kidney injury, most probably from rhabdomyolysis and septic shock mostly due to UTI: Patient is admitted in ICU. Urine culture shows E. coli 80,000-100,000 colonies. Blood culture coagulase negative staph. Urine output is low, oliguria. On IV ceftriaxone. Patient was on norepinephrine drip last night, 12/25 currently off. 12/27: Patient was transferred to PCU on 12/26. No fever. Patient has coagulase-negative staph, skin contamination. Urine culture also not in pathology cringe but since patient has septic shock he is on ceftriaxone. 12/28: Patient on 6-day of ceftriaxone. Will stop tomorrow. Rapid antigen came positive just before discharge to [facility]. PCR is ordered. 12/29: PCR is positive. Patient was a started on dexamethasone yesterday. ID consulted and is out of window for remdesivir. Exact time of onset of cold symptoms unclear 12/30: As per nursing staff does not see any tonicoclonic seizure-like movement but patient was generalized shaking. Patient has altered mental status. Concern for nonconvulsive seizure. Phenytoin level 3.9, phenobarbital 42. Serum phosphorus 2.4. Serum magnesium normal. Leukocytosis better. Albumin level 1.7. Dilantin dose increased to 200 mg twice daily from 100 mg 3 times daily. EEG done not read. CT head did not show any acute change. SOC neurology consult order for further opinion. Dilantin has interaction with amiodarone but continued with senior salesforce developer recommendation. Hypophosphatemia, phosphorus replaced. Discussed with the nursing staff. MRI brain ordered 12/31: Hemoglobin dropped to 10 g from 12.2, platelet count 1 87,000. BUN/creatinine elevated 21/1.91 overall it seems the patient might have occult GI bleed, acute anemia from Lovenox but does not require any transfusion. Lovenox discontinued. IV fluid Ringer lactate 500 mL x 2 bolus. MRI postponed for tomorrow. His medications were adjusted as per creatinine clearance SOC neurology consult reviewed and agree with MRI brain. EEG unrevealing. 01/01: Hemoglobin is stable at 10.2. Stool for occult blood negative. MRI done. Report pending. Leukocytosis. One-time temperature 100.4 ?F. Monitor clinically. If patient spikes again will send blood culture. 01/02: MRI reported no acute intracranial abnormality. Hemoglobin is stable. 01/05/2021: ARTURO has resolved UTI has been treated 2. Acute kidney injury on CKD stage IIIa: Patient creatinine was 1.01 on baseline increased to 1.91 on 12/31 and 3.23 on 01/01. BUN elevated. Probably prerenal from occult GI bleed or loose stool although stool for occult blood is negative. IV fluid Ringer lactate. Electrolytes in normal range. Linotype Worker consult requested. Urine lites ordered. Does not have burning micturition or symptoms of UTI 01/02: ARTURO most likely due to urine retention/bladder outlet obstruction. Whitaker catheterization. Continue IV fluid support. No need for HOTEL RESERVATIONIST. UA positive for mild pyuria/LE but patient does not have burning micturition. Patient had antibiotic from 12/24-12/29 and I do not think patient has current indication for antibiotic 01/04/2021: ARTURO is resolved mostly due to the urinary retention will be Whitaker in place 3. Acute hypoxic respiratory failure secondary to pulmonary edema with severe pulmonary hypertension and COVID-19 pneumonia with bacterial superinfection: CT angiogram negative for PE. Since patient had fluid overload and Lasix was given. PT OT and speech evaluation. 2D echo was noted and shows RVSP of 62 mainly consistent with severe pulmonary hypertension. Mild TR and AR. 01/03: Repeat chest x-ray shows progressive vascular congestion with bibasilar atelectasis and infiltrate worse in the left lung base. Patient given Lasix 20 mg x 2 as blood pressure in low 100s. Started on Lasix 20 mg IV twice daily for 2 days. Incentive spirometry, Pep to continue. Mucinex D. Blood cultures x2, urinary antigens and sputum culture ordered. Earlier patient tested rapid antigen and then PCR Covid positive. 01/05/2021: Continue with Levaquin secondary to bacterial superinfection is still waiting to obtain sputum culture 4. Paroxysmal A. fib with RVR: On IV amiodarone and heparin drip. Patient history of frequent fall with debilitation not good candidate for long-term oral systemic anticoagulant therapy. Patient heparin drip changed to Lovenox. Patient not a good candidate for anticoagulant and is not a good candidate for for NOACs because of strong P glycoprotein inducer as his multiple antiepileptic medications including Dilantin, phenobarbital and primidone. 01/05/2021: Continue with p.o. amiodarone, heparin drip was discontinued 5. Neurofibromatosis with history of epilepsy: Phenytoin level was normal. Patient on ethosuximide, phenobarbital, primidone and Dilantin. Phenobarbital level is elevated at 44.3. Phenytoin level normal DVT: SCDs Charges/Coding Visit Charges Inpatient E&M: 02852 Subs Hosp L2
[2021-01-05] MEDS: Atorvastatin Calcium 10 MG Tablet 5 MG PO (20:47)
[2021-01-06] VITALS (14 sets, daily range): BP systolic 81–94; BP diastolic 54–64; PULSE 80–91; RESP 16–18; TEMP 36.4–37.1; O2SAT 95–99
[2021-01-06] MEDS: Lidocaine 5% Patch 1 PATCH TOPICAL (08:59)
[2021-01-06] MEDS: Menthol/Lanolin/Calamine/Znox 113 GM Tube 1 APPLIC TOPICAL ×2 (09:00→22:39)
[2021-01-06] MEDS: dexAMETHasone 4 MG Tablet 6 MG PO (09:00)
[2021-01-06] MEDS: ETHOSUXIMIDE 250 MG CAPSULE PO ×2 (09:00→22:39)
[2021-01-06] MEDS: Phenytoin Na 100 MG Capsule 200 MG PO ×2 (09:00→16:09)
[2021-01-06] MEDS: levoFLOXacin IV 500 MG/100 ML BAG 100 MG IV (09:01)
[2021-01-06] MEDS: Aspirin 81 MG TAB.CHEW PO (09:01)
[2021-01-06] MEDS: Phenobarbital 32.4 MG Tablet PO ×2 (09:01→22:39)
[2021-01-06] MEDS: guaiFENesin/D-Methorphan TAB.SR.12H 1 TABLET PO ×2 (09:02→22:39)
[2021-01-06] MEDS: Primidone 250 MG Tablet PO ×2 (09:02→22:39)
--- NOTE | 2021-01-06 10:49 | CASEMGMT ---
RAMU called Madelyn with [employer]. She has not heard from insurance yet. Toña Carrasquillo PHOTOGRAPHIC PLATEMAKER SANAM
--- NOTE | 2021-01-06 11:18 | CASEMGMT ---
SW received a call from Crissrobert Hawthorne, patient's sister. SW answered her questions. Criss is aware patient is ready to go as long as insurance approves patient. Plan: d/c Saturday01-08-21 to [facility] under skilled level of care. As long as insurance approves patient. Toña Carrasquillo TAX CONSULTANT SANAM
--- NOTE | 2021-01-06 12:31 | CASEMGMT ---
RAMU received a voice mail from [facility] and patient was approved to go to [facility]. ARMU called patient's sister Criss and let her know patient's insurance approved him to go to [facility] Saturday. Criss asked RAMU to fax the advance directives to [facility] so Shayne can sign admission papers. RAMU faxed advanced directives to [facility]. Plan: d/c to [facility] under skilled level of care on a convalescent stay.
--- NOTE | 2021-01-06 17:56 | PN.HOSP_ITS ---
Subjective Subjective Doing well, no issues overnight. Feels little bit tired today. Afebrile for 48 hours Objective Data Objective Data Vital Signs: Vital Signs Temp Pulse Resp BP Pulse Ox 97.8 F 86 18 93/59 L 96 01/06/21 16:07 01/06/21 16:07 01/06/21 16:07 01/06/21 16:07 01/06/21 16:07 Oxygen Flow Rate (L/min) 2 Oxygen Delivery Method Nasal Cannula Weight: 128 lb 0.006 oz Body Mass Index (BMI) 20.0 Intake & Output: Intake and Output for Last 24 Hours 01/05/21 01/06/21 01/07/21 03:59 03:59 03:59 Intake Total 1399 / 1399 1240 / 1240 550 / 550 Output Total 2325 / 2325 1925 / 1925 600 / 600 Balance -926 / -926 -685 / -685 -50 / -50 Lab / Micro Data Result Diagrams: 01/05/21 06:08 01/05/21 06:08 Micro: Microbiology 01/03/21 17:38 Blood Culture (Wb) - Right Hand Blood Culture - Preliminary No growth in 48 hours. 01/03/21 17:33 Blood Culture (Wb) - Left Hand Blood Culture - Preliminary No growth in 48 hours. 01/01/21 15:20 Urine, Random Urine Culture - Final Culture exhibits no growth. 01/03/21 18:30 Urine Catheter - Whitaker Legionella Antigen - Final 01/03/21 18:30 Urine Catheter - Whitaker Streptococcus pneumoniae Antigen (M - Final 12/31/20 22:27 Stool Stool Occult Blood (PRIMITIVO) - Final 12/28/20 13:00 Nasal Secretion SARS-CoV-2 Antigen (Rapid) - Final SARS-CoV-2 (COVID 19) 12/23/20 08:59 Blood Culture (Wb) - Anticubital Left Blood Culture - Final No growth in 5 days. 12/23/20 08:10 Blood Culture (Wb) - Anticubital Left Bacteria Detection ( PCR) - Final Coag Negative Staph 12/23/20 08:10 Blood Culture (Wb) - Anticubital Left Blood Culture - Final Coag Negative Staph 12/23/20 08:02 Urine Catheter - Whitaker Urine Culture - Final Escherichia coli Physical Exam Const alert, oriented x3 and no apparent distress General Appearance: cooperative HEENT normocephalic and moist oral mucous membranes Eyes PERRL, EOMs intact bilaterally and conjunctivae normal Neck supple and no JVD Resp normal respiratory effort, no retractions and no use of accessory muscles Auscultation: diminished lung sounds; Negative for crackles, rales, rhonchi or wheezes Cardio regular rate, regular rhythm, S1 normal heart sound, S2 normal heart sound and no murmurs GI soft to palpation, non-tender and non-distended; Negative for hepatosplenomegaly Extremity no clubbing, cyanosis or edema Skin Skin Narrative: Multiple neurofibromas Neuro no focal motor deficits and no sensory deficits noted Psych affect normal Appearance: appropriate Assessment & Plan Assessment/Plan (1) Rhabdomyolysis: (2) Acute UTI: (3) Acute kidney injury: (4) Sepsis: (5) Acute respiratory failure with hypoxia: (6) Pulmonary edema: PLAN: 1. Acute kidney injury, most probably from rhabdomyolysis and septic shock mostly due to UTI: Patient is admitted in ICU. Urine culture shows E. coli 80,000-100,000 colonies. Blood culture coagulase negative staph. Urine output is low, oliguria. On IV ceftriaxone. Patient was on norepinephrine drip last night, 12/25 currently off. 12/27: Patient was transferred to PCU on 12/26. No fever. Patient has coagulase- negative staph, skin contamination. Urine culture also not in pathology cringe but since patient has septic shock he is on ceftriaxone. 12/28: Patient on 6-day of ceftriaxone. Will stop tomorrow. Rapid antigen came positive just before discharge to SNF. PCR is ordered. 12/29: PCR is positive. Patient was a started on dexamethasone yesterday. ID consulted and is out of window for remdesivir. Exact time of onset of cold symptoms unclear 12/30: As per nursing staff does not see any tonicoclonic seizure-like movement but patient was generalized shaking. Patient has altered mental status. Concern for nonconvulsive seizure. Phenytoin level 3.9, phenobarbital 42. S jhonny phosphorus 2.4. Serum magnesium normal. Leukocytosis better. Albumin level 1.7. Dilantin dose increased to 200 mg twice daily from 100 mg 3 times daily. EEG done not read. CT head did not show any acute change. SOC neurology consult order for further opinion. Dilantin has interaction with amiodarone but continued with saw sharpener recommendation. Hypophosphatemia, phosphorus replaced. Discussed with the nursing staff. MRI brain ordered 12/31: Hemoglobin dropped to 10 g from 12.2, platelet count 1 87,000. BUN/creatinine elevated 21/1.91 overall it seems the patient might have occult GI bleed, acute anemia from Lovenox but does not require any transfusion. Lovenox discontinued. IV fluid Ringer lactate 500 mL x 2 bolus. MRI postponed for tomorrow. His medications were adjusted as per creatinine clearance SOC neurology consult reviewed and agree with MRI brain. EEG unrevealing. 01/01: Hemoglobin is stable at 10.2. Stool for occult blood negative. MRI done. Report pending. Leukocytosis. One-time temperature 100.4 ?F. Monitor clinically. If patient spikes again will send blood culture. 01/02: MRI reported no acute intracranial abnormality. Hemoglobin is stable. 01/05/2021: ARTURO has resolved UTI has been treated 2. Acute kidney injury on CKD stage IIIa: Patient creatinine was 1.01 on baseline increased to 1.91 on 12/31 and 3.23 on 01/01. BUN elevated. Probably prerenal from occult GI bleed or loose stool although stool for occult blood is negative. IV fluid Ringer lactate. Electrolytes in normal range. Manager Of Exhibitions And Collections consult requested. Urine lites ordered. Does not have burning micturition or symptoms of UTI 01/02: ARTURO most likely due to urine retention/bladder outlet obstruction. Whitaker catheterization. Continue IV fluid support. No need for PMO MANAGER. UA positive for mild pyuria/LE but patient does not have burning micturition. Patient had antibiotic from 12/24-12/29 and I do not think patient has current indication for antibiotic 01/04/2021: ARTURO is resolved mostly due to the urinary retention will be Whitaker in place 3. Acute hypoxic respiratory failure secondary to pulmonary edema with severe pulmonary hypertension and COVID-19 pneumonia with bacterial superinfection: CT angiogram negative for PE. Since patient had fluid overload and Lasix was given. PT OT and speech evaluation. 2D echo was noted and shows RVSP of 62 mainly consistent with severe pulmonary hypertension. Mild TR and AR. 01/03: Repeat chest x-ray shows progressive vascular congestion with bibasilar atelectasis and infiltrate worse in the left lung base. Patient given Lasix 20 mg x 2 as blood pressure in low 100s. Started on Lasix 20 mg IV twice daily for 2 days. Incentive spirometry, Pep to continue. Mucinex D. Blood cultures x2, urinary antigens and sputum culture ordered. Earlier patient tested rapid antigen and then PCR Covid positive. 01/05/2021: Continue with Levaquin secondary to bacterial superinfection is still waiting to obtain sputum culture 4. Paroxysmal A. fib with RVR: On IV amiodarone and heparin drip. Patient history of frequent fall with debilitation not good candidate for long-term oral systemic anticoagulant therapy. Patient heparin drip changed to Lovenox. Patient not a good candidate for anticoagulant and is not a good candidate for for NOACs because of strong P glycoprotein inducer as his multiple antiepileptic medications including Dilantin, phenobarbital and primidone. 01/05/2021: Continue with p.o. amiodarone, heparin drip was discontinued 5. Neurofibromatosis with history of epilepsy: Phenytoin level was normal. Patient on ethosuximide, phenobarbital, primidone and Dilantin. Phenobarbital level is elevated at 44.3. Phenytoin level normal Disposition: Plan for transfer to SNF on Saturday as this will be 11 days from positive Covid test DVT: SCDs Charges/Coding Visit Charges Inpatient E&M: 24777 Subs Hosp L2
[2021-01-06] MEDS: MELATONIN 3 MG TABLET PO (22:39)
[2021-01-06] MEDS: Atorvastatin Calcium 10 MG Tablet 5 MG PO (22:39)
[2021-01-07] VITALS (13 sets, daily range): BP systolic 87–99; BP diastolic 57–67; PULSE 80–88; RESP 15–18; TEMP 36.5–36.9; O2SAT 95–99
[2021-01-07 08:45] LABS: Absolute Lymphocyte Count 1.08 X10^3/uL (0.83-4.51); Absolute Neutrophil Count 6.3 X10^3/uL (2.0-7.7); Basophil# 0.06 X10^3/uL; Basophil% 0.7 % (0-1); Eosinophil# 0.26 X10^3/uL; Eosinophils% 3.1 % (0-5); Hematocrit 30.3 % (40-54); Hemoglobin 10.1 g/dL (13.0-16.5); Lymphocyte # 1.08 X10^3/ul (0.83-4.51); Lymphocyte % 12.8 % (19-41); Mean Corp Hgb Conc 33.3 g/dL (32-36); Mean Corpuscular Hgb 33.8 pg (27.0-32.0); Mean Corpuscular Volume 101.3 fL (80-94); Mean Platelet Vol. 9.7 fl (6.2-12.0); Monocyte% 7.1 % (0-10); NRBC Flagged by Analyzer 0 % (0-5); Neutrophil # 6.34 X10^3/uL (2.7-7.7); Platelet Count 258 K/mm3 (150-450); RBC Distribution Width CV 13.3 % (11.6-14.6); RBC Distribution Width SD 49.6 fl (35.1-43.9); Red Blood Count 2.99 M/mm3 (4.6-6.2); White Blood Count 8.5 K/mm3 (4.4-11.0)
[2021-01-07 09:09] LABS: Anion Gap 2 (5-15); BUN 8 mg/dL (7-18); Calcium,Total 8.2 mg/dL (8.5-10.1); Chloride 102 mmol/L (98-107); Creatinine, Serum 0.67 mg/dL (0.70-1.30); EST Glomerular Filtration Rate 125 mL/min (>60); Est Glom Filt Rate - Afr Amer 152 mL/min (>60); Glucose 87 mg/dL (74-106); Sodium Level 135 mmol/L (136-145)
[2021-01-07] MEDS: levoFLOXacin IV 500 MG/100 ML BAG 100 MG IV (09:52)
[2021-01-07] MEDS: Lidocaine 5% Patch 1 PATCH TOPICAL (09:55)
[2021-01-07] MEDS: Aspirin 81 MG TAB.CHEW PO (09:56)
[2021-01-07] MEDS: Primidone 250 MG Tablet PO ×2 (09:56→21:04)
[2021-01-07] MEDS: Phenobarbital 32.4 MG Tablet PO ×2 (09:56→21:04)
[2021-01-07] MEDS: dexAMETHasone 4 MG Tablet 6 MG PO (09:56)
[2021-01-07] MEDS: guaiFENesin/D-Methorphan TAB.SR.12H 1 TABLET PO ×2 (09:56→21:04)
[2021-01-07] MEDS: Phenytoin Na 100 MG Capsule 200 MG PO ×2 (09:56→17:30)
[2021-01-07] MEDS: ETHOSUXIMIDE 250 MG CAPSULE PO ×2 (09:57→21:04)
[2021-01-07] MEDS: Menthol/Lanolin/Calamine/Znox 113 GM Tube 1 APPLIC TOPICAL ×2 (10:00→21:04)
--- NOTE | 2021-01-07 11:49 | CM.ED ---
SW Note SW sent cortext to patient's MD requesting transfer to extended care and discharge summary be completed today so HENS can be completed. MD agreed. Anitha MELO
--- NOTE | 2021-01-07 12:47 | PCM.TXEXTCAR ---
Diet 01/07/21 09:45 Diet: Regular - General Food consistency:: Soft & Bite Sized Liquid Consistency:: Regular/Thin Type of Dietary Supplement:: Is pt able to select menu?: Yes Diet Comments: assist,alt. sips/bites, no straws; applesauce, apple juice w/ meals Routine Orders/Code Status Suppository Type: Dulcolax 10mg Suppository Frequency: Daily PRN Routine Lab Work: CBC and BMP Code Status: DNRCC-A Wound(s) right elbow: Wound Type: Abrasion right knee: Wound Type: Abrasion left buttock: Wound Type: small draining wound Coccyx: Wound Type: Pressure Injury Therapies Weight Bearing: Weight bearing as tolerated Extremity Affected:: Bilateral Lower Physical Therapy: Eval and Treat Occupational Therapy: Eval and Treat Speech Therapy: Eval and Treat Problem/Diagnosis (1) Rhabdomyolysis: Status: Acute (2) Acute UTI: Status: Acute (3) Acute kidney injury: Status: Acute (4) Sepsis: Status: Acute (5) Acute respiratory failure with hypoxia: Status: Acute (6) Pulmonary edema: Status: Acute Allergies/Procedures Done in Hospital Allergies No Known Allergies Allergy (Verified 12/23/20 07:49) Type of Care/Length of Stay Estimated LOS: Convalescent Care Less Than 30 days Type of Care Needed: Skilled Rehab Potential: Good Prognosis: Good Additional Orders/Day of Discharge Day of Discharge: 01/07/21 Dietary and Speech Recommendations Dietitian Recommendations/Changes: Will change diet to Cardiac - consistency per INDUSTRIAL GAS SERVICE HELPER - and provide applesauce and apple juice w/ meals Discharge Plan Admission Admit Date/Time: 12/23/20 11:18 Primary Reason for Your Visit: Acute kidney injury Attending Provider: Chase Bruno Primary Care Provider: Stephanie Tejada Consulting Providers: Hilary Stanley ; Femi Hernandez ; Agapito Herrera ; Liseth Orellana NP ; Maximus Lopez ; Valeria Hampton Discharge Orders/Prescriptions Prescriptions: New amiodarone 200 mg Tablet 200 mg PO BID Qty: 0 RF: 0 levofloxacin 750 mg tablet 750 mg PO DAILY 5 Days Qty: 5 RF: 0 phenytoin sodium extended 100 mg Capsule 200 mg PO BIDCM Qty: 0 RF: 0 phenobarbital 32.4 mg Tablet 32.4 mg PO BID Qty: 0 RF: 0 Continued ethosuximide [Zarontin] 250 MG capsule 250 mg PO BID RF: 0 primidone 250 MG tablet 250 mg PO BID RF: 0 simvastatin 10 mg Tablet 10 mg PO QHS RF: 0 fluticasone propionate 50 mcg/actuation [place],Suspension 1 spray INTRANASAL DAILY RF: 0 latanoprost 0.005 % Drops 1 drp EACH EYE DAILY RF: 0 vit D3-folic [id number] 2,000-800-0.32 unit-mcg-mg Tablet 1 tab PO DAILY RF: 0 Changed phenobarbital 32.4 MG tablet 32.4 mg PO BID Qty: 0 RF: 0 Discontinued phenytoin sodium extended 100 MG capsule 100 mg PO TID RF: 0 Referrals / Follow Up: Stephanie Tejada MD [Primary Care Provider] - Within 2 Weeks Thiago Mayorga MD [STAFF PHYSICIAN] - Within 2 Weeks (FOR SEIZURE WITH Neurofibromatosis) Maximus Lopez MD [STAFF PHYSICIAN] - Within 1 Month (as needed for UTI ) Disposition Disposition (needs filled in before D/C Order can be placed): Shelter Facility
--- NOTE | 2021-01-07 15:23 | PCM.PN.HOSP ---
Subjective Subjective Doing well, discussed with him the possibility of removing his Whitaker to see if he can void however he is hesitant to do this as he has had difficulty urinating on his own previously. Has been given Flomax secondary to his marginal blood pressures Objective Data Objective Data Vital Signs: Vital Signs Temp Pulse Resp BP Pulse Ox 97.7 F L 80 16 89/59 L 96 01/07/21 13:04 01/07/21 15:06 01/07/21 13:04 01/07/21 13:04 01/07/21 14:31 Oxygen Flow Rate (L/min) 2 Oxygen Delivery Method Nasal Cannula Weight: 126 lb 12.253 oz Body Mass Index (BMI) 20.0 Intake & Output: Intake and Output for Last 24 Hours 01/06/21 01/07/21 01/08/21 03:59 03:59 03:59 Intake Total 1240 / 1240 670 / 670 460 / 460 Output Total 1925 / 1925 800 / 800 700 / 700 Balance -685 / -685 -130 / -130 -240 / -240 Lab / Micro Data Result Diagrams: 01/07/21 08:05 01/07/21 08:05 Labs: Laboratory Results - last 24 hr 01/07/21 08:05: WBC 8.5, RBC 2.99 L, Hgb 10.1 L, Hct 30.3 L, MCV 101.3 H, MCH 33.8 H, MCHC 33.3, RDW Std Deviation 49.6 H, RDW Coeff of Sully 13.3, Plt Count 258, MPV 9.7, Immature Gran % (Auto) 1.300 H, Neut % (Auto) 75.0 H, Lymph % (Auto) 12.8 L, Humphreys % (Auto) 7.1, Eos % (Auto) 3.1, Baso % (Auto) 0.7, Absolute Neuts (auto) 6.3, Absolute Lymphs (auto) 1.08, Nucleated RBC % 0 01/07/21 08:05: Sodium 135 L, Potassium 4.0, Chloride 102, Carbon Dioxide 31.0, Anion Gap 2 L, BUN 8, Creatinine 0.67 L, Estim Creat Clear Calc 56.70, Est GFR (MDRD) Af Amer 152, Est GFR (MDRD) Non-Af 125, BUN/Creatinine Ratio 12.0, Glucose 87, Calcium 8.2 L Micro: Microbiology 01/03/21 17:38 Blood Culture (Wb) - Right Hand Blood Culture - Preliminary No growth in 48 hours. 01/03/21 17:33 Blood Culture (Wb) - Left Hand Blood Culture - Preliminary No growth in 48 hours. 01/01/21 15:20 Urine, Random Urine Culture - Final Culture exhibits no growth. 01/03/21 18:30 Urine Catheter - Whitaker Legionella Antigen - Final 01/03/21 18:30 Urine Catheter - Whitaker Streptococcus pneumoniae Antigen (M - Final 12/31/20 22:27 Stool Stool Occult Blood (PRIMITIVO) - Final 12/28/20 13:00 Nasal Secretion SARS-CoV-2 Antigen (Rapid) - Final SARS-CoV-2 (COVID 19) 12/23/20 08:59 Blood Culture (Wb) - Anticubital Left Blood Culture - Final No growth in 5 days. 12/23/20 08:10 Blood Culture (Wb) - Anticubital Left Bacteria Detection (PCR) - Final Coag Negative Staph 12/23/20 08:10 Blood Culture (Wb) - Anticubital Left Blood Culture - Final Coag Negative Staph 12/23/20 08:02 Urine Catheter - Whitaker Urine Culture - Final Escherichia coli Physical Exam Const alert, oriented x3 and no apparent distress General Appearance: cooperative HEENT normocephalic and moist oral mucous membranes Eyes PERRL, EOMs intact bilaterally and conjunctivae normal Neck supple and no JVD Resp normal respiratory effort, no retractions and no use of accessory muscles Auscultation: diminished lung sounds; Negative for crackles, rales, rhonchi or wheezes Cardio regular rate, regular rhythm, S1 normal heart sound, S2 normal heart sound and no murmurs GI soft to palpation, non-tender and non-distended; Negative for hepatosplenomegaly Extremity no clubbing, cyanosis or edema Skin Skin Narrative: Multiple neurofibromas Neuro no focal motor deficits and no sensory deficits noted Psych affect normal Appearance: appropriate Assessment & Plan Assessment/Plan (1) Rhabdomyolysis: (2) Acute UTI: (3) Acute kidney injury: (4) Sepsis: (5) Acute respiratory failure with hypoxia: (6) Pulmonary edema: PLAN: 1. Acute kidney injury, most probably from rhabdomyolysis and septic shock mostly due to UTI: Patient is admitted in ICU. Urine culture shows E. coli 80,000-100,000 colonies. Blood culture coagulase negative staph. Urine output is low, oliguria. On IV ceftriaxone. Patient was on norepinephrine drip last night, 12/25 currently off. 12/27: Patient was transferred to PCU on 12/26. No fever. Patient has coagulase-negative staph, skin contamination. Urine culture also not in pathology cringe but since patient has septic shock he is on ceftriaxone. 12/28: Patient on 6-day of ceftriaxone. Will stop tomorrow. Rapid antigen came positive just before discharge to [facility]. PCR is ordered. 12/29: PCR is positive. Patient was a started on dexamethasone yesterday. ID consulted and is out of window for remdesivir. Exact time of onset of cold symptoms unclear 12/30: As per nursing staff does not see any tonicoclonic seizure-like movement but patient was generalized shaking. Patient has altered mental status. Concern for nonconvulsive seizure. Phenytoin level 3.9, phenobarbital 42. Serum phosphorus 2.4. Serum magnesium normal. Leukocytosis better. Albumin level 1.7. Dilantin dose increased to 200 mg twice daily from 100 mg 3 times daily. EEG done not read. CT head did not show any acute change. SOC neurology consult order for further opinion. Dilantin has interaction with amiodarone but continued with leasing sales consultant recommendation. Hypophosphatemia, phosphorus replaced. Discussed with the nursing staff. MRI brain ordered 12/31: Hemoglobin dropped to 10 g from 12.2, platelet count 1 87,000. BUN/creatinine elevated 21/1.91 overall it seems the patient might have occult GI bleed, acute anemia from Lovenox but does not require any transfusion. Lovenox discontinued. IV fluid Ringer lactate 500 mL x 2 bolus. MRI postponed for tomorrow. His medications were adjusted as per creatinine clearance SOC neurology consult reviewed and agree with MRI brain. EEG unrevealing. 01/01: Hemoglobin is stable at 10.2. Stool for occult blood negative. MRI done. Report pending. Leukocytosis. One-time temperature 100.4 ?F. Monitor clinically. If patient spikes again will send blood culture. 01/02: MRI reported no acute intracranial abnormality. Hemoglobin is stable. 01/05/2021: ARTURO has resolved UTI has been treated 2. Acute kidney injury on CKD stage IIIa: Patient creatinine was 1.01 on baseline increased to 1.91 on 12/31 and 3.23 on 01/01. BUN elevated. Probably prerenal from occult GI bleed or loose stool although stool for occult blood is negative. IV fluid Ringer lactate. Electrolytes in normal range. Bilingual Speech Therapist consult requested. Urine lites ordered. Does not have burning micturition or symptoms of UTI 01/02: ARTURO most likely due to urine retention/bladder outlet obstruction. Whitaker catheterization. Continue IV fluid support. No need for FORENSIC ANTHROPOLOGIST. UA positive for mild pyuria/LE but patient does not have burning micturition. Patient had antibiotic from 12/24-12/29 and I do not think patient has current indication for antibiotic 01/04/2021: ARTURO is resolved mostly due to the urinary retention will be Whitaker in place 01/07/2021: We will leave Whitaker in place for discharge given urinary retention issues 3. Acute hypoxic respiratory failure secondary to pulmonary edema with severe pulmonary hypertension and COVID-19 pneumonia with bacterial superinfection: CT angiogram negative for PE. Since patient had fluid overload and Lasix was given. PT OT and speech evaluation. 2D echo was noted and shows RVSP of 62 mainly consistent with severe pulmonary hypertension. Mild TR and AR. 01/03: Repeat chest x-ray shows progressive vascular congestion with bibasilar atelectasis and infiltrate worse in the left lung base. Patient given Lasix 20 mg x 2 as blood pressure in low 100s. Started on Lasix 20 mg IV twice daily for 2 days. Incentive spirometry, Pep to continue. Mucinex D. Blood cultures x2, urinary antigens and sputum culture ordered. Earlier patient tested rapid antigen and then PCR Covid positive. 01/05/2021: Continue with Levaquin secondary to bacterial superinfection is still waiting to obtain sputum culture 01/07/2021: We will transition Levaquin from IV to p.o. and will plan for p.o. Levaquin on discharge 4. Paroxysmal A. fib with RVR: On IV amiodarone and heparin drip. Patient history of frequent fall with debilitation not good candidate for long-term oral systemic anticoagulant therapy. Patient heparin drip changed to Lovenox. Patient not a good candidate for anticoagulant and is not a good candidate for for NOACs because of strong P glycoprotein inducer as his multiple antiepileptic medications including Dilantin, phenobarbital and primidone. 01/05/2021: Continue with p.o. amiodarone, heparin drip was discontinued 5. Neurofibromatosis with history of epilepsy: Phenytoin level was normal. Patient on ethosuximide, phenobarbital, primidone and Dilantin. Phenobarbital level is elevated at 44.3. Phenytoin level normal Disposition: Plan for transfer to SNF on Saturday as this will be 11 days from positive Covid test DVT: SCDs Charges/Coding Visit Charges Inpatient E&M: 26580 Subs Hosp L2
--- NOTE | 2021-01-07 20:47 | CM.ED ---
RAMU Note RAMU attached 0060 on HENS. HENS completed. Plan: Patient will go to [place] on 01/08/21 Anitha MELO
[2021-01-07] MEDS: Atorvastatin Calcium 10 MG Tablet 5 MG PO (21:04)
[2021-01-07] MEDS: MELATONIN 3 MG TABLET PO (21:04)
[2021-01-08] VITALS (7 sets, daily range): BP systolic 82–96; BP diastolic 56–63; PULSE 77–95; RESP 16–18; TEMP 36.8–37.1; O2SAT 86–99
[2021-01-08] MEDS: levoFLOXacin 750 MG Tablet PO (06:34)
[2021-01-08] MEDS: Phenobarbital 32.4 MG Tablet PO (09:22)
[2021-01-08] MEDS: guaiFENesin/D-Methorphan TAB.SR.12H 1 TABLET PO (09:22)
[2021-01-08] MEDS: Lidocaine 5% Patch 1 PATCH TOPICAL (09:22)
[2021-01-08] MEDS: Primidone 250 MG Tablet PO (09:22)
[2021-01-08] MEDS: Aspirin 81 MG TAB.CHEW PO (09:23)
[2021-01-08] MEDS: Phenytoin Na 100 MG Capsule 200 MG PO (09:23)
[2021-01-08] MEDS: dexAMETHasone 4 MG Tablet 6 MG PO (09:23)
[2021-01-08] MEDS: Amiodarone 200 MG Tablet PO (09:23)
[2021-01-08] MEDS: ETHOSUXIMIDE 250 MG CAPSULE PO (09:23)
[2021-01-08] MEDS: Menthol/Lanolin/Calamine/Znox 113 GM Tube 1 APPLIC TOPICAL (09:24)
--- NOTE | 2021-01-08 10:58 | DS.PCM_ITS ---
Providers Date of Admission: 12/23/20 Primary Care Physician: Dr. Stephanie Tejada MD Consultations 12/25/20 18:42 Consult: Cardiology Routine Consulting Provider: Hilary Stanley Reason for Consult: Sinus tach EMERGENT Consult: Yes MD Notified: Yes Date Notified: 12/25/20 Time Notified: 17:58 Method of Notification: Verbal Consult: Oracle Database Developer / Pulmonary Medicine Routine Consulting Provider: Pulmonary Medicine [facility] Reason for Consult: Sinus tach, UTI, Rhabdo EMERGENT Consult: No MD Notified: Yes Date Notified: 12/25/20 Time Notified: 17:59 Method of Notification: Text 12/28/20 19:09 Consult: Infectious Disease Routine Consulting Provider: Maximus Lopez Reason for Consult: covid EMERGENT Consult: No Notified: Yes Date Notified: 12/29/20 Time Notified: 06:37 Method of Notification: Text 01/01/21 09:56 Consult: Nephrology Routine Consulting Provider: Valeria Hampton Reason for Consult: ARTURO, ateology unclear, covid 19 pneumonia EMERGENT Consult: No MD Notified: Yes Date Notified: 01/01/21 Time Notified: 10:10 Method of Notification: Answering Service Comments:: had rhabdomyolysis initially, found on floor, covid 01/03/21 23:59 Consult: Onc/Wound/molding machine operator Routine Comment: Reason for Consult:: abscess around coccyx area Reason For Visit: ARTURO RHABDOMYOLYSIS Diagnosis Discharge Diagnosis (1) Rhabdomyolysis: Status: Acute Code(s): M62.82 - Rhabdomyolysis (2) Acute UTI: Status: Acute Code(s): N39.0 - Urinary tract infection, site not specified (3) Acute kidney injury: Status: Acute Code(s): N17.9 - Acute kidney failure, unspecified (4) Sepsis: Status: Acute Code(s): A41.9 - Sepsis, unspecified organism (5) Acute respiratory failure with hypoxia: Status: Acute Code(s): J96.01 - Acute respiratory failure with hypoxia (6) Pulmonary edema: Status: Acute Code(s): J81.1 - Chronic pulmonary edema Medications at Discharge Home Medications ethosuximide [Zarontin] 250 mg PO BID 03/09/13 primidone 250 mg PO BID 03/09/13 fluticasone propionate 1 spray INTRANASAL DAILY 12/23/20 latanoprost 1 drp EACH EYE DAILY 12/23/20 simvastatin 10 mg PO QHS 12/23/20 vit D3-folic [id number] 1 tab PO DAILY 12/23/20 amiodarone 200 mg PO BID #0 tab 12/28/20 phenobarbital 32.4 mg PO BID #0 tab 12/28/20 levofloxacin 750 mg PO DAILY 5 Days #5 tab 01/07/21 phenobarbital 32.4 mg PO BID #0 tab 01/07/21 phenytoin sodium extended 200 mg PO BIDCM #0 cap 01/07/21 Hospital Course Operations None Procedures 2-D Echocardiogram Summary of Care Provided Minutes Spent on Discharge: 45 Hospital Course: Per HPI: SABA DOMINGUEZ, is a 70 M who presents to the hospital after being found down for possible over 24 hours. He has a history of neurofibromatosis and has been getting weak over the last several days, he states that he has had multiple falls since Saturday and his last time he fell yesterday morning he was unable to get up. He was able to crawl and call for help and was brought to the ER. He has also had some weight loss, initially it was on purpose but he states lately he is just lost his appetite and has not been eating a whole lot at home. In the ER he was found to have an elevated CPK over 4000 with a creatinine of 2.36 which is above normal for him. He was also found to have a likely UTI with a leukocytosis. Hospital Course: 1. Acute kidney injury, most probably from rhabdomyolysis and septic shock mostly due to UTI: Patient is admitted in ICU. Urine culture shows E. coli 80,000-100,000 colonies. Blood culture coagulase negative staph. Urine output is low, oliguria. On IV ceftriaxone. Patient was on norepinephrine drip last night, 12/25 currently off. 12/27: Patient was transferred to PCU on 12/26. No fever. Patient has coagulase- negative staph, skin contamination. Urine culture also not in pathology cringe but since patient has septic shock he is on ceftriaxone. 12/28: Patient on 6-day of ceftriaxone. Will stop tomorrow. Rapid antigen came positive just before discharge to [facility]. PCR is ordered. 12/29: PCR is positive. Patient was a started on dexamethasone yesterday. ID consulted and is out of window for remdesivir. Exact time of onset of cold symptoms unclear 12/30: As per nursing staff does not see any tonicoclonic seizure-like movement but patient was generalized shaking. Patient has altered mental status. Concern for nonconvulsive seizure. Phenytoin level 3.9, phenobarbital 42. Serum phosphorus 2.4. Serum magnesium normal. Leukocytosis better. Albumin level 1.7. Dilantin dose increased to 200 mg twice daily from 100 mg 3 times daily. EEG done not read. CT head did not show any acute change. SOC neurol ogy consult order for further opinion. Dilantin has interaction with amiodarone but continued with rn community recommendation. Hypophosphatemia, phosphorus replaced. Discussed with the nursing staff. MRI brain ordered 12/31: Hemoglobin dropped to 10 g from 12.2, platelet count 1 87,000. BUN/creatinine elevated 21/1.91 overall it seems the patient might have occult GI bleed, acute anemia from Lovenox but does not require any transfusion. Lovenox discontinued. IV fluid Ringer lactate 500 mL x 2 bolus. MRI postponed for tomorrow. His medications were adjusted as per creatinine clearance SOC neurology consult reviewed and agree with MRI brain. EEG unrevealing. 01/01: Hemoglobin is stable at 10.2. Stool for occult blood negative. MRI done. Report pending. Leukocytosis. One-time temperature 100.4 ?F. Monitor clinically. If patient spikes again will send blood culture. 01/02: MRI reported no acute intracranial abnormality. Hemoglobin is stable. 01/05/2021: ARTURO has resolved UTI has been treated 2. Acute kidney injury on CKD stage IIIa: Patient creatinine was 1.01 on baseline increased to 1.91 on 12/31 and 3.23 on 01/01. BUN elevated. Probably prerenal from occult GI bleed or loose stool although stool for occult blood is negative. IV fluid Ringer lactate. Electrolytes in normal range. Email Production Consultant consult requested. Urine lites ordered. Does not have burning micturition or symptoms of UTI 01/02: ARTURO most likely due to urine retention/bladder outlet obstruction. Whitaker catheterization. Continue IV fluid support. No need for INSTALLERS MECHANICAL. UA positive for mild pyuria/LE but patient does not have burning micturition. Patient had antibiotic from 12/24-12/29 and I do not think patient has current indication for antibiotic 01/04/2021: ARTURO is resolved mostly due to the urinary retention will be Whitaker in place 01/07/2021: We will leave Whitaker in place for discharge given urinary retention issues 3. Acute hypoxic respiratory failure secondary to pulmonary edema with severe pulmonary hypertension and COVID-19 pneumonia with bacterial superinfection: CT angiogram negative for PE. Since patient had fluid overload and Lasix was given. PT OT and speech evaluation. 2D echo was noted and shows RVSP of 62 mainly consistent with severe pulmonary hypertension. Mild TR and AR. 01/03: Repeat chest x-ray shows progressive vascular congestion with bibasilar atelectasis and infiltrate worse in the left lung base. Patient given Lasix 20 mg x 2 as blood pressure in low 100s. Started on Lasix 20 mg IV twice daily for 2 days. Incentive spirometry, Pep to continue. Mucinex D. Blood cultures x2, urinary antigens and sputum culture ordered. Earlier patient tested rapid antigen and then PCR Covid positive. 01/05/2021: Continue with Levaquin secondary to bacterial superinfection is still waiting to obtain sputum culture 01/07/2021: We will transition Levaquin from IV to p.o. and will plan for p.o. Levaquin on discharge 4. Paroxysmal A. fib with RVR: On IV amiodarone and heparin drip. Patient history of frequent fall with debilitation not good candidate for long-term oral systemic anticoagulant therapy. Patient heparin drip changed to Lovenox. Patient not a good candidate for anticoagulant and is not a good candidate for for NOACs because of strong P glycoprotein inducer as his multiple antiepileptic medications including Dilantin, phenobarbital and primidone. 01/05/2021: Continue with p.o. amiodarone, heparin drip was discontinued 01/08/2021: His blood pressure is always low no need to send him back to the hospital unless his mean arterial pressures are sustained below 60. Can always s tart him on midodrine if you feel it necessary but low blood pressure in him does not necessitate readmission to the hospital 5. Neurofibromatosis with history of epilepsy: Phenytoin level was normal. Patient on ethosuximide, phenobarbital, primidone and Dilantin. Phenobarbital level is elevated at 44.3. Phenytoin level normal I discussed with him the plan for discharge today and he expressed understanding of the risk benefits of going to SNF and he would like to go to SNF today to start on his rehab. Physical Exam Const alert, oriented x3 and no apparent distress General Appearance: cooperative HEENT normocephalic and moist oral mucous membranes Eyes PERRL, EOMs intact bilaterally and conjunctivae normal Neck supple and no JVD Resp normal respiratory effort, no retractions and no use of accessory muscles Auscultation: diminished lung sounds; Negative for crackles, rales, rhonchi or wheezes Cardio regular rate, regular rhythm, S1 normal heart sound, S2 normal heart sound and no murmurs GI soft to palpation, non-tender and non-distended; Negative for hepatosplenomegaly Extremity no clubbing, cyanosis or edema Skin Skin Narrative: Multiple neurofibromas Neuro no focal motor deficits and no sensory deficits noted Psych affect normal Appearance: appropriate Weight / BMI Weight Weight: 127 lb 6.835 oz Body Mass Index (BMI) 20.0 ABG / Lab / Microbiology Data Result Diagrams: 01/07/21 08:05 01/07/21 08:05 Microbiology: Microbiology 01/03/21 17:38 Blood Culture (Wb) - Right Hand Blood Culture - Preliminary No growth in 48 hours. 01/03/21 17:33 Blood Culture (Wb) - Left Hand Blood Culture - Preliminary No growth in 48 hours. 01/01/21 15:20 Urine, Random Urine Culture - Final Culture exhibits no growth. 01/03/21 18:30 Urine Catheter - Whitaker Legionella Antigen - Final 01/03/21 18:30 Urine Catheter - Whitaker Streptococcus pneumoniae Antigen (M - Final 12/31/20 22:27 Stool Stool Occult Blood (PRIMITIVO) - Final 12/28/20 13:00 Nasal Secretion SARS-CoV-2 Antigen (Rapid) - Final SARS-CoV-2 (COVID 19) 12/23/20 08:59 Blood Culture (Wb) - Anticubital Left Blood Culture - Final No growth in 5 days. 12/23/20 08:10 Blood Culture (Wb) - Anticubital Left Bacteria Detection (PCR) - Final Coag Negative Staph 12/23/20 08:10 Blood Culture (Wb) - Anticubital Left Blood Culture - Final Coag Negative Staph 12/23/20 08:02 Urine Catheter - Whitaker Urine Culture - Final Escherichia coli Meaningful Use Info Meaningful Use Diagnoses (Choose all that apply): None applicable Discharge Plan Admission Admit Date/Time: 12/23/20 11:18 Primary Reason for Your Visit: Acute kidney injury Attending Provider: Chase Bruno Primary Care Provider: Stephanie Tejada Consulting Providers: Hilary Stanley ; Femi Hernandez ; Agapito Herrera ; Liseth Orellana NP ; Maximus Lopez ; Valeria Hampton Discharge Orders/Prescriptions Prescriptions: New amiodarone 200 mg Tablet 200 mg PO BID Qty: 0 RF: 0 levofloxacin 750 mg tablet 750 mg PO DAILY 5 Days Qty: 5 RF: 0 phenytoin sodium extended 100 mg Capsule 200 mg PO BIDCM Qty: 0 RF: 0 phenobarbital 32.4 mg Tablet 32.4 mg PO BID Qty: 0 RF: 0 Continued ethosuximide [Zarontin] 250 MG capsule 250 mg PO BID RF: 0 primidone 250 MG tablet 250 mg PO BID RF: 0 simvastatin 10 mg Tablet 10 mg PO QHS RF: 0 fluticasone propionate 50 mcg/actuation [place],Suspension 1 spray INTRANASAL DAILY RF: 0 latanoprost 0.005 % Drops 1 drp EACH EYE DAILY RF: 0 vit D3-folic [id number] 2,000-800-0.32 unit-mcg-mg Tablet 1 tab PO DAILY RF: 0 Changed phenobarbital 32.4 MG tablet 32.4 mg PO BID Qty: 0 RF: 0 Discontinued phenytoin sodium extended 100 MG capsule 100 mg PO TID RF: 0 Referrals / Follow Up: Stephanie Tejada MD [Primary Care Provider] - Within 2 Weeks Thiago Mayorga MD [STAFF PHYSICIAN] - Within 2 Weeks (FOR SEIZURE WITH Neurofibromatosis) Maximus Lopez MD [STAFF PHYSICIAN] - Within 1 Month (as needed for UTI ) Disposition Disposition (needs filled in before D/C Order can be placed): Care Home Facility Charges/Coding Visit Charges Inpatient E&M: 06995 Disch Hosp
--- NOTE | 2021-01-08 11:01 | NURSING ---
called [facility], report given to Kirti, transport to be here @ 1300
== END 2021-01-08 14:00 | disposition skilled nursing facility (03) | DRG 871 ==
LOC: ED 10:29 → MS3 11:23 → ICU 12-26 06:26 → PCU 12-27 09:37 → ICU 12-27 12:29
PROVIDERS: Internal Medicine; Internal Medicine Cardiovascular Disease; Internal Medicine Critical Care Medicine; Internal Medicine Interventional Cardiology; Nurse Practitioner Family; Admitting Provider Family Medicine; Emergency Provider Emergency Medicine; PCP Internal Medicine; Visit Provider Family Medicine
DX: A41.9 Sepsis, unspecified organism (principal); J96.01 Acute respiratory failure with hypoxia; R65.21 Severe sepsis with septic shock; U07.1 COVID-19; M62.82 Rhabdomyolysis; N17.9 Acute kidney failure, unspecified; N39.0 Urinary tract infection, site not specified; J81.1 Chronic pulmonary edema; E87.0 Hyperosmolality and hypernatremia; I48.92 Unspecified atrial flutter; D62 Acute posthemorrhagic anemia; E86.0 Dehydration; S16.1XXA Strain of muscle, fascia and tendon at neck level, initial encounter; S39.012A Strain of muscle, fascia and tendon of lower back, initial encounter; B96.20 Unspecified Escherichia coli [E. coli] as the cause of diseases classified elsewhere; N18.31 Chronic kidney disease, stage 3a; I27.20 Pulmonary hypertension, unspecified; I48.0 Paroxysmal atrial fibrillation; Q85.00 Neurofibromatosis, unspecified; R29.6 Repeated falls; G40.909 Epilepsy, unspecified, not intractable, without status epilepticus; Z79.899 Other long term (current) drug therapy; E87.8 Other disorders of electrolyte and fluid balance, not elsewhere classified; N32.0 Bladder-neck obstruction; Z77.22 Contact with and (suspected) exposure to environmental tobacco smoke (acute) (chronic); E83.39 Other disorders of phosphorus metabolism; R41.82 Altered mental status, unspecified; T45.515A Adverse effect of anticoagulants, initial encounter; Z87.891 Personal history of nicotine dependence; W18.30XA Fall on same level, unspecified, initial encounter; Y93.89 Activity, other specified; Y92.039 Unspecified place in apartment as the place of occurrence of the external cause; Y99.8 Other external cause status
CPT/HCPCS: 36415; 51702; 70450; 70551; 71045; 71250; 71275; 72125; 74176; 80048; 80053; 80076; 80184; 80185; 81001; 82274; 82436; 82550; 82570; 83605; 83690; 83735; 83880; 84100; 84133; 84156; 84300; 84484; 85025; 85027; 85610; 85730; 87040; 87077; 87086; 87088; 87149; 87186; 87426; 87449; 87635; 92507; 92526; 92610; 93005; 93306; 94668; 94762; 95819; 97110; 97116; 97162; 97165; 97530; 97535; 97802; 97803; 99285; J7030; J7050; J7120; Q9957; Q9967; U0005; A4216; C8929; J1940; U0003

== ENCOUNTER → 2021-03-13 | Outpatient (REF) | payer MEDICARE, MEDICAID, SELFPAY ==
[2021-03-13 10:38] LABS: Hematocrit 34.3 % (40-54); Hemoglobin 10.8 g/dL (13.0-16.5); Mean Corp Hgb Conc 31.5 g/dL (32-36); Mean Corpuscular Hgb 33.8 pg (27.0-32.0); Mean Corpuscular Volume 107.2 fL (80-94); Mean Platelet Vol. 9.4 fl (6.2-12.0); Platelet Count 565 K/mm3 (150-450); RBC Distribution Width CV 14.1 % (11.6-14.6); RBC Distribution Width SD 55.6 fl (35.1-43.9); White Blood Count 12.8 K/mm3 (4.4-11.0)
[2021-03-13 11:11] LABS: Anion Gap 9 (5-15); BUN 48 mg/dL (7-18); BUN/Creat Ratio 46.2 RATIO (10-20); Calcium,Total 8.8 mg/dL (8.5-10.1); Chloride 100 mmol/L (98-107); Creatinine, Serum 1.04 mg/dL (0.70-1.30); EST Glomerular Filtration Rate 75 mL/min (>60); Est Glom Filt Rate - Afr Amer 91 mL/min (>60); Glucose 104 mg/dL (74-106); Potassium 4.8 mmol/L (3.5-5.1); Sodium Level 130 mmol/L (136-145)
== END | disposition home or self-care (01) ==
LOC: OLS.WHLTCC 04:00
PROVIDERS: PCP Internal Medicine; Visit Provider Family Medicine
DX: I48.0 Paroxysmal atrial fibrillation (principal); R54 Age-related physical debility; M62.81 Muscle weakness (generalized); R26.2 Difficulty in walking, not elsewhere classified; R27.8 Other lack of coordination
CPT/HCPCS: 36415; 80048; 85027

== ENCOUNTER 2021-03-29 05:00 | Outpatient (REF) | payer MEDICARE, MEDICAID, SELFPAY ==
[2021-03-29 10:36] LABS: Phenytoin (Dilantin) Level 13.6 mL (10.0-20.0)
== END 2021-03-29 23:59 | disposition home or self-care (01) ==
LOC: OLS.WHLTCC 05:00
PROVIDERS: PCP Internal Medicine; Visit Provider Family Medicine
DX: G40.909 Epilepsy, unspecified, not intractable, without status epilepticus (principal)
CPT/HCPCS: 36415; 80185

== ENCOUNTER → 2021-04-01 | Outpatient (REF) | payer MEDICARE, MEDICAID, SELFPAY ==
[2021-04-01 10:53] LABS: Absolute Lymphocyte Count 1.62 X10^3/uL (0.83-4.51); Absolute Neutrophil Count 8.8 X10^3/uL (2.0-7.7); Basophil# 0.07 X10^3/uL; Basophil% 0.6 % (0-1); Eosinophil# 0.35 X10^3/uL; Hematocrit 32.8 % (40-54); Hemoglobin 10.7 g/dL (13.0-16.5); Lymphocyte # 1.62 X10^3/ul (0.83-4.51); Lymphocyte % 13.9 % (19-41); Mean Corp Hgb Conc 32.6 g/dL (32-36); Mean Corpuscular Hgb 35.5 pg (27.0-32.0); Mean Platelet Vol. 9.6 fl (6.2-12.0); Monocyte# 0.68 X10^3/uL; Monocyte% 5.8 % (0-10); NRBC Flagged by Analyzer 0 % (0-5); Neutrophil # 8.84 X10^3/uL (2.7-7.7); Neutrophil % 75.9 % (47-70); Platelet Count 406 K/mm3 (150-450); RBC Distribution Width CV 13.4 % (11.6-14.6); RBC Distribution Width SD 53.9 fl (35.1-43.9); Red Blood Count 3.01 M/mm3 (4.6-6.2); White Blood Count 11.7 K/mm3 (4.4-11.0)
[2021-04-01 11:03] LABS: Anion Gap 4 (5-15); BUN 20 mg/dL (7-18); BUN/Creat Ratio 42.9 RATIO (10-20); Calcium,Total 8.9 mg/dL (8.5-10.1); Chloride 103 mmol/L (98-107); Creatinine, Serum 0.47 mg/dL (0.70-1.30); EST Glomerular Filtration Rate 190 mL/min (>60); Est Glom Filt Rate - Afr Amer 229 mL/min (>60); Glucose 90 mg/dL (74-106); Potassium 4.2 mmol/L (3.5-5.1); Sodium Level 137 mmol/L (136-145)
== END | disposition home or self-care (01) ==
LOC: OLS.WHLTCC 04:00
PROVIDERS: PCP Internal Medicine; Referring Provider Family Medicine; Visit Provider Family Medicine
DX: M62.82 Rhabdomyolysis (principal); I48.0 Paroxysmal atrial fibrillation; R54 Age-related physical debility; M62.81 Muscle weakness (generalized); R26.2 Difficulty in walking, not elsewhere classified; R27.8 Other lack of coordination; E86.0 Dehydration
CPT/HCPCS: 36415; 80048; 85025

== ENCOUNTER → 2021-04-03 | Outpatient (REF) | payer MEDICARE, MEDICAID, SELFPAY ==
[2021-04-03 09:15] LABS: Hematocrit 32.2 % (40-54); Hemoglobin 10.5 g/dL (13.0-16.5); Mean Corp Hgb Conc 32.6 g/dL (32-36); Mean Corpuscular Hgb 35.2 pg (27.0-32.0); Mean Corpuscular Volume 108.1 fL (80-94); Mean Platelet Vol. 9.5 fl (6.2-12.0); Platelet Count 383 K/mm3 (150-450); RBC Distribution Width CV 13.2 % (11.6-14.6); RBC Distribution Width SD 52.9 fl (35.1-43.9); Red Blood Count 2.98 M/mm3 (4.6-6.2); White Blood Count 9.4 K/mm3 (4.4-11.0)
[2021-04-03 09:52] LABS: Anion Gap 3 (5-15); BUN 24 mg/dL (7-18); BUN/Creat Ratio 48.1 RATIO (10-20); Calcium,Total 8.7 mg/dL (8.5-10.1); Chloride 103 mmol/L (98-107); EST Glomerular Filtration Rate 175 mL/min (>60); Est Glom Filt Rate - Afr Amer 212 mL/min (>60); Glucose 90 mg/dL (74-106); Potassium 4.5 mmol/L (3.5-5.1); Sodium Level 136 mmol/L (136-145)
== END | disposition home or self-care (01) ==
LOC: OLS.WHLTCC 04:00
PROVIDERS: PCP Internal Medicine; Referring Provider Family Medicine; Visit Provider Family Medicine
DX: M62.82 Rhabdomyolysis (principal); I48.0 Paroxysmal atrial fibrillation; R54 Age-related physical debility; M62.81 Muscle weakness (generalized); R26.2 Difficulty in walking, not elsewhere classified; R27.8 Other lack of coordination
CPT/HCPCS: 36415; 80048; 85027

== ENCOUNTER → 2021-04-05 | Outpatient (REF) | payer MEDICARE, MEDICAID, SELFPAY ==
[2021-04-05 08:37] LABS: Color, Urine Yellow (Yellow); Glucose, Dipstick Normal (Normal); Ketone-Dipstick 5 mg/dl (Negative); Leukocyte Esterase-Dipstick 500 /ul (Negative); Nitrite-Dipstick Positive (Negative); Occult Blood-Urine 10 /ul (Negative); Protein-Dipstick 100 mg/dl (Negative); Specific Gravity, Urine 1.015 (1.002-1.030); Urine Bilirubin Dipstick Negative (Negative); Urine Clarity Cloudy (Clear); Urine Urobilinogen Normal (Normal)
== END | disposition home or self-care (01) ==
LOC: OLS.WHLTCC 08:11
PROVIDERS: PCP Internal Medicine; Referring Provider Family Medicine; Visit Provider Family Medicine
DX: N39.0 Urinary tract infection, site not specified (principal)
CPT/HCPCS: 81002; 87077; 87086; 87088; 87186